=== PATIENT | male | born 1945 | race Caucasian/White ===

== ENCOUNTER → 2017-10-26 13:02 | Outpatient (CLI) | payer MEDICARE, OTHER, SELFPAY ==
[2017-10-26 15:57] LABS: PSA,Total - Annual Screen 0.28 ng/mL (0.00-4.00)
== END ==
PROVIDERS: Family Provider Family Medicine; PCP Family Medicine; Visit Provider Urology
DX: Z12.5 Encounter for screening for malignant neoplasm of prostate (principal)
CPT/HCPCS: 36415; 84153; G0103

== ENCOUNTER → 2018-04-25 10:04 | Outpatient (CLI) | payer MEDICARE, OTHER, SELFPAY ==
[2018-04-25 11:13] LABS: PSA,Total- Diagnostic 0.37 ng/mL (0.0-4.0)
== END ==
PROVIDERS: Family Provider Family Medicine; PCP Family Medicine; Referring Provider Urology; Visit Provider Urology
DX: C61 Malignant neoplasm of prostate (principal)
CPT/HCPCS: 36415; 84153

== ENCOUNTER → 2018-05-10 08:12 | Outpatient (CLI) | payer MEDICARE, OTHER, SELFPAY ==
--- NOTE | 2018-05-10 08:18 | CT_ITS ---
STUDY: CT ABDOMEN AND PELVIS WITH AND WITHOUT CONTRAST REASON FOR EXAM: Male, 73 years old. Gross hematuria, 5 months follow-up. History of prostate cancer with radiation. RADIATION DOSAGE (If Supplied By Facility): CTDIvol = ( 23.88 ) mGy, DLP = ( 3432.61 ) mGycm TECHNIQUE: Transaxial images were obtained from the dome of the diaphragm to the symphysis pubis without oral contrast. 100 ml of Isovue 300 contrast was administered. Sagittal and coronal images were reconstructed. Individualized dose optimization techniques were used for this CT. COMPARISON: CT scan pelvis 01/06/2016. CT scan abdomen and pelvis 09/15/2015. FINDINGS: The visualized lung bases are unremarkable. The visualized portions of the heart are within normal limits. There is decreased attenuation of the liver consistent with steatosis. There are 3 small liver cysts. Normal gallbladder and extrahepatic biliary system. Normal spleen. There is an accessory spleen. Normal pancreas. Normal bilateral adrenal glands. There is a 5 mm hyperdense anterior mid right renal nodule, probably representing a hyperdense cyst. Otherwise normal kidney. Normal left kidney. Assessment the stomach is limited by nondistention. Normal small intestine. There are multiple colonic diverticula consistent with diverticulosis. The appendix is visualized on series 5, axial images 50-53 and it appears normal.. There is diffuse atherosclerotic calcification of the abdominal aorta, without a demonstrated aneurysm. Normal inferior vena cava. Normal retroperitoneum. There are brachytherapy seeds in the prostate gland. There is diffuse mural thickening of the urinary bladder, similar to the previous exams. There are multiple small urinary bladder diverticula, which were also previously present. There is a small umbilical hernia containing fat, but no bowel. There are diffuse degenerative changes of the visualized lumbar spine. CT/CT Abd/Pelvis W/WO Contrast IMPRESSION: Diffusely thick-walled urinary bladder with multiple small diverticula, not significantly different from the previous exams. Brachy therapy seeds in the prostate gland. Fatty liver. Small liver cysts. Colonic diverticulosis, without evidence for acute diverticulitis. Small hyperdense right renal cyst. No demonstrated urinary calculi or hydronephrosis. Atherosclerosis. No evidence for acute pathology. Electronically Signed: Toby Pagan MD at 20:12 EST , Service support ,
[2018-05-10 08:36] LABS: CREATININE FINGERSTICK 0.8 mg/dL (0.70-1.30); EGFR FINGERSTICK > 60.0000 mL/min (>60)
== END ==
PROVIDERS: Family Provider Family Medicine; PCP Family Medicine; Referring Provider Urology; Visit Provider Urology
DX: R31.0 Gross hematuria (principal)
CPT/HCPCS: 74178; Q9967

== ENCOUNTER 2018-06-12 09:53 | Day surgery (SDC) | payer MEDICARE, OTHER, SELFPAY ==
[2018-06-05 13:16] VITALS: BP 158/92; PULSE 96; RESP 18; TEMP 37.7; O2SAT 97; BMI 33.2
--- NOTE | 2018-06-05 14:06 | SDCEKG_ITS ---
Test Reason : Blood Pressure : / mmHG Vent. Rate : 091 BPM Atrial Rate : 091 BPM P-R Int : 190 ms QRS Dur : 094 ms QT Int : 366 ms P-R-T Axes : 040 071 051 degrees QTc Int : 450 ms Normal sinus rhythm Normal ECG Confirmed by LUIS FOX, JORGITO ([id number]), proposal editor KAL AMADOR ([id number]) on 06/10/2018 11:14:43 AM Referred By: Prasad Pitt Confirmed By:JORGITO SMITH MD
[2018-06-05 15:24] LABS: International Normalized Ratio 0.9; Prothrombin Time (Protime)PT. 12.6 SECONDS (11.7-14.9)
[2018-06-05 15:25] LABS: Partial Thromboplast Time 30.6 Seconds (24.1-36.2)
[2018-06-05 15:47] LABS: AST(SGOT) 32 U/L (15-37); Alanine Aminotransfer ALT/SGPT 46 U/L (16-61); Albumin, Serum 3.8 g/dL (3.2-5.0); Alkaline Phosphatase 96 U/L (45-117); Globulin 3.9 g/dL (2.2-4.2); Protein, Total 7.7 g/dL (6.4-8.2)
[2018-06-05 16:25] LABS: Hematocrit 43.1 % (40-54); Hemoglobin 14.8 g/dl (13.0-16.5); Mean Corp Hgb Conc 34.3 g/gl (32-36); Mean Corpuscular Hgb 32.5 pg (27.0-32.0); Mean Corpuscular Volume 94.7 fL (80-94); Mean Platelet Vol. 9.3 fl (6.2-12.0); Platelet Count 178 K/mm3 (150-450); RBC Distribution Width CV 12.2 % (11.6-14.6); RBC Distribution Width SD 41.8 fl (35.1-43.9); Red Blood Count 4.55 M/mm3 (4.6-6.2); Scan Indicated on CBC? Y/N NO; White Blood Count 7.1 K/mm3 (4.4-11.0)
--- NOTE | 2018-06-11 17:15 | PCM.HP.BLA ---
History and Physical Date of Admission: 06/12/18 Patient returns, 73-year-old male with a history of radiation treatment in the past prostate cancer presented the office with gross hematuria and body passing tissue. CAT scan was done with just a thick and bladder no clear abnormalities. Today will do a cystoscopy. ALLERGIES: None MEDICATIONS: Amlodipine Besylate 5 mg tablet 1 tablet PO Daily Aspir 81 1 PO Daily Cod Liver Oil Ketoconazole Klor-Con Metoprolol Succinate 50 mg tablet, extended release 24 hr 1 tablet PO BID Multivitamin PSH: Depolupron 1 3 4 Month - 2017, 01/25/2016, 2015 PL[address] RT DEVICE/MARKER, PROS - 2015 Prostate Needle Biopsy - 2015 Radiation Therapy - 03/28/2016 Transrectal Biopsy US - 2015, 2015 NON- PSH: Colonoscopy - 2016 Patient documented to have received pneumococcal vaccination PMH: Gross hematuria - 05/02/2018 Hematospermia - 11/06/2017 Erectile dysfunction due to arterial insufficiency - 05/08/2017 Malignant neoplasm of prostate - 05/08/2017, - 01/25/2016, - 2015, - 2015 Elevated prostate specific antigen [PSA] - 2015, - 2015, - 2015 Nocturia, 2x at night - 2015, - 2015, - 2015 NON- PMH: Essential (primary) hypertension - 2015 Mixed conductive and sensorineural hearing loss, bilateral - 2015 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 FAMILY HISTORY: Cancer - Mother SOCIAL HISTORY: Marital Status: Preferred Language: Upper Sorbian; Ethnicity: Not Or ; Race: White Current Smoking Status: Patient does not smoke anymore. Tobacco Use Assessment Completed: Used Smokeless in last 30 days? Smoking cessation counseling was provided. Does not use smokeless tobacco. Does drink. Does not use drugs. Drinks 2 caffeinated drinks per day. Has not had a blood transfusion. REVIEW OF SYSTEMS: Constitutional: Patient reports weight loss. Patient denies fever, chills, and weight gain. Genitourinary: Patient reports get up at night to void and blood in the urine. Patient denies frequent urination, urinary retention, leakage of urine, painful urination, frequent uti's, history of stones, difficulty starting stream, weak stream/scanty, and bedwetting. Notes: Reviewed previous review of systems 05/02/2018. No changes. VITAL SIGNS: 05/16/2018 01:59 PM Weight 215 lb / 97.52 kg Height 70 in / 177.8 cm BP 138/72 mmHg BMI 30.8 kg/m? - BMI Counseling was provided. PHYSICAL EXAMINATION: Scrotum: No lesions. No edema. No cysts. No warts. Epididymides: Right: no spermatocele, no masses, no cysts, no tenderness, no induration, no enlargement. Left: no spermatocele, no masses, no cysts, no tenderness, no induration, no enlargement. Testes: No tenderness, no swelling, no enlargement left testes. No tenderness, no swelling, no enlargement right testes. Normal location left testes. Normal location right testes. No mass, no cyst, no varicocele, no hydrocele left testes. No mass, no cyst, no varicocele, no hydrocele right testes. Urethral Meatus: Normal size. No lesion, no wart, no discharge, no polyp. Normal location. Penis: Circumcised, no warts, no cracks. No dorsal Peyronie's plaques, no left corporal Peyronie's plaques, no right corporal Peyronie's plaques, no scarring, no warts. No balanitis, no meatal stenosis. MULTI-SYSTEM PHYSICAL EXAMINATION: Constitutional: Well-nourished. No physical deformities. Normally developed. Good grooming. Neck: Neck symmetrical, not swollen. Normal tracheal position. Respiratory: No labored breathing, no use of accessory muscles. Cardiovascular: Normal temperature, normal extremity pulses, no swelling, no varicosities. Lymphatic: No enlargement of neck, axillae, groin. Skin: No paleness, no jaundice, no cyanosis. No lesion, no ulcer, no rash. Neurologic / Psychiatric: Oriented to time, oriented to place, oriented to person. No depression, no anxiety, no agitation. Gastrointestinal: No mass, no tenderness, no rigidity, non obese abdomen. Eyes: Normal conjunctivae. Normal eyelids. Ears, Nose, Mouth, and Throat: Left ear no scars, no lesions, no masses. Right ear no scars, no lesions, no masses. Nose no scars, no lesions, no masses. Normal hearing. Normal lips. Musculoskeletal: Normal gait and station of head and neck. PAST DATA REVIEWED: Source Of History: Patient 04/25/18 10/26/17 04/05/17 10/23/16 01/04/16 07/09/15 06/24/14 12/23/13 PSA Total PSA 0.37 ng/mL 0.28 ng/mL 0.2 mg/dl 0.04 ng/mL 0.64 mg/dl 9.5 mg/dl 6.4 mg/dl 7.8 mg/dl Notes [facility] [address] [place], [address] This test was performed using the TPSA assay method for the Dimension chemistry system. Values obtained with different assay methods cannot be used interchangably. When changing PSA assays in the course of monitoring a patient, additional sequential testing should be carried out to confirm baseline values. [facility] [address] [place], [place], [id number] This test was performed using the TPSA assay method for the Dimension chemistry system. Values obtained with different assay methods cannot be used interchangably. When changing PSA assays in the course of monitoring a patient, additional sequential testing should be carried out to confirm baseline values. [facility] [address] [place], [place], [id number] This test was performed using the TPSA assay method for the Dimension chemistry system. Values obtained with different assay methods cannot be used interchangably. When changing PSA assays in the course of monitoring a patient, additional sequential testing should be carried out to confirm baseline values. PROCEDURES: Flexible Cystoscopy - 13243 Risks, benefits, and some of the potential complications of the procedure were discussed at length with the patient including infection, bleeding, voiding discomfort, urinary retention, fever, chills, sepsis, and others. All questions were answered. Informed consent was obtained. Antibiotic prophylaxis was given. Sterile technique and intraurethral analgesia were used. Meatus: Normal size. Normal location. Normal condition. Urethra: No strictures. External Sphincter: Normal. Verumontanum: Normal. Prostate: Non-obstructing. Mild hyperplasia. Bladder Neck: Non-obstructing. Ureteral Orifices: Normal location. Normal size. Normal shape. Effluxed clear urine. 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 At the hold his aspirin before the procedure for five days.
--- NOTE | 2018-06-12 | BLB_PTH ---
PATIENT: ELLIOTT CARMONA [place] [facility] [id number] AGE/SX: 73/M ROOM: RE06/12/[address]: Dr. Prasad Pitt MD : 1945 BED: DIS: 06/12/2018 SPEC #: [id number] RECD: 06/12/18 15:25 STATUS: SHANNON ALFONZO #: [id number] CORY: 06/12/18 00:[address]: Prasad Pitt DEPT: SURGICAL PATHOLOGY RECD BY: Donn Byers ENTERED: 06/13/18 07:52 SP TYPE: TURB OTHR DR: Dr. Alireza Dotson MD Tissues: Urinary bladder, NOS Procedures: Surgery Specimen Level V HEADER OPERATION: Cysto, transurethral resection bladder, Olymp[employer] PRE-OP DIAGNOSIS: Bladder tumor TISSUE SUBMITTED: Bladder tumor MICROSCOPIC DIAGNOSIS Bladder tumor, TUR: Papillary urothelial carcinoma. See cancer summary below. BLADDER CANCER (TUR) SUMMARY: Procedure - TURBT Histologic type - urothelial (transitional cell) carcinoma. Associated epithelial lesions - none identified. Histologic grade - urothelial carcinoma (WHO 2004/ISUP) - low grade (1/3) Tumor configuration - papillary Adequacy of material for determining muscularis propria invasion - muscularis propria (detrusor muscle) is not identified. Lymph-Vascular invasion - not identified Microscopic extent of tumor - noninvasive papillary carcinoma. Additional pathologic findings - none The above summary is in compliance with [employer] (CAP) Cancer Protocols Checklist and [place] Joint Committee on Cancer (AJCC), Staging Manual, 8th Ed. SJ:rg 06/14/18 COMMENT Please make reference to previous specimen ([id number]) right prostate, mid and base and left prostate mid and base, core biopsies with diagnosis of prostatic adenocarcinoma. Case has been reviewed in consultation with Dr. Sorto who concurs with the above diagnosis. IDC:AM MICROSCOPIC DESCRIPTION Slides are reviewed. GROSS DESCRIPTION Received in fixative is one container labeled with the patient's name and designated bladder tumor. The specimen consists of one irregular fragment of light garcia soft tissue that measures 0.3 x 0.3 x 0.1 cm. The specimen is totally submitted in one cassette. / JEANNINE:cammy 06/13/18 TC:0 CPT: 01406
[2018-06-12 10:12] VITALS: BP 164/96; PULSE 83; RESP 18; TEMP 36.8; O2SAT 100; BMI 33.2
[2018-06-12] MEDS: Cefazolin 2 GM in 0.9% Normal Saline 100 ML IV (11:22)
--- NOTE | 2018-06-12 11:37 | DCINST_ITS ---
Discharge Diet: Light diet - advance as tolerated Discharge Activity: Return to Normal Activity Call your doctor if your incision/area has: Sudden Increased Bleeding Call your doctor if you observe: Inability to urinate, Uncontrolled pain Suture Line Care: Avoid Pulling/Pushing, Avoid Pinching/Bending Instructions: Treating Bladder Cancer: TUR (Transurethral Resection) Allergies/Adverse Reactions: Allergies No Known Allergies Allergy (Verified 06/05/18 13:06) Medications to take at Discharge Amlodipine [Norvasc] 5 mg PO QHS 06/05/18 Aspirin E.C. [Ecotrin] 81 mg PO DAILY@0800 06/05/18 Cod Liver Oil 1 each PO BID 06/05/18 Ketoconazole [Nizoral A-D] 125 ml TP DAILY 06/05/18 Ketoconazole [Nizoral] 1 applic TOPICAL DAILY 06/05/18 Metoprolol Tartrate [Lopressor (Beta Douglas)] 50 mg PO 0600 06/05/18 Metoprolol Tartrate [Lopressor (Beta Douglas)] 100 mg PO 1900 06/05/18 Multivitamin with Minerals [Multiple Vitamin] 1 each PO DAILY 06/05/18 Potassium Chloride [Klor-Con M20] 20 meq PO DAILY 06/05/18 Primary Care Physician: Alireza Dotson [Primary Care Provider] - Test Results: Test results from this visit will be discussed in further detail at your follow- up appointment, if applicable. Please Follow Up With: Prasad Pitt MD When: in 2 weeks, please call to make an appointment.
--- NOTE | 2018-06-12 11:40 | OP.PCM_ITS ---
Report of Operation Date of Procedure: 06/12/18 Pre-Operative Diagnosis: Bladder tumor in the trigone Post-Operative Diagnosis: Same Surgery/Procedure Performed:: Transurethral resection of a bladder tumor in the trigone and also resection of the posterior wall tumor Description of Surgical Findings:: 73-year-old male who I saw in the office for a tumor in his trigone he also has another lesion in the posterior wall the bladder today presents to the hospital for transurethral resection of these tumors and instillation of mitomycin-C. 73-year-old male taken back to the operating room after smooth induction of general anesthesia he was placed supine on the table in the dorsolithotomy position. The penis and testicles are prepped and draped in usual sterile fashion. Went into the bladder with a 24 Hungarian noncontinuous flow bipolar re sectoscope inspected the bladder and could see the tumor was above the left ureteral orifice I then resected this tumor completely down to the base cauterized the base did not involve the left ureteral orifice. And then there was another tumor in the posterior wall the bladder this was cauterized. I then did a cystoscopy looking around again for more tumors looking both with 30 and 70 degree lens he had some mild irritation throughout the bladder but no other tumors were visible some redness here and there but no clear tumors were seen. After cauterizing the tumor I then resected the base of the tumors cauterized the base I drain the bladder with a catheter and then placed mitomycin-C into the bladder 40 cc of 40 mg of mitomycin-C. After instilling the treatment into the bladder I then took out the catheter patient anesthetic is being reversed we will see him back in the office in 2 weeks for follow-up after the resection. Type of Anesthesia:: General Drains: none - Admit VTE Documentation VTE Present on Admission: No VTE Mechan Device Prophylaxis: SCD's
[2018-06-12 11:43] VITALS: BP 111/68; BP 164/96; PULSE 75; RESP 16; TEMP 36.7; O2SAT 95
[2018-06-12 12:00] VITALS: BP 137/78; BP 164/96; PULSE 71; RESP 16; O2SAT 94
[2018-06-12 12:17] VITALS: BP 134/82; BP 164/96; PULSE 72; RESP 16; TEMP 36.7; O2SAT 94
[2018-06-12 12:55] VITALS: BP 135/78; BP 164/96; PULSE 78; RESP 18; TEMP 36.8; O2SAT 100
== END 2018-06-12 13:07 | disposition home or self-care (01) ==
LOC: SDC 09:53 → AC 09:54
PROVIDERS: Anesthesiology; Family Provider Family Medicine; PCP Family Medicine; Referring Provider Urology; Visit Provider Urology
PROC: 0TBB8ZZ Excision of Bladder, Via Natural or Artificial Opening Endoscopic (ICD-10-PCS; CPT 52250; principal; 2018-06-12 11:45)
DX: C67.9 Malignant neoplasm of bladder, unspecified (principal); I10 Essential (primary) hypertension; R31.0 Gross hematuria; Z85.46 Personal history of malignant neoplasm of prostate; Z87.891 Personal history of nicotine dependence; Z86.718 Personal history of other venous thrombosis and embolism; Z86.73 Personal history of transient ischemic attack (TIA), and cerebral infarction without residual deficits; Z79.82 Long term (current) use of aspirin; Z79.899 Other long term (current) drug therapy
CPT/HCPCS: 52250; 80076; 85027; 85610; 85730; 88307; 93005; J7120; J2405; J3490; J9280

== ENCOUNTER → 2018-09-09 11:24 | Outpatient (CLI) | payer MEDICARE, OTHER, SELFPAY | PROVIDERS: Family Provider Family Medicine; PCP Family Medicine; Referring Provider Urology; Visit Provider Urology | DX: C61 Malignant neoplasm of prostate (principal) | CPT/HCPCS: 36415; 84153 ==

== ENCOUNTER → 2018-12-16 | Outpatient (CLI) | payer MEDICARE, OTHER, SELFPAY ==
[2018-12-16 14:47] LABS: PSA,Total- Diagnostic 0.41 ng/mL (0.0-4.0)
== END | disposition home or self-care (01) ==
LOC: LAB 12:34
PROVIDERS: Family Provider Family Medicine; PCP Family Medicine; Referring Provider Urology; Visit Provider Urology
DX: C61 Malignant neoplasm of prostate (principal)
CPT/HCPCS: 36415; 84153

== ENCOUNTER → 2018-12-23 | Outpatient (CLI) | payer MEDICARE, OTHER, SELFPAY ==
--- NOTE | 2018-12-23 12:00 | CYSPIN_PTH ---
PATIENT: ELLIOTT CARMONA LOC: [facility] U#:[id number] AGE/SX: 73/M ROOM: RE12/23/[address]: Dr. Prasad Pitt MD : 1945 BED: DIS: 12/23/2018 SPEC #: [id number] RECD: 12/24/18 14:03 STATUS: SHANNON ALFONZO #: [id number] CORY: 12/23/18 12:[address]: Prasad Pitt DEPT: CYTOLOGY RECD BY: Ken Cordero ENTERED: 12/24/18 14:04 SP TYPE: CYSPIN FL OTHR DR: Dr. Alireza Dotson MD Tissues: Urine Procedures: Pap Stain (control) Special Stain Group II Cytospin Fluid HEADER OPERATION: Not noted PRE-OP DIAGNOSIS: Bladder cancer TISSUE SUBMITTED: Urine DIAGNOSIS CYTOLOGY Urine for cytology (Cytospin): Atypical urothelial cells noted. Numerous crystals are also noted. See comment. SJ:khadar 12/25/18 COMMENT Please make reference to previous specimen [id number] bladder tumor TUR diagnosis of papillary urothelial carcinoma. Case has been reviewed in consultation with Dr. Sorto who concurs with the above diagnosis. IDC:AM CYTOLOGY STUDY Slides are reviewed. CYTOLOGY GROSS Received is 40 ml of clear ilsa fluid labeled with the patient's name and and designated per the requisition as urine. Submitted for cytology preparation. /RB:cc 12/24/18 TC: 5 CPT: 00625
[2018-12-23 17:34] LABS: Cytology, Body Fluid / CSF SEE PATHOLOGY REPORT
== END | disposition home or self-care (01) ==
LOC: LABSPEC 17:16
PROVIDERS: Family Provider Family Medicine; PCP Family Medicine; Referring Provider Urology; Visit Provider Urology
DX: C67.9 Malignant neoplasm of bladder, unspecified (principal)
CPT/HCPCS: 88108; 88313

== ENCOUNTER → 2019-03-18 13:15 | Outpatient (CLI) | payer MEDICARE, OTHER, SELFPAY ==
[2019-03-18 14:08] LABS: PSA,Total- Diagnostic 0.44 ng/mL (0.0-4.0)
== END ==
PROVIDERS: Family Provider Family Medicine; PCP Family Medicine; Referring Provider Urology; Visit Provider Urology
DX: C61 Malignant neoplasm of prostate (principal)
CPT/HCPCS: 36415; 84153

== ENCOUNTER → 2019-09-25 | Outpatient (CLI) | payer MEDICARE, OTHER, SELFPAY ==
[2019-09-25 12:16] LABS: PSA,Total- Diagnostic 0.64 ng/mL (0.0-4.0)
== END | disposition home or self-care (01) ==
LOC: LAB 10:51
PROVIDERS: PCP Family Medicine; Referring Provider Urology; Visit Provider Urology
DX: R97.20 Elevated prostate specific antigen [PSA] (principal)
CPT/HCPCS: 36415; 84153

== ENCOUNTER → 2019-09-29 | Outpatient (CLI) | payer MEDICARE, OTHER, SELFPAY ==
--- NOTE | 2019-09-29 11:00 | CYSPIN_PTH ---
PATIENT: ELLIOTT CARMONA LOC: [facility] U#:[id number] AGE/SX: 74/M ROOM: RE09/29/[address]: Dr. Prasad Pitt MD : 1945 BED: DIS: 09/29/2019 SPEC #: [id number] RECD: 09/30/19 09:20 STATUS: SHANNON ALFONZO #: [id number] CORY: 09/29/19 11:[address]: Prasad Pitt DEPT: CYTOLOGY RECD BY: Ken Cordero ENTERED: 09/30/19 09:21 SP TYPE: CYSPIN FL OTHR DR: Dr. Alireza Dotson MD Tissues: Urine Procedures: Pap Stain (control) Special Stain Group II Cytospin Fluid HEADER OPERATION: Not noted PRE-OP DIAGNOSIS: Malignant neoplasm of bladder TISSUE SUBMITTED: Urine for cytology DIAGNOSIS CYTOLOGY Urine for cytology (cytospin): Rare atypical urothelial cells are present. Abundant crystalline debris. AM:cammy 10/01/19 CYTOLOGY STUDY Slides are reviewed. CYTOLOGY GROSS Received is 80 ml of gold cloudy fluid labeled with the patient's name and and designated per the requisition as urine. Submitted for cytology preparation. / cammy 09/30/19 TC:? CPT: 26527
[2019-09-29 16:57] LABS: Cytology, Body Fluid / CSF SEE PATHOLOGY REPORT
== END | disposition home or self-care (01) ==
LOC: LABSPEC 16:43
PROVIDERS: PCP Family Medicine; Visit Provider Urology
DX: C67.9 Malignant neoplasm of bladder, unspecified (principal)
CPT/HCPCS: 88108; 88313

== ENCOUNTER → 2020-03-31 12:10 | Outpatient (CLI) | payer MEDICARE, OTHER, SELFPAY ==
[2020-03-31 13:14] LABS: PSA,Total- Diagnostic 0.63 ng/mL (0.0-4.0)
== END ==
PROVIDERS: PCP Family Medicine; Visit Provider Urology
DX: C61 Malignant neoplasm of prostate (principal)
CPT/HCPCS: 36415; 84153

== ENCOUNTER → 2020-09-30 13:08 | Outpatient (CLI) | payer MEDICARE, OTHER, SELFPAY ==
[2020-09-30 14:54] LABS: PSA,Total- Diagnostic 0.74 ng/mL (0.0-4.0)
== END ==
PROVIDERS: PCP Family Medicine; Referring Provider Urology; Visit Provider Urology
DX: C61 Malignant neoplasm of prostate (principal)
CPT/HCPCS: 36415; 84153

== ENCOUNTER → 2021-04-01 08:21 | Outpatient (CLI) | payer MEDICARE, OTHER, SELFPAY ==
[2021-04-01 10:40] LABS: PSA,Total- Diagnostic 0.74 ng/mL (0.0-4.0)
== END ==
PROVIDERS: PCP Family Medicine; Referring Provider Urology; Visit Provider Urology
DX: C61 Malignant neoplasm of prostate (principal)
CPT/HCPCS: 36415; 84153

== ENCOUNTER 2021-08-05 09:47 | Day surgery (SDC) | payer MEDICARE, OTHER, SELFPAY ==
[2021-08-05] VITALS (7 sets, daily range): BP systolic 151–168; BP diastolic 79–104; PULSE 80–86; RESP 16–18; TEMP 36.1–37.1; O2SAT 95–100; BMI 32.3
--- NOTE | 2021-08-05 10:15 | RAD_ITS ---
STUDY: X-RAY CHEST REASON FOR EXAM: Male, 76 years old. pos. Pneumonia on 07/29 TECHNIQUE: Single AP portable view of the chest. COMPARISON: Comparison is made with prior study 02/17/2016. FINDINGS: Hyperinflation. Blunting of the left costophrenic angle. Normal size heart. Normal mediastinum and juan. Normal visualized pulmonary arteries. There is atherosclerotic tortuosity of the aortic arch and descending thoracic aorta. There are diffuse degenerative changes of the visualized thoracic spine. Normal visualized ribs, clavicles, and shoulders. There is no demonstrated abnormality of the visualized soft tissue structures of the upper abdomen. RAD/Chest 1 View (Portable) IMPRESSION: Hyperinflation. Blunting of the left costophrenic angle. Electronically Signed: Raul Nicole MD at 10:34 EDT ,
[2021-08-05] MEDS: Lactated Ringers 1,000 ML 15 ML IV (11:05)
[2021-08-05 11:20] LABS: International Normalized Ratio 1.1; Prothrombin Time (Protime)PT. 13.4 SECONDS (11.7-14.9)
[2021-08-05 11:21] LABS: Partial Thromboplast Time 26.6 Seconds (24.1-36.2)
--- NOTE | 2021-08-05 11:39 | HP.PCM_ITS ---
HPI - General HPI Narrative ELLIOTT CARMONA is a 76-year-old male who sustained a left ankle fracture after a syncopal episode at home on 07/29/2021. He was subsequently brought to [facility] emergency department where x-rays revealed a bimalleolar ankle fracture dislocation. No reduction was performed in emergency department. He was subsequently admitted for syncopal work-up which was relatively benign apparently and discharged to [facility]. He was seen in my office on 08/03/2021. X-rays confirmed continued ankle fracture dislocation. I attempted a closed reduction in the office under local anesthesia which was unsuccessful. Surgical intervention in the form of left ankle closed reduction under anesthesia and application of left ankle external fixator was recommended. The risk, benefits, alternatives to procedure reviewed with patient at length. He denies any numbness or tingling. [facility] Medical History Alcohol use Back pain Bladder disease Blood clot in vein Cancer Chewing tobacco use Easy bruising Former smoker History of edema History of stress test Hypertension Injury of back Injury of head and neck Loss of consciousness Loss of hearing Migraine headache penit[facility]iary resident Prostate disease Restless legs Syncope TIA (transient ischemic attack) Uses wheelchair Wears glasses Home Medications amlodipine 10 mg PO QHS 06/05/18 [History Last Taken Unknown] aspirin 81 mg PO QHS 06/05/18 [History Last Taken Unknown] metoprolol tartrate 50 mg PO DAILY 06/05/18 [History Last Taken 08/05/21 07:00] metoprolol tartrate 100 mg PO QHS 06/05/18 [History Last Taken Unknown] potassium chloride [Klor-Con M20] 40 meq PO DAILY 06/05/18 [History Last Taken Unknown] atorvastatin 20 mg PO QHS 08/04/21 [History Last Taken Unknown] tamsulosin [Flomax] 0.4 mg PO QHS 08/04/21 [History Last Taken Unknown] Allergy/AdvReac Type Severity Reaction Status Date / Time No Known Allergies Allergy Verified 08/05/21 10:38 Surgical History Hx of colonoscopy Hx of cystoscopy Social History Smoking Status: Current some day smoker tobacco type: cigarettes and smokeless tobacco ROS ROS Narrative 12 point review systems obtained, negative unless otherwise noted in HPI Vital Signs Vital Signs Vital Signs: 08/05/21 10:40 08/05/21 10:42 Temperature 97.9 F Temperature Source Temporal Pulse Rate 84 Respiratory Rate 18 Respiratory Pattern Normal Blood Pressure 153/79 H Blood Pressure Mean 103 Blood Pressure Source Monitor Blood Pressure Position Semi-Fowlers Blood Pressure Location Left Arm Pulse Ox 99 Oxygen Delivery Method Room Air Weight Weight: 225 lb 0.641 oz Body Mass Index (BMI) 32.3 Physical Exam Narrative General -A&Ox3, NAD, appears stated age. Vital signs stable, afebrile. Respiratory -normal work of breathing, no intercostal retractions. CV -pulses regular, brisk capillary refill ?4 limbs. Abdomen-soft, nontender, nondistended. No guarding, rigidity, rebound tenderness. Musculoskeletal/neurologic -full range of motion nontender throughout bilateral upper extremities, right lower extremity with full sensation and strength in all dermatomes and myotomes. No midline cervical tenderness. Left lower extremity-Short leg splint in place. Blistering noted medial and lateral after splint when doing, otherwise intact.. Brisk capillary refill. Sensation intact light touch L3-S1 dermatomes. DF, PF, EHL intact. DP, PT 2+. Pelvis is stable, nontender. Results Lab / Micro Data Labs: Laboratory Results - last 24 hr 08/05/21 11:00: PT 13.4, INR 1.1, APTT 26.6 Radiology Impression Chest X-Ray 08/05/21 10:15 IMPRESSION: Hyperinflation. Blunting of the left costophrenic angle. Electronically Signed: Raul Nicole MD at 10:34 EDT , Assessment & Plan Assessment/Plan (1) Fracture of ankle, bimalleolar, left, closed: PLAN: Recommending close reduction under anesthesia left ankle with application of external fixator. Informed site obtained in the office Plan to proceed with surgery All questions answered to patient satisfaction Plan for discharge back to nursing facility following surgery.
[2021-08-05] MEDS: Cefazolin 2 GM in 0.9% Normal Saline 100 ML IV (11:45)
--- NOTE | 2021-08-05 12:00 | RAD_ITS ---
HISTORY: ANKLE NANCY FX CLOSED REDUCTION. TECHNIQUE: XR Ankle Min 3 Views. Spot images: 7. Number of images including paperwork: 8. COMPARISON: None. FINDINGS: OSSEOUS STRUCTURES: Surgical instruments overlying malleolar fractures. FLUOROSCOPY TIME: 71.4 seconds. DOSAGE: 2.68 mGy. RAD/Ankle min 3 Views IMPRESSION: ORIF of left ankle fractures. Please refer to procedure note. at 1315 Reported and signed by: Francine Barth MD Electronically Signed: Francine Barth MD at 13:14 EDT ,
--- NOTE | 2021-08-05 13:08 | PCM.DC ---
Discharge Instructions Follow Up Care Test Results: Test results from this visit will be discussed in further detail at your follow-up appointment, if applicable. Discharge Plan Admission Primary Reason for Your Visit: Left ankle fracture Attending Provider: Arun Pastrana Primary Care Provider: Alireza Dotson Instructions Additional Instructions / Restrictions: Follow preprinted instructions from your surgeons office. Discharge Orders/Prescriptions Prescriptions: No Action metoprolol tartrate 100 MG tablet 100 mg PO QHS RF: 0 amlodipine 5 MG tablet 10 mg PO QHS RF: 0 aspirin 81 MG tablet 81 mg PO QHS RF: 0 potassium chloride [Klor-Con M20] 20 MEQ tablet,ER particles/crystals 40 meq PO DAILY RF: 0 metoprolol tartrate 50 MG tablet 50 mg PO DAILY RF: 0 atorvastatin 20 mg Tablet 20 mg PO QHS RF: 0 tamsulosin [Flomax] 0.4 mg Capsule 0.4 mg PO QHS RF: 0 Other Ambulatory Orders: Chest 1 View (Portable) (Routine) Timeframe: [id number] Facility: [facility] - Location: [facility] [place] Ordered By: Dr. Arun Pastrana Referrals / Follow Up: Arun Pastrana DO [STAFF PHYSICIAN] - 08/10/21 Alireza Dotson MD [Primary Care Provider] - Disposition Disposition (needs filled in before D/C Order can be placed): Home, Self Care
--- NOTE | 2021-08-05 13:08 | PCM.OPRPT ---
Report of Operation Date of Procedure: 08/05/21 Description of Surgical Findings:: Preoperative diagnosis: Left ankle bimalleolar fracture dislocation Postoperative diagnosis: Left ankle bimalleolar fracture dislocation Procedure: 1.. Closed reduction right ankle fracture dislocation 2.. Application of spanning external fixator right ankle Surgeon: Arun Pastrana DO Anesthesia: General LMA Anesthesiologist: Dr. Cardenas Complications: None apparent Drains: None Estimated blood loss: 20 cc Urinary output: None recorded IV fluids: Per anesthesia record Specimens: None Surgical implants: [employer] 3 external fixation system with apex pins times 3 5 mm diameter, calcaneus transfixing pin 4/5 x 250 mm. Coated Carbon connecting rods 400 mm x 2, 3/32 Capri wire x1 Surgical indications: ELLIOTT CARMONA is a 76-year-old male who sustained a left ankle fracture after a syncopal episode at home on 07/29/2021. He was subsequently brought to [facility] emergency department where x-rays revealed a bimalleolar ankle fracture dislocation. No reduction was performed in emergency department. He was subsequently admitted for syncopal work-up which was relatively benign apparently and discharged to [facility]. He was seen in my office on 08/03/2021. X-rays confirmed continued ankle fracture dislocation. I attempted a closed reduction in the office under local anesthesia which was unsuccessful. Surgical intervention in the form of left ankle closed reduction under anesthesia and application of left ankle external fixator was recommended. The risk, benefits, alternatives to procedure reviewed with patient at length. Informed consent obtained in the office. Description of procedure: Patient was identified in preoperative holding area by name, medical record number, and date of . Informed consent was confirmed with patient. The operative extremity was marked. Patient was brought to the operative suite and positioned supine a standard operating table. General anesthesia was induced. Splint was removed. We bumped the left hip to internally rotate the leg and elevated on bath blankets. We then prepped and draped the left lower extremity in a normal, sterile orthopedic fashion. We performed a timeout with all parties in attendance in agreement with the side, site, operation be performed. No concerns were voiced and we elected to proceed. 2 g Ancef was administered by anesthesia staff. We first examined the skin. There is significant ecchymosis and suspected early blistering over the anterior medial ankle and posterior lateral ankle. I performed a closed reduction maneuver with traction and varus force. C arm was used to demonstrate appropriate reduction. We then plan to apply our standard delta frame external fixator. I planned my tibial pins 10 cm proximal to the end of the suspected tibial fixation. I marked the skin at appropriate levels. Skin was sharply incised with 15 blade scalpel. We drilled bicortically for 2 pins. Pins were placed to an appropriate depth and tightened by hand. We then turned attention to the calcaneus. Using a perfect lateral fluoroscopic image of the ankle, I planned a transfixion pin of the calcaneus 2 cm anterior and proximal to the posterior plantar corner of the calcaneus. This was drilled bicortically and driven out the lateral skin. We drilled the pin to an appropriate depth. We then constructed our delta frame. Reduction maneuver was applied and held with traction. Fluoroscopic images were obtained and demonstrated continued lateral subluxation of the joint. I made the decision to place a percutaneous K wire through the patient's heel to further stabilize the ankle. A small stab incision was made on the plantar calcaneus and K wire was driven through the subtalar and traversing the ankle joint. We then tightened the frame ensuring stability. We then applied Xeroform and pressure dressing gauze and Thai wrap over top of the wounds and leg. Patient tolerated procedure well without complication. He was transferred to her hospital bed and subsequently to PACU in stable condition. Postoperative plan: Patient will be nonweightbearing to the operative extremity. He will likely need definitive fixation in the coming weeks once soft tissues allow. Follow-up in 1 week in the office. Definitive fixation pending soft tissue healing. Ice and Elevation. plan to [facility] back [facility]. Maintain surgical dressing until follow-up.
[2021-08-05] MEDS: Bupivacaine Mpf 0.5% 30 ML VIAL (13:15)
[2021-08-05] MEDS: Acetaminophen 500 MG Tablet 1000 MG PO (14:44)
== END 2021-08-05 23:59 | disposition home or self-care (01) ==
LOC: SDC 09:47 → AC 09:49
PROVIDERS: Anesthesiology; PCP Family Medicine; Referring Provider Student in an Organized Health Care Education/Training Program; Visit Provider Student in an Organized Health Care Education/Training Program
PROC: (CPT 27814; principal; 2021-08-05 11:15)
DX: S82.842A Displaced bimalleolar fracture of left lower leg, initial encounter for closed fracture (principal); I10 Essential (primary) hypertension; F17.220 Nicotine dependence, chewing tobacco, uncomplicated; Z86.73 Personal history of transient ischemic attack (TIA), and cerebral infarction without residual deficits; Z79.899 Other long term (current) drug therapy; Z79.82 Long term (current) use of aspirin; N42.9 Disorder of prostate, unspecified; Z86.718 Personal history of other venous thrombosis and embolism; G25.81 Restless legs syndrome
CPT/HCPCS: 27810; 20690; 01462; 71045; 73610; 76000; 85610; 85730; C1713; J7120; J2405

== ENCOUNTER 2021-08-18 07:07 | Day surgery (SDC) | payer MEDICARE, OTHER, SELFPAY ==
[2021-08-18 07:43] VITALS: BP 134/75; PULSE 71; RESP 18; TEMP 36.7; O2SAT 98; BMI 31.4
[2021-08-18] MEDS: Lactated Ringers 1,000 ML 15 ML IV ×2 (08:05→10:15)
--- NOTE | 2021-08-18 09:05 | RAD_ITS ---
INDICATION: FX EXAMINATION/TECHNIQUE: X-RAY - LEFT XR Ankle Min 3 Views 4 VIEWS COMPARISON: 08/05/2021. FINDINGS: 3 spot fluoroscopic images were obtained intraoperatively. Images demonstrate plate and screws internally fixating the distal fibula and 2 screws visualized internally fixating the medial malleolus, near anatomic bone alignment is visualized, no evidence of displaced bone fractures is seen. The ankle mortise is well-maintained. The talar dome is unremarkable. No radiologist was present for the procedure, please refer to operative report for details. RAD/Ankle min 3 Views IMPRESSION: Please refer to operative report for details. Electronically Signed: Aquilino Peres MD at 12:29 EDT ,
[2021-08-18] MEDS: Cefazolin 2 GM in 0.9% Normal Saline 100 ML IV (09:34)
[2021-08-18] MEDS: Bupivacaine 0.25% 30 ML Vial (11:49)
[2021-08-18] MEDS: BACITRACIN/POLYMYXIN B 15 GM Tube 1 APPLIC (11:50)
--- NOTE | 2021-08-18 12:10 | PCM.DC ---
Discharge Instructions Follow Up Care Test Results: Test results from this visit will be discussed in further detail at your follow-up appointment, if applicable. Discharge Plan Admission Primary Reason for Your Visit: Left ankle fixation Attending Provider: Arun Pastrana Primary Care Provider: Alireza Dotson Instructions Additional Instructions / Restrictions: Follow preprinted instructions from your surgeons office. Discharge Orders/Prescriptions Prescriptions: No Action metoprolol tartrate 100 MG tablet 100 mg PO QHS RF: 0 amlodipine 5 MG tablet 10 mg PO QHS RF: 0 aspirin 81 MG tablet 81 mg PO QHS RF: 0 potassium chloride [Klor-Con M20] 20 MEQ tablet,ER particles/crystals 40 meq PO DAILY RF: 0 metoprolol tartrate 50 MG tablet 50 mg PO DAILY RF: 0 atorvastatin 20 mg Tablet 20 mg PO QHS RF: 0 tamsulosin [Flomax] 0.4 mg Capsule 0.4 mg PO QHS RF: 0 hydrocodone-acetaminophen 5-325 mg Tablet 1 tab PO Q6H PRN (Reason: Pain) RF: 0 acetaminophen [Tylenol Ex Str Rapid Release] 500 mg Tablet 1,000 mg PO TID PRN (Reason: Pain) RF: 0 Referrals / Follow Up: Arun Pastrana DO [STAFF PHYSICIAN] - 08/31/21 Alireza Dotson MD [Primary Care Provider] - Disposition Disposition (needs filled in before D/C Order can be placed): Home, Self Care
[2021-08-18 12:14] VITALS: BP 134/75; BP 150/87; PULSE 77; RESP 16; TEMP 35.9; O2SAT 100
--- NOTE | 2021-08-18 12:27 | OP.PCM_ITS ---
Report of Operation Description of Surgical Findings:: Preoperative diagnosis: Left bimalleolar ankle fracture Postoperative diagnosis: Left bimalleolar ankle fracture with syndesmotic instability Procedure: 1. Removal of external fixator left ankle 2. Open reduction internal fixation left bimalleolar ankle fracture 3. Open reduction internal fixation left ankle syndesmosis Surgeon: Arun Pastrana DO Anesthesia: General endotracheal Anesthesiologist: Dr. Arce Complications: None Drains: None Estimated blood loss: 50 cc Urinary output: None recorded IV fluids: Per anesthesia record Specimens: None Surgical implants: [employer] 8 hole lateral locking plate, [employer] SynchFix, partially-threaded cancellous screws x2 Surgical indications: ELLIOTT CARMONA is a 76-year-old male who sustained a left ankle fracture after a syncopal episode at home on 07/29/2021. He was subsequently brought to [facility] emergency department where x-rays revealed a bimalleolar ankle fracture dislocation. No reduction was performed in emergency department. He was subsequently admitted for syncopal work-up which was relatively benign apparently and discharged to [facility]. He was seen in my office on 08/03/2021. X-rays confirmed continued ankle fracture dislocation. I attempted a closed reduction in the office under local anesthesia which was unsuccessful.I subsequently recommended and performed a closed reduction under anesthesia left ankle 08/05/2021 with application of ankle spanning external fi xator. Patient had fracture blistering developing. We followed the patient over the course of approximately 2 weeks and skin became appropriate for surgery. I recommended removal of external fixator and open reduction internal fixation left ankle bimalleolar fracture. We discussed the risks, benefits, and alternatives. The risks include but are not limited to bleeding, infection, loss of life or limb, risk of anesthesia, risk of nerve block, persistent pain, nonunion, malunion, posttraumatic arthritis, instability, need for additional surgery, failure of orthopedic hardware, persistent limp or need for assistive device. Patient expressed understanding of these risks and wished to proceed. Description of procedure: Patient was seen in preoperative holding area. They were identified by name, medical record number, date of . The operative extremity was marked with a surgical marker. We confirmed informed consent with the patient and all questions were answered to her satisfaction. In the preoperative holding area, a popliteal block was administered by the anesthesia staff. At time of the procedure, patient was brought to the operative suite and positioned supine on a standard operating table. All bony prominences were well-padded. General anesthesia was administered. After adequate anesthesia, a well-padded pneumatic tourniquet was applied to the left upper thigh. A large bump was placed in the patient's left hip. The left lower extremity was elevated on bath blankets for fluoroscopic imaging and access to the limb during surgery. We secured this with tape as well as the nonoperative extremity. We then performed a timeout with all parties in attendance and agree with the side, site, operation to be performed. No concerns were voiced and elected to proceed. 2 g Ancef was administered prior to incision by the anesthesia staff. I then remove the external fixator frame. Calcaneus pin was trimmed at the level of the skin and removed out the medial wound. K wire was removed from the calcaneus. We then prepped and draped the left lower extremity with a Betadine prep. While stabilizing the ankle, the operative extremity was exsanguinated with an Esmarch bandage. Tourniquet was inflated to 270 mmHg. Incision was planned over the lateral malleolus and distal fibular shaft centered over the level of the fracture. Skin was sharply incised with a 15 blade scalpel. Superficial bleeders were cauterized with Bovie cautery. We then bluntly dissected to the level of the fascia. Fascia was opened with Bovie cautery. I then encountered the superficial peroneal nerve which was protected throughout surgery. We bluntly dissected down to the level of the periosteum. Hohmann retractors were placed after fracture was encountered as well as the fibula. Periosteum was elevated at the level of the fracture approximately 2 to 3 mm. A [id number] reduction tenaculum was used to reapproximate the fracture site with excellent anatomic reduction. There was a significant anterior avulsion fracture from the AITFL noted as well. Given the comminution, I elected to proceed with bridge plating technique. I selected a lateral locking plate. Cortical screws were placed proximal to the fracture site in the fibular shaft. Locking screws were placed distally after the plate was compressed down to bone manually. Pointed reduction clamp was removed. I then turned my attention medially. A longitudinal incision was carried through skin subcutaneous tissue overlying the medial malleolus. Crossing vessels were cauterized Bovie cautery. Periosteum was encountered and entrapped within the transverse fracture site. This periosteum was excised along the fracture margins. I then reduced the fracture anatomically with a pointed reduction tenaculum. I placed 2 K wires across the fracture site through the tip of the medial malleolus. I then drilled unit cortically for partially-threaded cannulated cancellous screws. These were placed sequentially and tightened by hand. I then performed a stress exam of the syndesmosis. There was significant instability of the syndesmosis. We elected to proceed with suture button fixation of the syndesmosis. I drilled quad cortically and the orientation of the syndesmosis through the lateral locking plate. Button was secured to the medial sutured loop and sequentially tightened until excellent compression across the syndesmosis was appreciated. We then deflated the tourniquet. Final fluoroscopic images were obtained. Hemostasis was obtained with Bovie cautery. I anesthetized the sural nerve with 15 cc total 0.25 % plain bupivacaine. Dermis was reapproximated with 2-0 Vicryl suture. Skin was closed with interrupted horizontal mattress 3-0 nylon suture. External fixator sites were curetted, lavaged with saline, and dressed with bacitracin ointment. Sterile compression dressing was then applied to the incisions. A well-padded 3 sided AO type fiberglass splint was applied in maximal dorsiflexion. Patient was safely extubated in the operative suite and transferred to his gurney and subsequently to PACU in stable condition. Post Operative Plan: Weightbearing: Nonweightbearing operative extremity Antibiotics: 2 g Ancef x 1 dose preoperatively DVT Prophylaxis: Continue home aspirin Baldwin: None Dressing: Maintain splint, keep it clean dry and intact until follow-up X-Rays: 2 weeks postop in the office Pain Medication: Percocet Rx upon discharge Follow-up: 2 weeks post-operatively with me in the office
[2021-08-18 12:30] VITALS: BP 134/75; BP 151/93; PULSE 81; RESP 16; O2SAT 98
[2021-08-18 12:45] VITALS: BP 130/90; BP 134/75; PULSE 72; RESP 16; TEMP 36.1; O2SAT 98
[2021-08-18 13:05] VITALS: BP 134/75
== END 2021-08-18 23:59 | disposition home or self-care (01) ==
LOC: SDC 07:09 → AC 07:09
PROVIDERS: PCP Family Medicine; Referring Provider Student in an Organized Health Care Education/Training Program; Visit Provider Student in an Organized Health Care Education/Training Program
PROC: (CPT 27814; principal; 2021-08-18 08:45)
DX: S82.842D Displaced bimalleolar fracture of left lower leg, subsequent encounter for closed fracture with routine healing (principal); C80.1 Malignant (primary) neoplasm, unspecified; I10 Essential (primary) hypertension; E78.00 Pure hypercholesterolemia, unspecified; G25.81 Restless legs syndrome; M19.90 Unspecified osteoarthritis, unspecified site; Z86.73 Personal history of transient ischemic attack (TIA), and cerebral infarction without residual deficits; Z99.3 Dependence on wheelchair; Z79.899 Other long term (current) drug therapy; Z79.82 Long term (current) use of aspirin; Z87.891 Personal history of nicotine dependence
CPT/HCPCS: 27814; 20694; 64445; 01462; 73610; 76000; C1713; J7120; J2405

== ENCOUNTER → 2022-04-05 | Outpatient (CLI) | payer MEDICARE, OTHER, SELFPAY ==
[2022-04-05 12:29] LABS: PSA,Total- Diagnostic 0.63 ng/mL (0.0-4.0)
== END | disposition home or self-care (01) ==
LOC: LAB 10:59
PROVIDERS: PCP Family Medicine; Visit Provider Urology
DX: C61 Malignant neoplasm of prostate (principal)
CPT/HCPCS: 36415; 84153

== ENCOUNTER → 2022-05-11 | Outpatient (CLI) | payer MEDICARE, OTHER, SELFPAY ==
--- NOTE | 2022-05-11 14:03 | CT_ITS ---
STUDY: CT ABDOMEN AND PELVIS WITH AND WITHOUT CONTRAST REASON FOR EXAM: Male, 77 years old. HEMATURIA. History of prostate cancer. History of prior removal of 2 bladder polyps. RADIATION DOSAGE (If Supplied By Facility): CTDIvol = ( 26.82 ) mGy, DLP = ( 3693.47 ) mGycm TECHNIQUE: Transaxial images were obtained from the dome of the diaphragm to the symphysis pubis without oral contrast. IV 100mL Isovue-300 was administered. Sagittal and coronal images were reconstructed. Individualized dose optimization techniques were used for this CT. COMPARISON: Comparison is made with prior study dated 05/10/2018. FINDINGS: The visualized lung bases are unremarkable. Coronary artery calcification. Small cysts are seen throughout the liver parenchyma. Normal gallbladder and extrahepatic biliary system. Normal spleen. Normal pancreas. There is a small, circumscribed, smooth, low attenuation right adrenal mass, consistent with an adrenal adenoma. This measures 1.6 cm. Normal left adrenal gland. Mild degree of right hydronephrosis. Tiny calculi are seen at the right ureteropelvic junction. Normal left kidney. There is a small hiatal hernia. Normal small intestine. There are multiple colonic diverticula consistent with diverticulosis. The appendix is visualized and appears normal. There is diffuse atherosclerotic calcification of the abdominal aorta and its major visceral branches, without a demonstrated aneurysm. Normal inferior vena cava. Normal retroperitoneum. Diffuse bladder wall thickening with mild irregularity suggestive of possible early trabeculations. Mild enlargement of the prostate. Metallic radiation seeds and calcifications are seen within the prostate. There is a small umbilical hernia containing fat. There are diffuse degenerative changes of the visualized lumbar spine. CT/CT Abd/Pelvis W/WO Contrast IMPRESSION: Mild right hydronephrosis due to tiny calculi at the right ureteral pelvic junction. Scattered cysts in the liver parenchyma. Small right adrenal adenoma. Electronically Signed: Raul Nicole MD at 14:41 EST ,
[2022-05-11 14:36] LABS: CREATININE FINGERSTICK < 0.9 mg/dL (0.70-1.30); EGFR FINGERSTICK > 60.0000 mL/min (>60)
== END | disposition home or self-care (01) ==
LOC: CT 14:02
PROVIDERS: PCP Family Medicine; Visit Provider Urology
DX: R31.0 Gross hematuria (principal)
CPT/HCPCS: 74178; Q9967

== ENCOUNTER → 2023-04-13 | Outpatient (CLI) | payer MEDICARE, OTHER, SELFPAY ==
[2023-04-13 13:47] LABS: PSA,Total- Diagnostic 0.54 ng/mL (0.0-4.0)
== END | disposition home or self-care (01) ==
LOC: LAB 12:37
PROVIDERS: PCP Family Medicine; Referring Provider Urology; Visit Provider Urology
DX: C61 Malignant neoplasm of prostate (principal)
CPT/HCPCS: 36415; 84153

== ENCOUNTER → 2023-05-07 | Outpatient (CLI) | payer MEDICARE, OTHER, SELFPAY ==
--- OUTSIDE RECORDS SUMMARY | 2023-05-07 12:27 | XMS RPT_ITS | CCD ---
Author Name Unknown Address [id number] [place] [address] Organization [facility] Care Team Providers Care Computer Science Intern Name Role Phone LIZBET PRIETOONY RAMAN Unavailable Unavailab ALIREZA Garner Unavailable Unavailable Unavailable Primary Care Provider UnavailMAGDY Krishna MD Admitting Unavailable MAGDY COOPER MD Primary Care Unavailable MAGDY COOPER MD Attending Unavailable ALIREZA DOTSON Consulting Unavailable ALIREZA DOTSON Referring Unavailable PROVIDER, UNKNOWN Consulting Unavailable PROVIDER, UNKNOWN Consulting Unavailable PROVIDER, UNKNOWN Consulting Unavailable JORGE MARTIN MD Admitting Unavailable JORGE MARTIN MD Primary Care Unavailable JORGE MARTIN MD Attending Unavailable ALIREZA DOTSON Consulting Unavailable PROVIDER, UNKNOWN Consulting Unavailable PROVIDER, UNKNOWN Consulting Unavailable PROVIDER, UNKNOWN Consulting Unavailable Alireza Dotson MD Unavailable Scotty FOX, Dr. Lokesh Simmons Unavailable Dr. Abundio Chin MD Unavailable Dr. Ash Astorga MD Unavailable [phone] [facility]. [facility]available [phone] Dr. Suresh Vargas MD Unavailable [facility], . Unavailable [facility] Unavailable AYDE TORRES Unavailable [facility] Unavailable Alberto VERA, Becka Unavailable Unavailable Sejal Diaz LPN Unavailable Unavailable Nithin BERNARDO, Ivette Viramontes Unavailable Unavailable Basim, Tamica C Unavailable Unavailable Jassi ENVELOPE CUTTER, Jackie Unavailable Unavailable CONTROL CHEMIST-C, Carlito Filomena Unavailable Praveen RN, Virginie Zuniga Unavailable Unavaila ble Gabe ENVELOPE CUTTER, Johnson Unavailable Unavailable Lynn RN, Betina Wright Unavailable Unavailable Kalin MADSENC, Stephanie J Unavailable [phone] Katherin HAULAGE BOSS, Rosalia Unavailable Unavailable Richert ENVELOPE CUTTER, Kristyn L Unavailable Unavailab le Leanna ENVELOPE CUTTER, Shilpa M Unavailable Unavailab le [place] ENVELOPE CUTTER, Luisa Rouse Unavailable Unavailab le Vanessa MA, Jackie Unavailable Unavailable Vess ENVELOPE CUTTER, Nelilye L Unavailable Unavailable Wengerd ENVELOPE CUTTER, Di Unavailable Unavailabl e Kentrell ENVELOPE CUTTER, Earlene N Unavailable Unavaila ble Zaugg ENVELOPE CUTTER, Patty Unavailable Unavailable Unavailable Unavailable Allergies Allergy Classification Reported Allergen(s) Allergy Type Date of Onset Reaction(s) Facility (2 sources) Ragweed [facility] Medications Current Medications Medication Drug Class(es) Dates Sig (Normalized) Sig (Original) Acetaminophen / Chlorpheniramine (1 source) Histamine-1 Receptor Antagonist take 2 tablets by mouth every four to six hours as needed ACETAMINOPHEN/C HLORPHENIRAMINE (CORICIDIN HBP COLD AND FLU ORAL) Take 2 tablets by mouth every 4 to 6 hours as needed (cold). Active amLODIPine 10 mg oral tablet (7 sources) Dihydropyridine [employer] Douglas Start: 01-30-2023 amLODIPine 10 mg tablet ; 1 (one) Tablet daily for 90 days Quantity: 90 {Tablet} Refills: 1 Ordered: 30-Jan-2023 MD Alireza Dotson Start: 30-Jan-2023 Comments: Mail order. Completed/Discontinued Medications Medication Drug Class(es) Dates Sig (Normalized) Sig (Original) [id number] 200 actuat albuterol 0.09 mg/actuat metered dose inhaler (2 sources) beta2-Adrenergic Agonist Start: 02-21-2016 End: 04-13-2017 take 2 puff(s) by inhalation every six hours as needed for cough ProAir HFA 108 (90 Base) MCG/ACT Inhalation Aerosol Solution ; 2 (two) puffs puffs q 6hrs prn SOB, cough for 0 days Quantity: 1 {Inhaler} Refills: 0 Ordered: 13-Apr-2017 TOVA Diaz Start: 21-Feb-2016 End: 13-Apr-2017 Status: Inactive amoxicillin 875 mg / clavulanate 125 mg oral tablet (2 sources) Penicillin-class Antibacterial Start: 05-10-2010 End: 05-20-2010 take 1 tablet by mouth twice daily at mealtime AUGMENTIN, 875-125MG (Oral Tablet) ; 1 Tab two times daily for 10 days Quantity: 20 {Tab} Refills: 0 Ordered: 10-Jun-2010 MD Alireza Dotson Start: 10-May-2010 End: 20-May-2010 Status: Inactive Comments: Take with food Problems Active Problems Problem Classification Problem Date Documented Date Episodic/Chronic Acute bronchitis (6 sources) Acute bronchitis; Translations: [Acute bronchitis, unspecified] 04-13-2021 Episodic Administrative/social admission (12 sources) Repeated prescription; Translations: [Encounter for issue of repeat prescription] 04-13-2021 Episodic Alcohol-related disorders (3 sources) Alcohol abuse with intoxication, unspecified; Translations: [Alcohol intoxication] Onset: 11-29-2016 Chronic Cancer of prostate (20 sources) Malignant tumor of prostate; Translations: [Malignant neoplasm of prostate] 11-15-2022 Chronic Disorders of lipid metabolism (20 sources) Hyperlipidemia; Translations: [Hyperlipidemia, unspecified] 11-15-2022 Chronic Essential hypertension (20 sources) Benign hypertension; Translations: [Essential (primary) hypertension] 11-15-2022 Chronic Fracture of lower limb (4 sources) Closed trimalleolar fracture; Translations: [Displaced trimalleolar fracture of unspecified lower leg, initial encounter for closed fracture] 11-02-2021 Episodic Hyperplasia of prostate (20 sources) Benign prostatic hyperplasia; Translations: [Benign prostatic hyperplasia without lower urinary tract symptoms] 04-13-2021 Chronic Immunizations and screening for infectious disease (20 sources) Need for prophylactic vaccination and inoculation against influenza; Translations: [Needs influenza immunization] 04-13-2021 Episodic Malaise and fatigue (2 sources) Fatigue; Translations: [Other fatigue] 10-19-2020 Episodic Neoplasms of unspecified nature or uncertain behavior (2 sources) Bladder polyp; 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] 10-18-2018 Episodic Other aftercare (6 sources) Long-term (current) use of other medications 04-13-2021 Episodic Other and ill-defined cerebrovascular disease (10 sources) Small vessel cerebrovascular disease; Translations: [Cerebrovascular disease, unspecified] 11-15-2022 Chronic Other and unspecified benign neoplasm (12 sources) Polyp of colon; Translations: [Polyp of colon] 11-15-2022 Episodic Past or Other Problems Problem Classification Problem Date Documented Date Episodic/Chronic Fluid and electrolyte disorders (6 sources) Hypo-osmolality and hyponatremia; Translations: [Hypokalemia] Onset: 11-29-2016 Episodic Headache; including migraine (2 sources) Headache; including migraine 03-09-2010 Unclassified (2 sources) MCR Well Adult - In general the patient feels well with no complaints, has good energy level and is sleeping poorly. The patient has a balanced diet and takes supplemental vitamins. The patient does not exercise and sleeps 8 hours per night. The patient denies having trouble with bathing, dressing/grooming, toileting and ambulating (with a cane), but admits to having trouble with preparing meals. The patient denies having trouble with grocery shopping, driving and use of telephone, but admits to having trouble with housework, laundry, preparing/taking medications or finances. Note for MCR Well Adult : Pt has blood in his urine 04/22/2022 but was clear in a couple hour but had ct done and had small kidney stone. 05-17-2022 Unclassified (4 sources) MCR Well Adult - In general the patient feels well with minor complaints, has good energy level and is sleeping well. The patient has a balanced diet and takes supplemental vitamins. The patient does not exercise and sleeps 8 hours per night. The patient denies having trouble with bathing, dressing/grooming, toileting, preparing meals and ambulating. The patient denies having trouble with grocery shopping, use of telephone and finances, but admits to having trouble with driving, housework, laundry or preparing/taking medications. The patient has a Healthcare Power of Thermoforming Machine Operator and a Living Will. 04-13-2021 Unclassified (2 sources) MCR Well Adult - In general the patient feels well with no complaints, has good energy level and is sleeping well. The patient has a balanced diet and takes supplemental vitamins. The patient exercises 3 - 4 times per week (physical therapy) and sleeps 9 hours per night. The patient denies having trouble with bathing, dressing/grooming, toileting, preparing meals and ambulating. The patient denies having trouble with grocery shopping, driving, use of telephone, housework, laundry, preparing/taking medications and finances. The patient has a Healthcare Power of Thermoforming Machine Operator and a Living Will. 04-16-2019 Unclassified (2 sources) MCR Well Adult - In general the patient feels well with minor complaints (would like to have insect bite looked at behind the right knee), has good energy level and is sleeping well. The patient has a balanced diet and takes supplemental vitamins. The patient does not exercise and sleeps 8 hours per night. The patient denies having trouble with bathing, dressing/grooming, toileting, preparing meals and ambulating. The patient denies having trouble with grocery shopping, driving, use of telephone, housework, laundry, preparing/taking medications and finances. The patient has a Healthcare Power of Thermoforming Machine Operator and a Living Will. Note for [facility] Well Adult : reviewed by TOBY 10-05-2017 Unclassified (2 sources) Follow up consultation - The patient is here to follow-up after hospitalization (Pt diagnosed with Syncope) on : (Admitted 04/17/17 and discharged 04/18/2017.). There is a family history of cardiovascular disease and other condition(s) (CVA and HTN.). Past medical history includes hypertension. Note for Consultation follow-up : Pt states that he is actually feeling well. Has no further episodes of syncope or leg weakness. Has been keeping records of BP's. Had testing done and ready to review/discuss.He had got up to go the BR at night , got lihtheaded and passed out after using rest room. BP was 108/69 when he regained consciousness. 05-04-2017 Unclassified (2 sources) [ADDITIONAL REASON] Transition into care - The patient is transitioning into care from a hospital and a summary of care was reviewed. 05-04-2017 Unclassified (2 sources) F/U - Pt here today to discuss CXR results from last week. Was seen by Carlito 02/17/16 for bronchitis and was put on Levaquin which pt is still on. He also sent pt for CXR which showed finding consistent with COPD. Was told to f/u here to discuss results with PCP. Pt no longer running temperature. he had temps ranging form 104.0 to 99.7 last week. PO 97% this morning. Continues to have moist cough and will expectorate whitish to yellow sputum. Not currently on any inhalers. No fever in office today. He quit tobacco in remote past. 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 02-21-2016 Unclassified (2 sources) Cold Symptoms - Symptoms include runny nose, productive cough and fever (104 just in beginning). The onset was gradual 3 week(s) ago. The symptoms occur constantly. The patient describes this as moderate in severity and unchanged. Current treatment includes antibiotics (given by ENT. unsure what the name was. he has three days left of this.). Risk factors do not include child in daycare or smoking. Note for Upper respiratory infection : Most symptoms are subsiding currently besides cough, which is persistent/loose and decreasing sleep quality. 2016 Unclassified (2 sources) Cyst Removal - Cyst on mid back for 6 months. Occasionally painful. Here for removal. see previous note 2014 Unclassified (2 sources) facial injuries - Pt is here complaining of falling on the sidewalk while climbing a hill on Sunday evening. Says his legs just gave out on him resulting in a fall. Tried to catch himself with his hands but ended up hitting his face. Says his nose was broke but he pulled it out and made it straight. Has a history of a broken nose in the past which is how he knew what to do. Denies trouble breathing through his nose although it does feel numb. He has bruising around his eyes. One eye started to swell yesterday and then they were both swollen this morning. The swelling seems to be worse at night. No vision changes. No mental changes or dizziness. Admits to a slight frontal headache over area where he was injured. Hasn't taken any medications for pain. No loss of consciousness. No fever.Does take a baby aspirin each evening. Says he had another episode a few months ago where is legs gave out and he fell. 08-22-2012 Unclassified (2 sources) Cold Symptoms - Symptoms include runny nose, purulent discharge (goes down throat), sore throat, scratchy throat, hoarseness, productive cough, general malaise, headache and facial pain. The onset was sudden 4 day(s) ago (started when red andrea started blooming). The symptoms occur constantly. The patient describes this as severe and worsening. Current treatment includes non-prescription cold medication (Coricedin). Medical History Includes recurrent sinusitis. 08-18-2010 Unclassified (2 sources) Sebaceous cyst - Sebaceous cyst removal. Mid back. 07-19-2010 Unclassified (2 sources) Cyst reoval - Pt here to have cyst removed from lower back. Took augmentin for 10 days. Pt states there were 2 cysts and 1 is closed and the other just slightly open. No drainage noted but he saqys the one drains occassionally but not very much or often. 06-10-2010 Unclassified (2 sources) Draining cyst on lower back - Draining cyst for the past 2 days. Painful. Had the cyst for an extended period of time, first time to drain. 05-10-2010 Results Test Name Value Interpretation Reference Range Facil ity Vital Signs Date Time Vital Sign Value Performing Clinician Faci lity 11-15-2022 10:48-0400 Body weight 103.87 kg Alireza Dotson MD Work Phone: [employer] [employer]. 11-15-2022 10:48-0400 Diastolic blood pressure 82 mm[Hg] Alireza Dotson MD Work Phone: [employer]; [facility] Encounters Encounter Date Encounter Type Care Provider Facility Start: 11-15-2022 End: 11-15-2022 Office outpatient visit 15 minutes Alireza Dotson MD Work Phone: [facility] Start: 05-17-2022 End: 05-17-2022 Patient encounter procedure Alireza Dotson MD Work Phone: [employer] Start: 05-17-2022 End: 05-17-2022 Periodic preventive med est patient 65yrs& older Alireza Dotson MD Work Phone: [facility] Start: 05-10-2022 End: 05-11-2022 Orders Alireza Dotson MD Work Phone: [employer]. Start: 04-03-2022 End: 04-03-2022 Orders Alireza Dotson MD Work Phone: [employer]. Start: 11-02-2021 End: 11-02-2021 Orders Alireza Dotson MD Work Phone: [facility] Start: 11-02-2021 End: 11-02-2021 Office outpatient visit 25 minutes Alireza Dotson MD Work Phone: [facility] Start: 07-29-2021 ambulatory JORGE FOX [facility] Start: 07-29-2021 Encounter for other preprocedural examination JOREG FOX [facility] Start: 07-29-2021 End: 07-29-2021 Evaluation and management of inpatient MAGDY FOX [facility] Start: 04-13-2021 End: 04-13-2021 Patient encounter procedure Alireza Dotson MD Work Phone: [employer]; [employer]. Start: 04-13-2021 End: 04-13-2021 Periodic preventive med est patient 65yrs& older Alireza Dotson MD Work Phone: [employer]. Start: 04-01-2021 End: 04-04-2021 Orders Alireza Dotson MD Work Phone: [facility] Start: 10-19-2020 End: 10-19-2020 Office outpatient visit 25 minutes Alireza Dotson MD Work Phone: [facility] Start: 04-20-2020 End: 04-20-2020 Patient encounter procedure Alireza Dotson MD Work Phone: [employer]; [facility] Start: 04-20-2020 End: 04-20-2020 Periodic preventive med est patient 65yrs& older Alireza Dotson MD Work Phone: [employer]. Start: 04-13-2020 End: 04-14-2020 Orders Alireza Dotson MD Work Phone: [employer]. Start: 02-09-2020 End: 02-09-2020 Orders Alireza Dotson MD Work Phone: [employer]. Start: 09-29-2019 End: 09-29-2019 Office outpatient visit 15 minutes Alireza Dotson MD Work Phone: [employer]. Start: 04-16-2019 End: 04-16-2019 Patient encounter procedure Alireza Dotson MD Work Phone: [employer] [employer]. Start: 04-16-2019 End: 04-16-2019 Periodic preventive med est patient 65yrs& older Alireza Dotson MD Work Phone: [employer]. Start: 04-04-2019 End: 04-07-2019 Orders Alireza Dotson MD Work Phone: [employer]. Start: 01-15-2019 End: 01-15-2019 Telephone follow-up Alireza Dotson MD Work Phone: [facility] Start: 10-18-2018 End: 10-18-2018 Office outpatient visit 25 minutes Alireza Dotson MD Work Phone: [employer]. Start: 04-17-2018 End: 04-17-2018 Office outpatient visit 15 minutes Alireza Dotson MD Work Phone: [employer]. Start: 10-05-2017 End: 10-05-2017 Patient encounter procedure Alireza Dotson MD Work Phone: [employer] [employer]. Start: 10-05-2017 End: 10-05-2017 Periodic preventive med est patient 65yrs& older Alireza Dotson MD Work Phone: [employer]. Start: 09-21-2017 End: 09-21-2017 Orders Alireza Dotson MD Work Phone: [facility] Start: 05-04-2017 End: 05-04-2017 Orders Alireza Dotson MD Work Phone: [facility] Start: 05-04-2017 End: 05-04-2017 Office outpatient visit 15 minutes Alireza Dotson MD Work Phone: [facility] Start: 04-13-2017 End: 04-13-2017 Office outpatient visit 15 minutes Alireza Dotson MD Work Phone: [facility] Start: 04-10-2017 End: 04-10-2017 Historical Summary Ailreza Dotson MD Work Phone: [facility] Start: 04-09-2017 End: 04-10-2017 Orders Alireza Dotson MD Work Phone: [facility] Start: 04-04-2017 End: 04-04-2017 Orders Alireza Dotson MD Work Phone: [facility] Start: 04-03-2017 End: 04-03-2017 Orders Alireza Dotson MD Work Phone: [facility] Start: 11-29-2016 End: 11-30-2016 Emergency department patient visit [facility] Start: 11-29-2016 End: 11-29-2016 Emergency department patient visit [facility] Work Phone: [facility] Emergency Department Procedures Date Procedure Procedure Detail Performing Clinician Start: 05-17-2022 End: 05-17-2022 Adv care pln/ no alt dcsn mkr docd or refusal Alireza Dotson MD Work Phone: Start: 05-17-2022 End: 05-17-2022 Depression screening Alireza Dotson MD Work Phone: Start: 05-17-2022 End: 05-17-2022 Falls risk assessment documented Alireza Dotson MD Work Phone: Start: 05-17-2022 End: 05-17-2022 PPPS, subseq visit Alireza Dotson MD Work Phone: Start: 05-17-2022 End: 05-17-2022 Pt falls assess docd w/o fall/injury past year Alireza Dotson MD Work Phone: Start: 05-17-2022 End: 05-17-2022 Scr dep neg, no plan reqd Alireza Dotson MD Work Phone: Start: 05-10-2022 End: 05-10-2022 Lab findings surveillance Shilpa Magana ach ENVELOPE CUTTER Plan of Treatment Date Care Activity Detail Author Start: 05-15-2023 Patient encounter procedure Medical; PHYSICAL - [facility] Start: 15-May-2023 10:10 MD Alireza Dotson Appointment Request [employer] [facility] Start: 05-08-2023 Nursing evaluation o f patient and report Medical; [facility] Start: 08-May-2023 10:00 NURSE, FLOAT Appointment Request [employer] [facility] Immunizations Immunization Date Immunization Notes Care Provider [facility] 03-17-2023 zoster vaccine recombinant Alireza Dotson MD Work Phone: [employer] [employer] [facility]. 03-02-2023 tetanus toxoid, redu angelika diphtheria toxoid, and acellular pertussis vaccine, adsorbed Alireza Dotson MD Work Phone: [employer] [employer] [facility]. 02-10-2023 influenza, injectabl e, quadrivalent, preservative free Alireza Dotson MD Work Phone: [employer] [employer]. 01-11-2023 zoster vaccine recombinant Alireza Dotson MD Work Phone: [employer]; [employer] [facility]. 04-27-2021 COVID-Moderna (100 MCG/0.5 ML) Alireza Dotson MD Work Phone: [employer]. 04-01-2021 influenza, injectabl e, quadrivalent, contains preservative Alireza Dotson MD Work Phone: [employer]; [facility] Payers Date Payer Category Payer Medicare [id number] 1945 Unknown [id number] 1945 Unknown [id number] Medicare [id number] Unknown [id number] Unknown Social History Date Type Detail Facility Start: 11-29-2016 Tobacco smoking stat [facility] Former smoker [facility] Work Phone: End: 11-29-1974 History of tobacco use Current smoker [facility] Work Phone: Sex Assigned At Not on file [facility] Work Phone: Alcohol Use Alcohol Use [employer]; [facility] Current Work/Study Status: Current Work/Study Status: ; Retired. [employer]; [employer] Tobacco Use: Tobacco Use: ; F ormer smoker. [employer]; [employer]. Male [employer] Work Phone: Retired [employer]; [employer] Work Phone: Summary Purpose Family History Cancer Status:Active Comments:Father. Cerebrovascular Accident Status:Active Comment s:Maternal Grandmother. Mother. Coronary Artery Disease Status:Active Comments :Family Members In General. Diabetes Mellitus Type II Status:Active Commen ts:Negative Family History Of. Hypertension Status:Active Comments:Family Members In General. Mother. Cancer Status:Active Comments:Father. Cerebrovascular Accident Status:Active Comment s:Maternal Grandmother. Mother. Coronary Artery Disease Status:Active Comments :Family Members In General. Diabetes Mellitus Type II Status:Active Commen ts:Negative Family History Of. Hypertension Status:Active Comments:Family Members In General. Mother. Advance Directives Living Will - Effective on . Expiration date unspecified. Scanned Document is available upon request. Effective:30-May-2022 Living Will - Effective on . Expiration date unspecified. Scanned Document is available upon request. Effective:30-May-2022 Discharge Instructions * Tosha Prieto, DO - 11/29/2016 Until you follow up with Dr. Dotson start adding some salt to your diet. Both your sodium and your potassium were low today Hypokalemia: Care Instructions Your Care Instructions Hypokalemia (say xm-as-ryo-JEROD-yves-uh ) is a low level of potassium. The heart, muscles, kidneys, and nervous system all need potassium to work well. This problem has many different causes. Kidney problems, diet, and medicines like diuretics and laxatives can cause it. So can vomiting or diarrhea. In some cases, cancer is the cause. Your doctor may do tests to find the cause of your low potassium levels. You may need medicines to bring your potassium levels back to normal. You may also need regular blood tests to check your potassium. If you have very low potassium, you may need intravenous (IV) medicines. You also may need tests tocheck the electrical activity of your heart. Heart problems caused by low potassium levels can be very serious. Follow-up care is a conway part of your treatment and safety. Be sure to make and go to all appointments, and call your doctor if you are having problems. It's also a good idea to know your test resultsand keep a list of the medicines you take. How can you care for yourself at home? If your doctor recommends it, eat foods that have a lot of potassium. These include fresh fruits, juices, and vegetables. They also include nuts, beans, and milk. Be safe with medicines. If your doctor prescribes medicines or potassium supplements, take them exactly as directed. Call your doctor if you have any problems with your medicines. Get your potassium levels tested as often as your doctor tells you. When should you call for help? Call 911 anytime you think you may need emergency care. For example, call if: You feel like your heart is missing beats. Heart problems caused by low potassium can cause . You passed out (lost consciousness). You have a seizure. Call your doctor now or seek immediate medical care if: You feel weak or unusually tired. You have severe arm or leg cramps. You have tingling or numbness. You feel sick to your stomach, or you vomit. You have belly cramps. You feel bloated or constipated. You have to urinate a lot. You feel very thirsty most of the time. You are dizzy or lightheaded, or you feel like you may faint. You feel depressed, or you lose touch with reality. Watch closely for changes in your health, and be sure to contact your doctor if: You do not get better as expected. Where can you learn more? Log into your personal health record on [email or web address] and enter G358 in the Education box to learn more about Hypokalemia: Care Instructions. Current as of: November 25, 2015 Content Version: 11.2 2278-7321 [employer]. Care instructions adapted under license by your healthcare professional. If you have questions about a medical condition or this instruction, always ask your healthcare professional. [employer] disclaims any warranty or liability for your use of this information. Hyponatremia: Care Instructions Your Care Instructions Hyponatremia (say de-[id number]-[id number]-TREE-[id number]-uh ) means that you don't have enough sodium in your blood. It can cause nausea, vomiting, and headaches. Or you may not feel hungry. In serious cases, it can cause seizures, a coma, or even . Hyponatremia is not a disease. It is a problem caused by something else, such as medicines or exercising for a long time in hot weather. You can get hyponatremia if you lose a lot of fluids and then you drink a lot of water or other liquids that don't have much sodium. You can also get it if you have kidney, liver, heart, or other health problems. Treatment is focused on getting your sodium levels back to normal. Follow-up care is a con[place] part of your treatment and safety. Be sure to make and go to all appointments, and call your doctor if you are having problems. It's also a good idea to know your test resultsand keep a list of the medicines you take. How can you care for yourself at home? If your doctor recommends it, drink fluids that have sodium. Sports drinks are a good choice. Or you can eat salty foods. If your doctor recommends it, limit the amount of water you drink. And limit fluids that are mostlywater. These include tea, coffee, and juice. Take your medicines exactly as prescribed. Call your doctor if you have any problems with your medicine. Get your sodium levels tested when your doctor tells you to. When should you call for help? Call 911 anytime you think you may need emergency care. For example, call if: You have a seizure. You passed out (lost consciousness). Call your doctor now or seek immediate medical care if: You are confused or it is hard to focus. You have little or no appetite. You feel sick to your stomach or you vomit. You have a headache. You have mood changes. You feel more tired than usual. Watch closely for changes in your health, and be sure to contact your doctor if: You do not get better as expected. Where can you learn more? Log into your personal health record on [email or web address] and enter U075 in the Education box to learn more about Hyponatremia: Care Instructions. Current as of: February 11, 2016 Content Version: 11.2 5640-5614 [employer]. Care instructions adapted under license by your healthcare professional. If you have questions about a medical condition or this instruction, always ask your healthcare professional. [employer] disclaims any warranty or liability for your use of this information. Learning About Alcohol Misuse What is alcohol misuse? Alcohol misuse means drinking so much that it causes problems for you or others. Early problems with alcohol can start at home. You may argue with loved ones about how much you're drinking. Your job may be affected because of drinking. You may drink when it's dangerous or illegal, such as when you drive. Drinking too much for a long time can lead to health conditions like high blood pressure and liver problems. What are the symptoms? Symptoms of alcohol misuse may include: Drinking much more than you planned. Drinking even though it's causing problems for you or others. Putting yourself in situations where you might get hurt. Wanting to cut down or stop drinking, but not being able to. Feeling guilty about how much you're drinking. How is alcohol misuse treated? Getting help for problems with alcohol is up to you. But you don't have to do it alone. There are many people and kinds of treatments to help with alcohol problems. Talking to your doctor is the first step. When you get a doctor's help, treatment for alcohol problems can be safer and quicker. Treatment options can include: Treatment programs. Examples are group therapy, one or more types of counseling, and alcohol education. Medicines. A doctor or counselor can help you know what kinds of medicines might help with cravings. Free social support groups. These groups include AA (Alcoholics Anonymous) and SMART (Self-Management and Recovery Training). Your doctor can help you decide which type of program is best for you. Follow-up care is a [place] part of your treatment and safety. Be sure to make and go to all appointments, and call your doctor if you are having problems. It's also a good idea to know your test resultsand keep a list of the medicines you take. Where can you learn more? Log into your personal health record on [email or web address] and enter H758 in the Education box to learn more about Learning About Alcohol Misuse. Current as of: May 02, 2016 Content Version: 11.2 0527-0608 [employer]. Care instructions adapted under license by your healthcare professional. If you have questions about a medical condition or this instruction, always ask your healthcare professional. [employer] disclaims any warranty or liability for your use of this information. in this encounter Assessments Diagnosis Hyponatremia - Primary Hyposmolality and/or hyponatremia Hypokalemia Hypopotassemia Alcohol intoxication, with u nspecified complication (HCC) Additional Source Comments (unrecognized sect ion and content) No Status Records FoundNo Status Records FoundNo Status Records Found INFORMATION SOURCE (unrecogn ized section and content) DATE CREATED AUTHOR AUTHOR'S ORGANIZ ATION 09/01/2021 [facility] DATE CREATED AUTHOR AUTHOR'S ORGANIZ ATION 05/11/2022 [facility] Reason for Visit (unrecogniz ed section and content) FOR RECORDS PERTAINING TO PATIENTS WHO ARE OR HAVE BEEN ENROLLED IN A CHEMICAL DEPENDENCY/SUBSTANCEABUSE PROGRAM, SOME INFORMATION MAY BE OMITTED. This clinical summary was aggregated from multiple sources. Caution should be exercised in using it in the provision of clinical care. This summary normalizes information from multiple sources, and as a consequence, information in this document may materially change the coding, format and clinical context of patient data. In addition, data may be omitted in some cases. CLINICAL DECISIONS SHOULD BE BASED ON THE PRIMARY CLINICAL RECORDS. [facility] [employer] [facility]. provides no warranty or guarantee of the accuracy or completeness of information in this document.
--- NOTE | 2023-05-07 12:30 | MRI_ITS ---
EXAM: MR LUMBAR SPINE WITHOUT INTRAVENOUS CONTRAST CLINICAL INDICATION: pain TECHNIQUE: Multiplanar and multisequence MR images of the lumbar spine without intravenous contrast. COMPARISON: CT abdomen pelvis 05/11/2022 FINDINGS: VERTEBRAE: Alignment of lumbar vertebral bodies is normal. No bone marrow edema. SPINAL CORD: Normal. Normal position and signal intensity of the conus medullaris. SOFT TISSUES: No paraspinal soft tissue abnormality. DISCS/SPINAL CANAL/NEURAL FORAMINA: L1-L2: No significant disc space narrowing. Mild disc bulging. No significant narrowing of the spinal canal or neural foramina. L2-L3: No significant disc space narrowing. No disc protrusion. Ligamentous hypertrophy and facet arthropathy present. No spinal or neural foraminal stenosis. L3-L4: No disc space narrowing. No disc protrusion. Mild facet arthropathy and ligamentous hypertrophy. No spinal or neural foraminal stenosis. L4-L5: Moderate disc space narrowing. No disc protrusion. No significant compression of the spinal canal or neural foramina. L5-S1: Left central disc protrusion without significant compression of the thecal sac or neural foramina. MRI/Spine Lumbar (Routine) IMPRESSION: Disc changes as described without significant spinal or neural foraminal stenosis. Electronically Signed: Clinton Early MD at 16:51 EST ,
--- NOTE | 2023-05-07 13:15 | MRI_ITS ---
EXAM: MR CERVICAL SPINE WITHOUT INTRAVENOUS CONTRAST CLINICAL INDICATION: pain TECHNIQUE: Multiplanar and multisequence MR images of the cervical spine without intravenous contrast were performed. COMPARISON: No relevant prior studies available. FINDINGS: VERTEBRAE: Normal. Normal vertebral bodies and posterior elements. Normal alignment. Normal craniocervical junction and cervicothoracic junction. No spondylolisthesis. There is preservation of the normal cervical lordosis. SPINAL CORD: Unremarkable in signal and morphology. SOFT TISSUES: Normal. No prevertebral soft tissue swelling. LYMPH NODES: Normal. There is no cervical adenopathy. DISCS/SPINAL CANAL/NEURAL FORAMINA: C2-C3: Normal. Normal disc height and morphology. Normal spinal canal. Normal neuroforamina. C3-C4: Normal. Normal disc height and morphology. Normal spinal canal. Normal neuroforamina. C4-C5: Normal. Normal disc height and morphology. Normal spinal canal. Normal neuroforamina. C5-C6: Moderate disc space narrowing and prominent vertebral body osteophytosis. Prominent central disc protrusion and posterior ligamentous redundancy results in mild spinal stenosis. Prominent bilateral neural foraminal narrowing related to uncinate joint hypertrophy. C6-C7: Mild disc space narrowing and prominent anterior vertebral body osteophytosis. No disc herniation. Normal spinal canal. Normal neuroforamina. C7-T1: Normal. Normal disc height and morphology. Normal spinal canal. Normal neuroforamina. MRI/Spine Cervical (Routine) IMPRESSION: C5-6 central disc protrusion and posterior ligamentous redundancy resulting in mild narrowing of the spinal canal. Bilateral C5-6 neural foraminal narrowing related to uncinate joint hypertrophy. Electronically Signed: Clinton Early MD at 16:59 EST ,
== END | disposition home or self-care (01) ==
LOC: MRI 11:59
PROVIDERS: PCP Family Medicine; Referring Provider Orthopaedic Surgery; Visit Provider Orthopaedic Surgery
DX: M54.30 Sciatica, unspecified side (principal); M54.2 Cervicalgia
CPT/HCPCS: 72141; 72148

== ENCOUNTER → 2024-04-11 | Outpatient (CLI) | payer MEDICARE, OTHER, SELFPAY ==
--- NOTE | 2024-04-11 17:15 | MRI_ITS ---
STUDY: MRI THORACIC SPINE WithoutCONTRAST REASON FOR EXAM: Male, 79 years old. pain TECHNIQUE: MRI examination of the thoracic spine obtained with a standard protocol including multiplanar multiecho noncontrastimaging. Contrast: No contrast administered. COMPARISON: MRI examination lumbar spine on 05/07/2023, plain film examination lumbar spine on 03/11/2024. FINDINGS: VERTEBRAL BODIES: 1. Vertebral body height and alignment are maintained throughout the thoracic spine, heterogeneous marrow signal is noted. There has been interval development of compression deformity at L1 with heterogeneous though mildly edematous marrow signal. No subluxation. There does appear to be of mild posterior retropulsion of the posterior aspect of L1. This has developed since the prior MRI of 05/07/2023. 2. There is no substantial scoliosis. 3. Benign appearing peripelvic RIGHT renal cyst. INTERVERTEBRAL DISC SPACES: T1-2, T2-3, T3-4, T4-5, T5-6, T6-7, T7-8, T8-9, T9-10, T10-11, T11-12: 1. Normal endplates. Multilevel disc desiccation. No evidence of acute disc herniation or acutely acquired canal stenosis. Marginal osteophyte formation is noted. 2. Incidental note of mild retropulsion of posterior aspect of the L1 vertebral body without evidence of alisson canal stenosis. SPINAL CORD: 1. Normal visualized thoracic cord. Normal conus medullaris that terminates at L1 . PARASPINOUS SOFT TISSUES: The soft tissue structures are unremarkable. MRI/Spine Thoracic (Routine) IMPRESSION: 1. Multilevel disc desiccation marginal osteophyte formation noted without evidence disc herniation or acutely acquired canal stenosis. 2. Interval development of deformity of the L1 vertebral body consistent with a subacute to chronic compression fracture with mild retropulsion of posterior element of L1 without evidence alisson canal stenosis. This has developed since the most recent MRI of the lumbar spine dated 05/07/2023. 3. Normal appearance of visualized spinal cord and conus. 4. Benign Bosniak type I peripelvic cyst in the RIGHT kidney. No follow-up acquired by consensus guidelines. Incidental Findings Reference Guidance And Recommendations: Renal cyst: Bosniak class I and II cysts are considered benign, and require no additional imaging follow-up based on consensus guidelines (JACR 2010; 7:753-773). Ovarian cyst: Pulmonary nodule: IVC follow-up: Electronically Signed: Chinmay Pride MD at 17:44 EST ,
== END | disposition home or self-care (01) ==
PROVIDERS: PCP Family Medicine; Referring Provider Orthopaedic Surgery Orthopaedic Surgery of the Spine; Visit Provider Orthopaedic Surgery Orthopaedic Surgery of the Spine
DX: M47.14 Other spondylosis with myelopathy, thoracic region (principal)
CPT/HCPCS: 72146

== ENCOUNTER → 2024-04-24 | Outpatient (CLI) | payer MEDICARE, OTHER, SELFPAY ==
[2024-04-24 16:28] LABS: PSA,Total- Diagnostic 0.19 ng/mL (0.0-4.0)
== END | disposition home or self-care (01) ==
LOC: LAB 14:58
PROVIDERS: PCP Family Medicine; Referring Provider Urology; Visit Provider Urology
DX: C61 Malignant neoplasm of prostate (principal)
CPT/HCPCS: 36415; 84153

== ENCOUNTER → 2024-10-21 | Outpatient (CLI) | payer MEDICARE, OTHER, SELFPAY ==
--- OUTSIDE RECORDS SUMMARY | 2024-10-21 07:00 | XMS RPT_ITS | CCD ---
Author Organization [facility] CliniSypr Care Team Providers Care Minilab Operator Name Role Phone RIGOBERTO PRIETO Unavailable Unavailab ALIREZA Garner Unavailable Unavailable Unavailable Primary Care Provider UnavailDr. Alireza Kate Primary Care Provider Dr. Alireza Gutierrez Referring Provider Dr. Gustavo Miranda Attending Provider [phone] Alireza Gutierrez MD Unavailable Scotty FOX, Dr. Lokesh Simmons Unavailable Elsy FOX, Dr. Abundio Perkins Unavailable Gauri FOX, Dr. Ash Simmons Unavailable [phone] Sweetie FOX, Dr. Parham ([facility]) Unavailable Alicia FOX, Dr. Prince Unavailable [facility], . Unavailable [facility] Unavailable AYDE TORRES Unavailable [facility] Unavailable [phone] Alberto VERA, Becka Unavailable Unavailable Alisson MORNING SHOW HOST, Sejal E Unavailable Unavailable Nithin MORNING SHOW HOST, Ivette C Unavailable Unavailable Basim, Tamica C Unavailable Unavailable Jassi MORNING SHOW HOST, Jackie Unavailable Unavailable TUG CAPTAIN-C, Carlito Butt Unavailable Praveen VERA, Virginie Zuniga Unavailable Unavaila silva Bernal LPN, Johnson Unavailable Unavailable Lynn VERA, Betina Wright Unavailable Unavailable Kalin MADSENC, Stephanie Simmons Unavailable Katherin SECONDARY EDUCATION PROFESSOR, Rosalia Unavailable Unavailable Damaris MORNING SHOW HOST, Kristyn L Unavailable Unavailab melly Leanna MORNING SHOW HOST, Shilpa Brown Unavailable Unavailab melly Rosado LPN, Luisa Rouse Unavailable Unavailab melly Mendez MAJackie Unavailable Unavailable Vess MORNING SHOW HOST, Nelilye L Unavailable Unavailable Wengerd MORNING SHOW HOST, Di Unavailable Unavailabl e [place] MORNING SHOW HOST, Earlene N Unavailable Unavaila ble Zaugg MORNING SHOW HOST, Patyt Unavailable Unavailable Unavailable Unavailable Tigre Mile MURILLO Unavailable Unavailable ALIREZA GUTIERREZ Admitting Unavailable ALIREZA GUTIERREZ Primary Care Unavailable ALIREZA GUTIERREZ Consulting Unavailable ALIREZA GUTIERREZ Attending Unavailable PROVIDER, UNKNOWN Consulting Unavailable PROVIDER, UNKNOWN Consulting Unavailable PROVIDER, UNKNOWN Consulting Unavailable Basim KAM, Eric Hensley Unavailable Unavailable Unavailable [facility] Attending Unavailable Mauri FOX, Dr. Lay Primary Care Provider Mauri FOX, Dr. Lay Referring Provider Javed FOX, Dr. Price Attending Provider Alireza Gutierrez Primary Care Unavailable Albert Burt Attending Unavailable Alireza Gutierrez Referring Unavailable Alireza Gutierrez Referring Unavailable Hema Ureña Attending Unavailable Alireza Gutierrez Primary Care Unavailable Hema Ureña Attending Unavailable Hema Ureña Referring Unavailable Alireza Gutierrez Primary Care Unavailable Prasad Pitt Attending Unavailable Prasad Pitt Referring Unavailable Alireza Gutierrez Primary Care Unavailable Alireza Gutierrez Primary Care Unavailable Albert Burt Attending Unavailable Albert Burt Referring Unavailable Kike Morrison Attending Unavailable Alireza Gutierrez Primary Care Unavailable Alireza Gutierrez Primary Care Unavailable Hema Ureña Attending Unavailable Alireza Gutierrez Referring Unavailable Allergies Allergy Classification Reported Allergen(s) Allergy Type Date of Onset Reaction(s) Facility (20 sources) Ragweed [facility]. Medications Current Medications Medication Drug Class(es) Dates Sig (Normalized) Sig (Original) Acetaminophen / Chlorpheniramine (1 source) Histamine-1 Receptor Antagonist take 2 tablets by mouth every four to six hours as needed ACETAMINOPHEN/C HLORPHENIRAMINE (CORICIDIN HBP COLD AND FLU ORAL) Take 2 tablets by mouth every 4 to 6 hours as needed (cold). Active amLODIPine 10 mg oral tablet (20 sources) Dihydropyridine Calcium Channel Douglas Start: 10-03-2024 take 1 tablet by mouth once daily Amlodipine 10 mg tablet Active 10 mg PO daily October 03, 2024 12:00am Start: 07-23-2024 amLODIPine 10 mg tablet ; 1 (one) Tablet daily for 90 days Quantity: 90 {Tablet} Refills: 0 Ordered: 23-Jul-2024 MD Alireza Gutierrez Start: 23-Jul-2024 Comments: Mail order. Start: 04-24-2024 amLODIPine 10 mg tablet ; 1 (one) Tablet daily for 90 days Quantity: 90 {Tablet} Refills: 0 Ordered: 24-Apr-2024 MD Alireza Gutierrez Start: 24-Apr-2024 Comments: Mail order. Start: 01-25-2024 amLODIPine 10 mg tablet ; 1 (one) Tablet daily for 90 days Quantity: 90 {Tablet} Refills: 0 Ordered: 25-Jan-2024 NEGIN Stallworth Start: 25-Jan-2024 Comments: Mail order. Start: 07-30-2023 amLODIPine 10 mg tablet ; 1 (one) Tablet daily for 90 days Quantity: 90 {Tablet} Refills: 1 Ordered: 30-Jul-2023 MD Alireza Gutierrez Start: 30-Jul-2023 Comments: Mail order. Start: 01-30-2023 amLODIPine 10 mg tablet ; 1 (one) Tablet daily for 90 days Quantity: 90 {Tablet} Refills: 1 Ordered: 30-Jan-2023 MD Alireza Gutierrez Start: 30-Jan-2023 Comments: Mail order. Start: 06-05-2018 End: 10-03-2024 take 2 tablets by mouth at bedtime Amlodipine 5 MG tablet Discontinued 10 mg PO AT BEDTIME June 05, 2018 1:00am October 03, 2024 11:00am Start: 06-05-2018 take 10 mg by mouth at bedtime Amlodipine Active 10 MG PO AT BEDTIME June 05, 2018 12:00am Start: 01-04-2016 End: 2016 take 1 tablet by mouth once daily Norvasc 5 MG Oral Tablet ; 1 Tablet qd for 0 days Quantity: 90 {Tablet} Refills: 1 Ordered: 17-Feb-2016 Start: 04-Jan-2016 End: 17-Feb-2016 Status: Inactive Comments: Mail order. Comment on above: Mail order. aspirin 81 mg delayed release oral tablet (20 sources) Platelet Aggregation Inhibitor, Nonsteroidal Anti-inflammatory Drug Start: 06-05-2018 take 1 tablet by mouth at bedtime Aspirin 81 MG tablet Active 81 mg PO AT BEDTIME June 05, 2018 1:00am End: 11-29-2016 aspirin 81 mg chewable table t Chew and Swallow 81 mg every evening. 11/29/2016 Discontinued atorvastatin 20 mg oral tablet (20 sources) HMG-CoA Reductase Inhibitor Start: 07-23-2024 atorvastatin 20 mg tablet ; 1 (one) Tablet qhs for 0 days Quantity: 90 {Tablet} Refills: 1 Ordered: 23-Jul-2024 MD Alireza Gutierrez Start: 23-Jul-2024 Comments: Mail order. Start: 04-09-2024 atorvastatin 2 0 mg tablet ; 1 (one) Tablet qhs for 0 days Quantity: 90 {Tablet} Refills: 1 Ordered: 09-Apr-2024 MD Alireza Gutierrez Start: 09-Apr-2024 Comments: Mail order. Start: 08-04-2021 atorvastatin 2 0 mg tablet ; 1 (one) Tablet qhs for 0 days Quantity: 90 {Tablet} Refills: 1 Ordered: 12-Oct-2023 MD Alireza Gutierrez Start: 12-Oct-2023 Comments: Mail order. Comment on above: Mail order. Cod Liver Oil (1 source) take 1 tablet by mouth twice daily cod liver oil Oil Take 1 tablet by mouth 2 (two) times a day . Active Cod Liver Oil capsule (2 sources) Start: 10-03-2024 Cod Liver Oil capsule Active 1 NMA PO TWICE A DAY October 03, 2024 11:01am Start: 03-11-2024 End: 10-03-2024 Cod Liver Oil capsule Discon tinued 1 NMA PO ONCE March 11, 2024 1:00am October 03, 2024 11:02am Cod Liver Oil Oral Capsule (20 sources) take 1 capsule by mouth twice daily Cod Liver Oil Oral Capsule ; 1 two times daily finasteride 5 mg oral tablet (20 sources) 5-alpha Reductase Inhibitor Start: 05-30-19 End: 10-04-19 25 take 1 tablet by mouth once daily Finasteride 5 mg tablet Active 5 mg PO daily October 03, 2024 10:59am fluticasone propionate 0.05 mg/actuat metered dose nasal spray (20 sources) Corticosteroid Start: 03-11-20 24 take 50 ug nasal route once daily as needed Fluticasone Propionate (Flonase Allergy Relief) 50 mcg/actuation spray,suspension Active 1 NMA INTRANASAL daily as needed March 11, 2024 1:00am administer into each nostril Start: 01-14-2016 End: 04-17-2018 take 2 spray(s) nasal route once Fluticasone Propionat e 50 MCG/ACT Nasal Suspension ; 2 (two) spray spray per nostril per day for 0 days Quantity: 1 {Inhaler} Refills: 3 Ordered: 17-Apr-2018 TOVA Rosado Luisa Rouse Start: 14-Jan-2016 End: 17-Apr-2018 Status: Inactive Start: 07-01-2013 End: 2016 take 2 spray(s) nasal route once daily FLONASE, 50MCG/ACT (Nasal Suspension) ; 2 sprays each nostril daily for 0 days Quantity: 1 {Inhaler} Refills: 3 Ordered: 01-Jul-2013 Start: 01-Jul-2013 End: 17-Feb-2016 Status: Discontinued Comments: This order discontinued per [facility]. fluticasone (ELTON NASE) 50 mcg/actuation nasal spray Instill 2 sprays into each nostril as needed for rhinitis. Active Comment on above: This order discontin ued per [facility]. Glutamine (1 source) Amino Acid glutamine, bulk, Powd Take 4 mL by mouth. Active ibuprofen 200 mg oral tablet (1 source) Nonsteroidal Anti-inflammatory Drug Start: 5 take 1 tablet by mouth every six hours as needed Ibuprofen 200 mg tablet Active 200 mg PO EVERY 6 HOURS as needed October 03, 2024 12:00am Ketoconazole 2 % shampoo (1 source) Start: 5 Ketoconazole 2 % shampoo Active TOPICAL October 03, 2024 12:00am metoprolol tartrate 100 mg oral tablet (20 sources) beta-Adrenergic Douglas Start: 5 metoprolol tartrate 100 mg tablet ; 1/2 Tablet q AM and 1 tab q PM for 0 days Quantity: 135 {Tablet} Refills: 1 Ordered: 10-Sep-2024 MD Alireza Gutierrez Start: 10-Sep-2024 Comments: Mail order. Start: 03-14-2024 metoprolol tar trate 100 mg tablet ; 1/2 Tablet q AM and 1 tab q PM for 0 days Quantity: 135 {Tablet} Refills: 1 Ordered: 14-Mar-2024 MD Alireza Gutierrez Start: 14-Mar-2024 Comments: Mail order. Start: 09-17-2023 metoprolol tar trate 100 mg tablet ; 1/2 Tablet q AM and 1 tab q PM for 0 days Quantity: 135 {Tablet} Refills: 1 Ordered: 17-Sep-2023 MD Alireza Gutierrez Start: 17-Sep-2023 Comments: Mail order. Start: 03-20-2023 metoprolol tar trate 100 mg tablet ; 1/2 Tablet q AM and 1 tab q PM for 0 days Quantity: 135 {Tablet} Refills: 1 Ordered: 20-Mar-2023 MD Alireza Gutierrez Start: 20-Mar-2023 Comments: Mail order. Start: 06-05-2018 End: 10-03-2024 take 1 tablet by mouth in the evening Metoprolol Tartrate 100 mg tablet Active 100 mg PO .COMPLEX October 03, 2024 11:00am 100 mg orally 1/2 tablet in the am and 1 tablet in the pm; Start: 06-05-2018 End: 05-30-2023 take 1 tablet by mouth once daily Metoprolol Tartrate 50 MG tablet Discontinued 50 mg PO DAILY June 05, 2018 1:00am May 30, 2023 11:54am take 1 tablet by edgard th once daily in the evening metoprolol tartrate (LOPRESSOR) 100 MG tablet Take 100 mg by mouth every evening. Active metoprolol tartr ate (LOPRESSOR) 100 MG tablet Take 50 mg by mouth every morning. Active End: 11-29-2016 metoprolol tartrate (LOPRESS OR) 50 MG tablet Take 25 mg by mouth 2 (two) times a day. 11/29/2016 Discontinued Comment on above: Mail order. MULTIVIT-MIN/FA/LYCO PEN/LUTEIN (CENTRUM SILVER MEN ORAL) (1 source) take 1 tablet by mouth once daily in the evening MULTIVIT-MIN/FA/LYC OPEN/LUTEIN (CENTRUM SILVER MEN ORAL) Take 1 tablet by mouth every evening. Active 24 hr oxybutynin chloride 10 mg extended release oral tablet (8 sources) Cholinergic Muscarinic Antagonist Start: take 1 tablet by mouth once daily Oxybutynin Chloride 10 mg tablet extended release 24hr Active 10 mg PO daily October 03, 2024 12:00am oxyBUTYnin chlor kay ER 10 mg tablet,extended release 24 hr ; 1 daily (10 mg) microencapsulated potassium chloride 20 meq extended release oral tablet (20 sources) Start: 08-11-2024 Klor-Con M20 m Eq tablet,extended release ; 2 (two) Tablet daily for 0 days Quantity: 180 {Tablet} Refills: 1 Ordered: 11-Aug-2024 MD Alireza Gutierrez Start: 11-Aug-2024 Comments: Mail order. Start: 05-12-2024 Klor-Con M20 m Eq tablet,extended release ; 2 (two) Tablet daily for 0 days Quantity: 180 {Tablet} Refills: 1 Ordered: 12-May-2024 MD Alireza Gutierrez Start: 12-May-2024 Comments: Mail order. Start: 11-12-2023 Klor-Con M20 m Eq tablet,extended release ; 2 (two) Tablet daily for 0 days Quantity: 180 {Tablet} Refills: 1 Ordered: 12-Nov-2023 MD Alireza Gutierrez Start: 12-Nov-2023 Comments: Mail order. Start: 11-17-2022 Klor-Con M20 m Eq tablet,extended release ; 2 (two) Tablet daily for 0 days Quantity: 180 {Tablet} Refills: 1 Ordered: 16-May-2023 MD Alireza Gutierrez Start: 16-May-2023 Comments: Mail order. Start: 06-05-2018 End: 03-11-2024 Potassium Chloride (Klor-Con M20) 20 mEq tablet,ER particles/crystals Active 40 meq PO DAILY March 11, 2024 12:42pm 1500 Start: 04-10-2016 End: 10-16-2016 take 1 tablet by mouth once daily Potassium Chloride Ledy ER 20 MEQ Oral Tablet Extended Release ; 1 Tablet qd for 0 days Quantity: 180 {Tablet} Refills: 1 Ordered: 16-Oct-2016 TOVA Diaz Start: 10-Apr-2016 End: 16-Oct-2016 Status: Inactive Comments: Mail order. [facility] Comment on above: Mail order. Mail order. [facility] ess tamsulosin hydrochloride 0.4 mg oral capsule (20 sources) alpha-Adrenergic Douglas Start: 08-04-2021 take 1 capsule by mouth at bedtime Tamsulosin (Flomax) 0.4 mg Capsule Active 0.4 mg PO AT BEDTIME August 04, 2021 12:00am Completed/Discontinued Medications Medication Drug Class(es) Dates Sig (Normalized) Sig (Original) acetaminophen 500 mg oral tablet (6 sources) Start: 08-12-2021 End: 10-03-2024 Acetaminophen (Tylenol Ex Str Rapid Release) 500 mg Tablet Discontinued 1000 mg PO THREE TIMES A DAY as needed for Pain August 12, 2021 12:00am October 03, 2024 11:09am acetaminophen 325 mg / HYDROcodone bitartrate 5 mg oral tablet (6 sources) Opioid Agonist Start: 08-12-2021 End: 04-16-2023 Hydrocodone-Acetamin ophen 5-325 mg Tablet Discontinued 1 {tbl} PO EVERY 6 HOURS as needed for Pain August 12, 2021 12:00am April 16, 2023 11:31am Start: 08-12-2021 End: 04-16-2023 take 1 tablet by mouth every six hours Hydrocodone-Acetaminophen Discontinued 1 TABLET PO EVERY 6 HOURS August 11, 2021 11:00pm April 16, 2023 10:31am [id number] 200 actuat albuterol 0.09 mg/actuat metered dose inhaler (20 sources) beta2-Adrenergic Agonist Start: 02-21-2016 End: 04-13-2017 take 2 puff(s) by inhalation every six hours as needed for cough ProAir HFA 108 (90 Base) MCG/ACT Inhalation Aerosol Solution ; 2 (two) puffs puffs q 6hrs prn SOB, cough for 0 days Quantity: 1 {Inhaler} Refills: 0 Ordered: 13-Apr-2017 TOVA Diaz Start: 21-Feb-2016 End: 13-Apr-2017 Status: Inactive amoxicillin 875 mg oral tablet (18 sources) Penicillin-class Antibacterial Start: 04-03-2024 End: 04-10-2024 amoxicillin 875 mg tablet ; 1 (one) tablet two times daily for 7 days Quantity: 14 {Tablet} Refills: 0 Ordered: 03-Apr-2024 NEGIN Stallworth Start: 03-Apr-2024 End: 10-Apr-2024 Status: Inactive amoxicillin 875 mg / clavulanate 125 mg oral tablet (20 sources) Penicillin-class Antibacterial Start: 05-10-2010 End: 05-20-2010 take 1 tablet by mouth twice daily at mealtime AUGMENTIN, 875-125MG (Oral Tablet) ; 1 Tab two times daily for 10 days Quantity: 20 {Tab} Refills: 0 Ordered: 10-Jun-2010 MD Alireza Gutierrez Start: 10-May-2010 End: 20-May-2010 Status: Inactive Comments: Take with food Comment on above: Take with food azithromycin 500 mg oral tablet (20 sources) Macrolide Antimicrobial Start: 08-17-2010 End: 08-20-2010 take 1 tablet by mouth once daily ZITHROMAX TRI-ALVIN, 500MG (Oral Tablet) ; 1 (one) Tablet daily for 3 days Quantity: 3 {Tablet} Refills: 0 Ordered: 17-Aug-2010 TOVA Ocampo Start: 17-Aug-2010 End: 20-Aug-2010 Status: Inactive benzonatate 100 mg oral capsule (20 sources) Non-narcotic Antitussive Start: 2016 End: 10-16-2016 take 1 capsule by mouth three times daily as needed Tessalon Perles 100 MG Oral Capsule ; 1 (one) Cap Cap three times daily as needed for cough for 0 days Quantity: 30 {Capsule} Refills: 0 Ordered: 16-Oct-2016 TOVA Diaz Start: 17-Feb-2016 End: 16-Oct-2016 Status: Inactive Comments: Medication taken as needed. swallow whole Comment on above: Medication taken as needed. swallow whole bicalutamide 50 mg oral tablet (20 sources) Androgen Receptor Inhibitor take 1 tablet by mouth once daily Casodex 50 MG Oral Tablet ; 1 daily (50 MG) Status: Inactive Comments: per Dr. Astorga Comment on above: per Dr. Astorga cetirizine hydrochloride 10 mg oral tablet (20 sources) Histamine-1 Receptor Antagonist Start: 08-17-2010 End: 08-22-2012 take 1 tablet by mouth once daily CETIRIZINE HCL, 10MG (Oral Tablet) ; 1 Tablet daily for 0 days Quantity: 30 {Tablet} Refills: 2 Ordered: 22-Aug-2012 TOVA Orozco Start: 17-Aug-2010 End: 22-Aug-2012 Status: Inactive codeine phosphate 2 mg/ml / promethazine hydrochloride 1.25 mg/ml oral solution (20 sources) Opioid Agonist, Phenothiazine Start: 2016 End: 10-16-2016 Promethazine-Codeine 6.25-10 MG/5ML Oral Syrup ; 1-2 teaspoon(s) teaspoon(s) four times daily, as needed for 0 days Quantity: 120 {Milliliter} Refills: 0 Ordered: 16-Oct-2016 TOVA Diaz Start: 17-Feb-2016 End: 16-Oct-2016 Status: Inactive Comments: Medication taken as needed. Comment on above: Medication taken as needed. hydroCHLOROthiazide 25 mg oral tablet (20 sources) Thiazide Diuretic Start: 01-04-2016 End: 2016 take 1 tablet by mouth once daily HydroCHLOROthiazide 25 MG Oral Tablet ; 1 Tablet qd for 0 days Quantity: 90 {Tablet} Refills: 1 Ordered: 17-Feb-2016 Start: 04-Jan-2016 End: 17-Feb-2016 Status: Inactive Comments: Mail order. Comment on above: Mail order. levoFLOXacin 500 mg oral tablet (20 sources) Quinolone Antimicrobial Start: 2016 End: 02-27-2016 take 1 tablet by mouth once daily Levaquin 500 MG Oral Tablet ; 1 Tab Tab daily for 10 days Quantity: 10 {Tablet} Refills: 0 Ordered: 17-Feb-2016 TOVA Diaz Start: 17-Feb-2016 End: 27-Feb-2016 Status: Inactive Problems Active Problems Problem Classification Problem Date Documented Da te Episodic/Chronic Acute bronchitis (20 sources) Acute bronchitis; Translations: [Acute bronchitis, unspecified] 04-13-2021 Episodic Administrative/social admission (20 sources) Repeated prescription; Translations: [Encounter for issue of repeat prescription] 04-13-2021 Episodic Alcohol-related disorders (3 sources) Alcohol abuse with intoxication, unspecified; Translations: [Alcohol intoxication] Onset: 11-29-2016 Chronic Cancer of prostate (20 sources) Malignant tumor of prostate; Translations: [Malignant neoplasm of prostate] Onset: 05-22-2024 11-15-2022 Chronic Coronary atherosclerosis and other heart disease (1 source) Coronary atherosclerosis and other heart disease 11-14-2023 Disorders of lipid metabolism (20 sources) Hyperlipidemia; Translations: [Hyperlipidemia, unspecified] 11-15-2022 Chronic Essential hypertension (20 sources) Benign hypertension; Translations: [Essential (primary) hypertension] 11-15-2022 Chronic Fracture of lower limb (20 sources) Closed bimalleolar fracture; Translations: [Displaced bimalleolar fracture of left lower leg, initial encounter for closed fracture] Episodic Hyperplasia of prostate (20 sources) Benign prostatic hyperplasia; Translations: [Benign prostatic hyperplasia without lower urinary tract symptoms] 04-13-2021 Chronic Immunizations and screening for infectious disease (20 sources) Need for prophylactic vaccination and inoculation against influenza; Translations: [Needs influenza immunization] 04-13-2021 Episodic Malaise and fatigue (20 sources) Fatigue; Translations: [Other fatigue] 10-19-2020 Episodic Neoplasms of unspecified nature or uncertain behavior (20 sources) Bladder polyp; 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] 10-18-2018 Episodic Other aftercare (20 sources) Long-term (current) use of other medications 04-13-2021 Episodic Other and ill-defined cerebrovascular disease (20 sources) Small vessel cerebrovascular disease; Translations: [Cerebrovascular disease, unspecified] 11-15-2022 Chronic Other and unspecified benign neoplasm (20 sources) Polyp of colon; Translations: [Polyp of colon] 11-15-2022 Episodic Comment on above: last scope was 2016, followed by Dr Casanova. Repeat due in 2021. Other connective tissue disease (20 sources) Recurrent falls ; Translations: [Repeated falls] 04-13-2021 Episodic Other connective tissue disease (14 sources) Muscle weakness of limb; Translations: [Other symptoms and signs involving the musculoskeletal system] 07-01-2024 Episodic Other connective tissue disease (1 source) Other symptoms and signs involving the musculoskeletal system; Translations: [Other symptoms and signs involving the musculoskeletal system] Onset: 10-13-2024 Episodic Other fractures (1 source) Fracture of twelfth thoracic vertebra; Translations: [Wedge compression fracture of T11-T12 vertebra, initial encounter for closed fracture] 03-11-2024 Episodic Other gastrointestinal disorders (20 sources) 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; Translations: [Gastroenteritis and colitis due to radiation] 11-15-2022 Episodic Other injuries and conditions due to external causes (20 sources) At risk for falls ; Translations: [History of falling] 04-13-2021 Episodic Other injuries and conditions due to external causes (20 sources) Elbow, forearm, and wrist injury 08-22-2012 Episodic Other injuries and conditions due to external causes (20 sources) Head injury, unspecified 08-22-2012 Episodic Other nervous system disorders (1 source) Spinal cord disease; Translations: [Disease of spinal cord, unspecified] 03-11-2024 Chronic Other nervous system disorders (20 sources) Abnormal gait; Translations: [Unspecified abnormalities of gait and mobility] 11-15-2022 Episodic Other nervous system disorders (1 source) Impairment of balance; Translations: [Other abnormalities of gait and mobility] 03-11-2024 Episodic Other non-traumatic joint disorders (20 sources) Hip pain; Translations: [Pain in left hip] 12-05-2023 Episodic Other nutritional; endocrine; and metabolic disorders (20 sources) Body mass index 30+ - obesity; Translations: [Body mass index (BMI) 30.0-30.9, adult] 04-13-2021 Chronic Other screening for suspected conditions (not mental disorders or infectious disease) (20 sources) Patient encounter status; Translations: [Encounter for screening for lipoid disorders] 04-13-2021 Episodic Other skin disorders (20 sources) Sebaceous cyst 02-24-2014 Episodic Other upper respiratory disease (20 sources) Eosinophilic nonallergic rhinitis; 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] 04-13-2021 Chronic Other upper respiratory disease (20 sources) Allergic rhinitis due to pollen; Translations: [Allergic rhinitis due to pollen] 03-07-2011 Chronic Other upper respiratory infections (20 sources) Sinusitis; Translations: [Chronic sinusitis, unspecified] 08-18-2010 Chronic Other upper respiratory infections (20 sources) Bacterial upper respiratory infection; Translations: [Acute upper respiratory infection, unspecified] 04-03-2024 Episodic Residual codes; unclassified (20 sources) Intolerant of ambient temperature; Translations: [Other general symptoms and signs] 11-14-2023 Episodic Skull and face fractures (20 sources) Closed fracture of nasal bones 08-22-2012 Episodic Spondylosis; intervertebral disc disorders; other back problems (20 sources) Lumbar spondylosis; Translations: [Spondylosis without myelopathy or radiculopathy, lumbar region] Onset: 05-16-2024 04-16-2023 Chronic Superficial injury; contusion (20 sources) Ecchymosis; Translations: [Contusion of unspecified eyelid and periocular area, initial encounter] 08-22-2012 Episodic Syncope (20 sources) Syncope; Translations: [Syncope and collapse] 10-05-2017 Episodic Unclassified (20 sources) Follow up for multiple chronic conditions - The patient is here for follow-up of hypertension. The patient always takes the prescribed medications. No side effects noted. The patient engages in regular exercise program 1-3 times per week. The patient's out of office blood pressure checks occur occasionally. The patient states that the disease has no overall impact. Note for Multiple chronic conditions follow-up: reviewed by [facility] 11-15-2022 Unclassified (20 sources) Follow Up for Multiple Chronic Conditions - The patient is here for follow-up of hyperlipidemia, hypertension and other condition(s) (Prostate Cancer). The patient always takes the prescribed medications. No side effects noted. The patient has low activity level and no regular exercise program. The patient's out of office blood pressure checks occur frequently and dietary compliance is fairly good usually adhering to recommendations. The patient states that there is no recent angina or dyspnea, there are no vision changes or weakness, weight has increased and they do not have headaches. Note for Multiple chronic conditions follow-up: reviewed by [facility] 11-02-2021 Unclassified (20 sources) Follow Up for Multiple Chronic Conditions - The patient is here for follow-up of hyperlipidemia, hypertension and other condition(s) (Prostate Cancer). The patient always takes the prescribed medications. No side effects noted (needs refills today). The patient has low activity level and no regular exercise program. The patient's out of office blood pressure checks occur frequently (brought list of readings with him today) and dietary compliance is fairly good usually adhering to recommendations. The patient states that there is no recent angina or dyspnea, there are no vision changes or weakness, weight has increased (2lbs since STARR) and they do not have headaches. Note for Multiple chronic conditions follow-up: Would like to have his fingernails looked at.Would like to discuss doing therapy/exercise at [facility] therapy. 10-19-2020 Unclassified (20 sources) [ADDITIONAL REASON] Transition into care - The patient is transitioning into care from another physician (Dr. Russ of Oncology/Hematology 04/[address] Pitt of Urology 10/07/2020) and a summary of care was reviewed. 10-19-2020 Unclassified (20 sources) Follow Up for Multiple Chronic Conditions - The patient is here for follow-up of hyperlipidemia, hypertension and other condition(s) (Prostate Cancer). The patient always takes the prescribed medications. No side effects noted (needs refill sent to mail order). The patient has low activity level and no regular exercise program. The patient's out of office blood pressure checks occur frequently (brought list of readings today) and dietary compliance is fairly good usually adhering to recommendations. The patient states that there is no recent angina or dyspnea, weight has increased (8lbs since STARR) and they do not have headaches. Note for Multiple chronic conditions follow-up: States that he will have intermittent low grade fever. had a cough, but no cough currently. Temp has been up to 100.4 09-29-2019 Unclassified (20 sources) [ADDITIONAL REASON] Transition into care - The patient is transitioning into care from another physician (Dr. Astorga 05/20/2019) and a summary of care was reviewed. Note for Transition into care: Patient saw Dr. Pitt earlier today 09/29/2019. 09-29-2019 Unclassified (20 sources) Follow Up for Multiple Chronic Conditions - The patient is here for follow-up of hypertension and other condition(s) (Prostate Cancer). The patient always takes the prescribed medications. No side effects noted (needs refills today). The patient has low activity level and no regular exercise program. The patient's out of office blood pressure checks occur occasionally (brought list of readings) and dietary compliance is fairly good usually adhering to recommendations. The patient states that there is no recent angina or dyspnea, weight has increased (4 lbs) and they do not have headaches. Note for Multiple chronic conditions follow-up: reviewed by [facility] 10-18-2018 Unclassified (20 sources) [ADDITIONAL REASON] Transition into care - The patient is transitioning into care from another physician (Dr. Pitt of Urology 06/25/2018, [facility] for surgery 06/11 to 06/12/2018.) and a summary of care was reviewed. 10-18-2018 Unclassified (20 sources) Follow Up for Multiple Chronic Conditions - The patient is here for follow-up of hypertension. The patient always takes the prescribed medications. No side effects noted. The patient has low activity level and no regular exercise program. The patient's out of office blood pressure checks occur occasionally (Last home BP 136/76.) and dietary compliance is fairly good usually adhering to recommendations. The patient states that there is no recent angina or dyspnea, weight has increased (up 9 pounds) and headaches are rarely noted. Note for Multiple chronic conditions follow-up: reviewed by [facility] 04-17-2018 Unclassified (20 sources) Follow Up for Multiple Chronic Conditions - The patient is here for follow-up of hypertension and other condition(s) (Prostate Cancer and Risk for Falls.). The patient always takes the prescribed medications. No side effects noted. The patient has low activity level and no regular exercise program (Uses cane to ambulate). The patient's out of office blood pressure checks occur frequently (Has list with him to review.). The patient states that there is no recent angina or dyspnea, there are no vision changes or weakness, weight is unchanged and they do not have headaches. Dr. Pitt- November 07 and next appt 05/08/17; Dr Astorga September of 2016 and next appt 05/08/[address] Vargas last appt june 2016 and net appt. Note for Multiple chronic conditions follow-up: Labs done and ready to review. reviewed by [facility] 04-13-2017 Unclassified (20 sources) Follow Up for Multiple Chronic Conditions - The patient is here for follow-up of hypertension and other condition(s) (Prostate Cancer, Risk for falls. A concern he has today is that every once in awhile his face will turn bright red at times and pt will feel feverish. No actual fever and episode lasts about 1/2 hour.Pt has stress fracture in right knee and is currently in brace and walking with a cane. Saw Dr. Boles b. 06/27/16). The patient always takes the prescribed medications. No side effects noted (Had last injection from Dr. Pitt in April and can still feel it in left side of stomach. Area is not tender. This was his last injection.). The patient has low activity level and no regular exercise program (Walks with cane.). The patient's out of office blood pressure checks occur frequently (Has list with him.) and dietary compliance is good with close adherance to recommendations. The patient states that there is no recent angina or dyspnea, there are no vision changes or weakness, weight has decreased (Has lost 15# from last visit. He has been trying.) and they do not have headaches. The patient states that the disease has no emotional impact. Dr. Astorga 05/03/2016 ([place]so saw Dr. Pitt 05/08/16. Next appt in October.). Note for Multiple chronic conditions follow-up: reviewed by [facility] 10-16-2016 Unclassified (20 sources) [ADDITIONAL REASON] Transition into care - The patient is transitioning into care from another physician (Dr. Astorga05/03/[address] Pitt 05/08/16) and a summary of care was reviewed. 10-16-2016 Unclassified (20 sources) Follow Up for Multiple Chronic Conditions - The patient is here for follow-up of hypertension and other condition(s) (BPH with elevated PSA.). The patient always takes the prescribed medications. No side effects noted. The patient has low activity level and no regular exercise program (Uses cane to ambulate.). The patient's out of office blood pressure checks occur frequently (Has list with him.). The patient states that there is no recent angina or dyspnea (Nochest pain but dies get SOB on occassion. PO today 99%.), weight has increased (up 5# from last visit.) and they do not have headaches. The patient states that the disease has mild emotional impact. Dr. Best03/28/16. Sees him again 05/03/[address] Pitt 05/08/15.. Note for Multiple chronic conditions follow-up: Up quite a bit to urinate. up anywhere from 1 1/2 hours to [address] Elam ended 03/28/16.Pt is having a colonoscopy on 05/22/16. reviewed by [facility] 04-17-2016 Unclassified (20 sources) [ADDITIONAL REASON] Transition into care - The patient is transitioning into care from another physician and a summary of care was reviewed . 04-17-2016 Unclassified (20 sources) Follow Up for Multiple Chronic Conditions - The patient is here for follow-up of hypertension and other condition(s) (BPH, Cerebral Vascular Disease). The patient always takes the prescribed medications. No side effects noted. The patient has an active lifestyle but no regular exercise program (Gets along well with cane.). The patient's out of office blood pressure checks occur frequently (HAs list with him.). The patient states that there is no recent angina or dyspnea, there are no vision changes or weakness, weight has increased (up 3 # from last visit.) and they do not have headaches. The patient states that the disease has mild emotional impact. Dr. Ash Astorga 01/14/16. Note for Multiple chronic conditions follow-up: Sees Dr. Astorga for his Prostate and up about 3-4 times a night. Starts Radiation for his Prostate in couple weeks. Had PSA done last week in his office and said that it was less than 1 but does not kno exact result.Had biopsy done per Dr. Pitt September 05 and then pt developed blood clots in left leg shortly after. Not on any Coumadin at this time. I reviewed u/s reports from September and the clots were superficial, they were DVT. 01-14-2016 Unclassified (20 sources) [facility] Routine Follow up - The patient is here for follow-up of hypertension and BPH. The patient has low activity level and no regular program. The patient's out of office blood pressure checks occur occasionally (Last home reading 117/58.) and dietary compliance is fairly good usually adhering to recommendations. The patient states that there is no recent angina or dyspnea, pain is generally stable, weight has increased (up 12 pounds) and headaches are rarely noted. Note for Routine chronic follow-up: reviewed by [facility] 07-09-2015 Unclassified (20 sources) Follow Up for Multiple Chronic Conditions - The patient is here for follow-up of hypertension and other condition(s) (BPH with elevated PSA. Last PSA was and was 6.4 Last Lipid/CMP was 11/2013. Has nly had coffee and medications this morning in case labs needed.). The patient always takes the prescribed medications. No side effects noted. The patient engages in regular exercise program 1-3 times per week (Goes to [employer] couple times a week to work out.). The patient's out of office blood pressure checks occur frequently (Takes them once a day. Forgot his list. Average BP is about 120's/60-70's.) and dietary compliance is fairly good usually adhering to recommendations. The patient states that there is no recent angina or dyspnea (NO chest pain but has had some episodes of SOB. However these episodes related to when he pulling or putting clothes or jakob hose on and abdomen pushes up into his diaphragm. Other than that no SOB.), weight has decreased (Weight down 6# from last visit.), sleep patterns have improved (only up to bathroom when he has increased his fluid intake in the evening. ) and they do not have headaches. 09/28/14- Dr. Ma. Note for Multiple chronic conditions follow-up: Pt also saw a thin film technician several weeks ago and was given 2 medications foe his scalp- one is a shampoo and the other a cream for his face. He does not have names of meds. reviewed by [facility] 01-08-2015 Unclassified (20 sources) Follow Up for Multiple Chronic Conditions - The patient is here for follow-up of hypertension. The patient always takes the prescribed medications. No side effects noted (Does not need refills.). The patient has low activity level and no regular exercise program. The patient's out of office blood pressure checks occur occasionally and dietary compliance is fairly good usually adhering to recommendations. The patient states that there is no recent angina or dyspnea, weight has increased (Up 23 pounds.) and headaches are rarely noted. Note for Multiple chronic conditions follow-up: reviewed by [facility] 07-08-2014 Unclassified (20 sources) Follow Up for Multiple Chronic Conditions - The patient is here for follow-up of hypertension and other condition(s) (cerebrovascular small vessel dx, low back pain, BPH). The patient always takes the prescribed medications. No side effects noted. The patient engages in regular exercise program 3-5 times per week (Goes to PT 3x week.). The patient's out of office blood pressure checks occur frequently (and has list with him.) and dietary compliance is fairly good usually adhering to recommendations. The patient states that there is no recent angina or dyspnea, pain has improved, weight has decreased (Down 2# from last visit.) and they do not have headaches. Note for Multiple chronic conditions follow-up: Pt has a lump on mid left area of back. Noticed it 6 months ago. Said he thought he had cyst removed from that area in past. Lump only sore if he bumps it otherwise it just itches. Has gotten bigger over the past 6 months. Has never drained.Pt also has varicose veins and found out he had SVT in leg per Dr. Vargas about 6 weeks ago found per Dr. Vargas. He is having an U/S of that leg on and will see Dr. Vargas to discuss results.Labs done and ready to review. reviewed by [facility] 01-06-2014 Unclassified (20 sources) Follow Up for Multiple Chronic Conditions - The patient is here for follow-up of hypertension. The patient always takes the prescribed medications. No side effects noted (Needs refills.). The patient engages in regular exercise program 3-5 times per week ([employer] 3 days a week.). The patient's out of office blood pressure checks occur frequently (last home reading was 98/65.) and dietary compliance is fairly good usually adhering to recommendations. The patient states that pain is worse (back and hip pain.), weight has decreased (Down 4 pounds.) and they do not have headaches. Note for Multiple chronic conditions follow-up: Is fasting today. reviewed by [facility] 07-01-2013 Unclassified (20 sources) Follow Up for Multiple Chronic Conditions - The patient is here for follow-up of hypertension. The patient always takes the prescribed medications. No side effects noted. The patient has an active lifestyle but no regular exercise program. The patient's out of office blood pressure checks occur frequently. Note for Multiple chronic conditions follow-up: wants you to look at his left leg, xray and MRI were done on low back and wants to discuss results. He has diffuse lumbar disc disease, moreon the left , especiually at L3-4. Pt has numbnes of toes on left foot, occassionally on right. 12-31-2012 Unclassified (20 sources) Follow up for multiple chronic conditions - The patient is here for follow-up of hypertension. The patient always takes the prescribed medications. No side effects noted. The patient has low activity level and no regular exercise program. The patient's out of office blood pressure checks occur frequently and dietary compliance is fairly good usually adhering to recommendations. The patient states that breathing effort is stable, there is no recent angina or dyspnea, there are no vision changes or weakness and they do not have headaches. Note for Multiple chronic conditions follow-up: Every now and then his legs will ache. Recently he fell when legs became weak. 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 A carotid doppler is pending. 09-03-2012 Unclassified (20 sources) Follow Up for Multiple Chronic Conditions - The patient is here for follow-up of hypertension. The patient always takes the prescribed medications. No side effects noted (Needs refills.). The patient has low activity level and no regular exercise program (For the past 6 months. ). The patient's out of office blood pressure checks occur occasionally (Last home reading 126/64.). The patient states that weight has increased (Up 6 pounds) and they do not have headaches. Note for Multiple chronic conditions follow-up: recent PSA was 5.2, it was 4.5 in [id number] Unclassified (20 sources) Follow Up for Multiple Chronic Conditions - The patient is here for follow-up of hypertension. The patient always takes the prescribed medications. No side effects noted (Needs refills.). The patient has low activity level and no regular exercise program. The patient's out of office blood pressure checks occur occasionally (120/70 is an average reading.) and dietary compliance is fairly good usually adhering to recommendations. The patient states that weight has decreased (down 2 pounds.). Note for Follow Up for Multiple Chronic Conditions: Is not fasting today. reviewed by [facility] 09-05-2011 Unclassified (20 sources) Follow Up for Multiple Chronic Conditions - The patient is here for follow-up of hypertension. The patient always takes the prescribed medications. No side effects noted. The patient has low activity level and no regular exercise program. The patient's out of office blood pressure checks occur occasionally. The patient states that weight has decreased (down 1 pound) and headaches are rarely noted. Note for Follow Up for Multiple Chronic Conditions: Pt c/o enlarging varicosity in left leg but minimally painful. 03-07-2011 Unclassified (20 sources) Follow up for multiple chronic conditions - The patient is here for follow-up of hypertension. The patient always takes the prescribed medications. No side effects noted. The patient has an active lifestyle but no regular exercise program. The patient's out of office blood pressure checks occur occasionally. The patient states that weight has increased. Note for Follow up for multiple chronic conditions: Complains of sinus drainage and slight cough. 09-06-2010 Unclassified (20 sources) Transition into care - The patient is transitioning into care from another physician and a summary of care was reviewed . 04-17-2016 Unclassified (19 sources) [ADDITIONAL REASON] Follow Up for Multiple Chronic Conditions - The patient is here for follow-up of hypertension and other condition(s) (BPH with elevated PSA.). The patient always takes the prescribed medications. No side effects noted. The patient has low activity level and no regular exercise program (Uses cane to ambulate.). The patient's out of office blood pressure checks occur frequently (Has list with him.). The patient states that there is no recent angina or dyspnea (Nochest pain but dies get SOB on occassion. PO today 99%.), weight has increased (up 5# from last visit.) and they do not have headaches. The patient states that the disease has mild emotional impact. Dr. Best03/28/16. Sees him again 05/03/[address] Pitt 05/08/15.. Note for Multiple chronic conditions follow-up: Up quite a bit to urinate. up anywhere from 1 1/2 hours to [address] Elam ended 03/28/16.Pt is having a colonoscopy on 05/22/16. reviewed by [facility] 04-17-2016 Unclassified (16 sources) [ADDITIONAL REASON] Follow Up for Multiple Chronic Conditions - The patient is here for follow-up of hypertension and other condition(s) (BPH with elevated PSA. Last PSA was 0225/15 and was 6.4 Last Lipid/CMP was 11/2013. Has nly had coffee and medications this morning in case labs needed.). The patient always takes the prescribed medications. No side effects noted. The patient engages in regular exercise program 1-3 times per week (Goes to [employer] couple times a week to work out.). The patient's out of office blood pressure checks occur frequently (Takes them once a day. Forgot his list. Average BP is about 120's/60-70's.) and dietary compliance is fairly good usually adhering to recommendations. The patient states that there is no recent angina or dyspnea (NO chest pain but has had some episodes of SOB. However these episodes related to when he pulling or putting clothes or jakob hose on and abdomen pushes up into his diaphragm. Other than that no SOB.), weight has decreased (Weight down 6# from last visit.), sleep patterns have improved (only up to bathroom when he has increased his fluid intake in the evening. ) and they do not have headaches. 09/28/14- Dr. Ma. Note for Multiple chronic conditions follow-up: Pt also saw a thin film technician several weeks ago and was given 2 medications foe his scalp- one is a shampoo and the other a cream for his face. He does not have names of meds. reviewed by [facility] 01-08-2015 Unclassified (13 sources) Transition into care - The patient is transitioning into care from another physician (Dr. Astorga05/03/[address] Pitt 05/08/16) and a summary of care was reviewed. 10-16-2016 Unclassified (13 sources) [ADDITIONAL REASON] Follow Up for Multiple Chronic Conditions - The patient is here for follow-up of hypertension and other condition(s) (Prostate Cancer, Risk for falls. A concern he has today is that every once in awhile his face will turn bright red at times and pt will feel feverish. No actual fever and episode lasts about 1/2 hour.Pt has stress fracture in right knee and is currently in brace and walking with a cane. Saw Dr. Boles May. 06/27/16). The patient always takes the prescribed medications. No side effects noted (Had last injection from Dr. Pitt in April and can still feel it in left side of stomach. Area is not tender. This was his last injection.). The patient has low activity level and no regular exercise program (Walks with cane.). The patient's out of office blood pressure checks occur frequently (Has list with him.) and dietary compliance is good with close adherance to recommendations. The patient states that there is no recent angina or dyspnea, there are no vision changes or weakness, weight has decreased (Has lost 15# from last visit. He has been trying.) and they do not have headaches. The patient states that the disease has no emotional impact. Dr. Astorga 05/03/2016 ([place] saw Dr. Pitt 05/08/16. Next appt in October.). Note for Multiple chronic conditions follow-up: reviewed by [facility] 10-16-2016 Unclassified (15 sources) [ADDITIONAL REASON] Follow Up for Multiple Chronic Conditions - The patient is here for follow-up of hypertension and other condition(s) (BPH, Cerebral Vascular Disease). The patient always takes the prescribed medications. No side effects noted. The patient has an active lifestyle but no regular exercise program (Gets along well with cane.). The patient's out of office blood pressure checks occur frequently (HAs list with him.). The patient states that there is no recent angina or dyspnea, there are no vision changes or weakness, weight has increased (up 3 # from last visit.) and they do not have headaches. The patient states that the disease has mild emotional impact. Dr. Ash Astorga 01/14/16. Note for Multiple chronic conditions follow-up: Sees Dr. Astorga for his Prostate and up about 3-4 times a night. Starts Radiation for his Prostate in couple weeks. Had PSA done last week in his office and said that it was less than 1 but does not kno exact result.Had biopsy done per Dr. Pitt September 05 and then pt developed blood clots in left leg shortly after. Not on any Coumadin at this time. I reviewed u/s reports from September and the clots were superficial, they were DVT. 01-14-2016 Unclassified (10 sources) Transition into care - The patient is transitioning into care from another physician (Dr. Russ of Oncology/Hematology 04/[address] Pitt of Urology 10/07/2020) and a summary of care was reviewed. 10-19-2020 Unclassified (10 sources) [ADDITIONAL REASON] Follow Up for Multiple Chronic Conditions - The patient is here for follow-up of hyperlipidemia, hypertension and other condition(s) (Prostate Cancer). The patient always takes the prescribed medications. No side effects noted (needs refills today). The patient has low activity level and no regular exercise program. The patient's out of office blood pressure checks occur frequently (brought list of readings with him today) and dietary compliance is fairly good usually adhering to recommendations. The patient states that there is no recent angina or dyspnea, there are no vision changes or weakness, weight has increased (2lbs since STARR) and they do not have headaches. Note for Multiple chronic conditions follow-up: Would like to have his fingernails looked at.Would like to discuss doing therapy/exercise at [facility]. 10-19-2020 Unclassified (18 sources) Transition into care - The patient is transitioning into care from another physician (Dr. [facility] 06/25/2018, [facility] for surgery 06/11 to 06/12/2018.) and a summary of care was reviewed. 10-18-2018 Unclassified (18 sources) [ADDITIONAL REASON] Follow Up for Multiple Chronic Conditions - The patient is here for follow-up of hypertension and other condition(s) (Prostate Cancer). The patient always takes the prescribed medications. No side effects noted (needs refills today). The patient has low activity level and no regular exercise program. The patient's out of office blood pressure checks occur occasionally (brought list of readings) and dietary compliance is fairly good usually adhering to recommendations. The patient states that there is no recent angina or dyspnea, weight has increased (4 lbs) and they do not have headaches. Note for Multiple chronic conditions follow-up: reviewed by B 10-18-2018 Unclassified (10 sources) Transition into care - The patient is transitioning into care from another physician (Dr. Astorga 05/20/2019) and a summary of care was reviewed. Note for Transition into care: Patient saw Dr. [facility] earlier today 09/29/2019. 09-29-2019 Unclassified (10 sources) [ADDITIONAL REASON] Follow Up for Multiple Chronic Conditions - The patient is here for follow-up of hyperlipidemia, hypertension and other condition(s) (Prostate Cancer). The patient always takes the prescribed medications. No side effects noted (needs refill sent to mail order). The patient has low activity level and no regular exercise program. The patient's out of office blood pressure checks occur frequently (brought list of readings today) and dietary compliance is fairly good usually adhering to recommendations. The patient states that there is no recent angina or dyspnea, weight has increased (8lbs since STARR) and they do not have headaches. Note for Multiple chronic conditions follow-up: States that he will have intermittent low grade fever. had a cough, but no cough currently. Temp has been up to 100.4 09-29-2019 Unclassified (1 source) Follow up for multiple chronic conditions - The patient is here for follow-up of hyperlipidemia, hypertension and other condition(s) (prostate cancer). The patient always takes the prescribed medications. No side effects noted. The patient has a sedentary lifestyle. The patient's out of office blood pressure checks occur rarely and dietary compliance is fairly good usually adhering to recommendations. The patient states that there is no recent angina or dyspnea, weight has decreased (down 5 lbs) and they do not have headaches. 11-14-2023 Unclassified (20 sources) Follow up for multiple chronic conditions - The patient is here for follow-up of hyperlipidemia, hypertension and other condition(s) (prostate cancer). The patient always takes the prescribed medications. No side effects noted. The patient has a sedentary lifestyle. The patient's out of office blood pressure checks occur rarely and dietary compliance is fairly good usually adhering to recommendations. The patient states that there is no recent angina or dyspnea, weight has decreased (down 5 lbs) and they do not have headaches. Note for Multiple chronic conditions follow-up: Pt and spouse report that he always feels cold. Uses several blankets at night. Today the ambient air temp is high 80s and pt is wearing a thermal vest. 11-14-2023 Unclassified (1 source) Low back pain, unspecified; Translations: [Low back pain, unspecified] Onset: 03-11-2024 Varicose veins of lower extremity (20 sources) Asymptomatic varicose veins 04-13-2021 Episodic Past or Other Problems Problem Classification Problem Date Documented Date Episodic/Chronic Fluid and electrolyte disorders (6 sources) Hypo-osmolality and hyponatremia; Translations: [Hypokalemia] Onset: 11-29-2016 Episodic Headache; including migraine (20 sources) Headache; including migraine 03-09-2010 Other fractures (1 source) Wedge compression fracture of T11-T12 vertebra, sequela; Translations: [Wedge compression fracture of T11-T12 vertebra, sequela] Onset: 04-29-2024 Episodic Other nervous system disorders (1 source) Other abnormalities of gait and mobility; Translations: [Other abnormalities of gait and mobility] Onset: 04-29-2024 Episodic Spondylosis; intervertebral disc disorders; other back problems (20 sources) Spinal stenosis, cervicothoracic region; Translations: [Spinal stenosis of cervicothoracic region] Onset: 03-11-2024 04-16-2023 Episodic Unclassified (20 sources) MCR Well Adult - In general [...] medications or finances. Note for MCR Well Adult: Pt has blood in his urine 04/22/2022 but was clear in a couple hour but had ct done and had small kidney stone. 05-17-2022 Unclassified (20 sources) MCR Well Adult - In general [...] The patient has a Healthcare Power of Panel Laminator and a Living Will. 04-13-2021 Unclassified (20 sources) [facility] Well Adult - In general the patient [...] The patient has a Healthcare Power of Panel Laminator and a Living Will. 04-16-2019 Unclassified (20 sources) [facility] Well Adult - In general the patient [...] The patient has a Healthcare Power of Panel Laminator and a Living Will. Note for MCR Well Adult: reviewed by [facility] 10-05-2017 Unclassified (20 sources) Follow up consultation - The patient is here to follow-up after hospitalization (Pt diagnosed with Syncope) on : (Admitted 04/17/17 and discharged 04/18/2017.). There is a family history of cardiovascular disease and other condition(s) (CVA and HTN.). Past medical history includes hypertension. Note for Consultation follow-up: Pt states that he is actually feeling well. Has no further episodes of syncope or leg weakness. Has been keeping records of BP's. Had testing done and ready to review/discuss.He had got up to go the BR at night , got lihtheaded and passed out after using rest room. BP was 108/69 when he regained consciousness. 05-04-2017 Unclassified (20 sources) [ADDITIONAL REASON] Transition into care - The patient is transitioning into care from a hospital and a summary of care was reviewed. 05-04-2017 Unclassified (20 sources) F/U - Pt here today to [...] exposed to fiber glass dust. 02-21-2016 Unclassified (20 sources) Cold Symptoms - Symptoms include runny [...] daycare or smoking. Note for Upper respiratory infection: Most symptoms are subsiding currently besides cough, which is persistent/loose and decreasing sleep quality. 2016 Unclassified (20 sources) Cyst Removal - Cyst on mid back for 6 months. Occasionally painful. Here for removal. see previous note 2014 Unclassified (20 sources) facial injuries - Pt is here [...] gave out and he fell. 08-22-2012 Unclassified (20 sources) Cold Symptoms - Symptoms include runny [...] Medical History Includes recurrent sinusitis. 08-18-2010 Unclassified (20 sources) Sebaceous cyst - Sebaceous cyst removal. Mid back. 07-19-2010 Unclassified (20 sources) Cyst reoval - Pt here to have cyst removed from lower back. Took augmentin for 10 days. Pt states there were 2 cysts and 1 is closed and the other just slightly open. No drainage noted but he saqys the one drains occassionally but not very much or often. 06-10-2010 Unclassified (20 sources) Draining cyst on lower back - Draining cyst for the past 2 days. Painful. Had the cyst for an extended period of time, first time to drain. 05-10-2010 Unclassified (15 sources) Transition into care - The patient is transitioning into care from a hospital and a summary of care was reviewed. 05-04-2017 Unclassified (15 sources) [ADDITIONAL REASON] Follow up consultation - The patient is here to follow-up after hospitalization (Pt diagnosed with Syncope) on : (Admitted 04/17/17 and discharged 04/18/2017.). There is a family history of cardiovascular disease and other condition(s) (CVA and HTN.). Past medical history includes hypertension. Note for Consultation follow-up: Pt states that he is actually feeling well. Has no further episodes of syncope or leg weakness. Has been keeping records of BP's. Had testing done and ready to review/discuss.He had got up to go the BR at night , got lihtheaded and passed out after using rest room. BP was 108/69 when he regained consciousness. 05-04-2017 Unclassified (20 sources) MCR Well Adult - In general the patient feels well with no complaints, has good energy level and is sleeping well. The patient has a balanced diet and takes supplemental vitamins. sleeps 8 hours per night. The patient denies having trouble with bathing, dressing/grooming, toileting, preparing meals and ambulating. The patient denies having trouble with grocery shopping, use of telephone, housework, laundry, preparing/taking medications and finances, but admits to having trouble with driving. The patient has a Healthcare Power of Panel Laminator and a Living Will. Note for MCR Well Adult: reviewed by [facility] 05-15-2023 Unclassified (18 sources) Cold Symptoms - Symptoms include nasal congestion, dry cough, productive cough and wheezing, but do not include ear pain, fever or headache. The onset was 1 week(s) ago. The symptoms occur constantly. The patient describes this as mild and worsening. Current treatment includes non-prescription cold medication (cold meds, flonase, afrin). 04-03-2024 Unclassified (1 source) MCR Well Adult 07-01-2024 Unclassified (7 sources) MCR Well Adult - In general the patient feels well with no complaints, has good energy level and is sleeping poorly (Patient has trouble staying asleep, and getting up to urinate a lot). The patient has a balanced diet. The patient does not exercise and sleeps 8 (broken up) hours per night. The patient denies having trouble with bathing, dressing/grooming, toileting, preparing meals and ambulating (with a walker). The patient denies having trouble with grocery shopping, driving, use of telephone, housework, laundry, preparing/taking medications and finances. The patient has a Healthcare Power of Panel Laminator and a Living Will. 07-01-2024 Results Test Name Value Interpretation Reference Range Facility Neurology Visit Reporton Neurology Visit Report [facility] [address] [place] [address], [address] [place] [address] OFFICE VISIT Date of Service: 10/03/24 MR#: [id number] Acct: [id number] Name: ELLIOTT CARMONA Rep #: [id number] : 1945 Provider: Dr. Albert narvaez MD Age/Sex: 79/M Location: [facility]. Status: Signed HPI HPI Chief Complaint: Establish Care Details: The patient is a 79-year-old right handed male who presents to [facility]. He was referred 07/02/[address] Alireza Gutierrez with [facility] in [place] for leg weakness. This man presents with his for evaluation. 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 Patient has a complaint of sudden loss of power and control of the left leg which occurs episodically. It is severe enough to cause him to fall. He does walk with a walker. His indicates that when he begins leaning to the left she knows that he is going to fall. Patient states that this onset is painless. Nevertheless he has been evaluated by orthopedics and has had an MRI of the cervical thoracic and lumbar spine. 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 Signal within the cord appeared normal. 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 Patient states that when he twists or turns he loses control and has a tendency to fall. He states that the symptoms are restricted to the left leg only. About 2 years ago he twisted fell had a complicated fracture of his left ankle. He had had a prior stress fracture of the left knee in past. Patient did have CTs and MRIs in 2013 and 2017. Small incidental lacunar basal ganglia infarct on the left noted. This apparently was without clinical manifestation. Patient is not a diabetic. He does have hypertension.. ROS: General: No pulmonary issues noted. Quit smoking more than 15 years ago. HEENT: No headache no head injury vision shows she has had IOLs placed. 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 Wears leg compression stockings. Skin: No particular rashes. Neurologic: No known strokes or seizures. Exam Const Other: BP 163/78 pulse 81 respiration 15 temperature 98.2 O2 sat 96% BMI is 32.5%. General appearance well-developed well-nourished male sitting quietly in a chair. HEENT: Normocephalic. Show sclera and conjunctiva clear. Respiratory: Clear to auscultation Cardiac: Regular rhythm no murmur Abdomen not distended Extremities wearing compression hose both legs up to thigh. Skin: Intact on upper extremities. Neurologic examination: Mental status: Awake alert oriented x 3. Memory is 3 for 3. Language showed normal medical receptionist medical assistant expression repetition naming. Insight and judgment is normal. Mood and affect appropriate. No hallucinations or delusions identified. CN II-XII: Pupils equal round minimally reactive about 3 mm. Status post IOLs. Fundi not seen. Visual marte appear intact. Extraocular muscles intact. No nystagmus. Motor and sensory function face normal. Hearing mildly decreased. Swallowing phonation head turning and tongue normal. Motor exam normal bulk tone and strength upper extremities. Legs are more difficult to evaluate. Right leg appears relatively normal. Left leg has some limitations. Part of it has to do with prior knee injury and arthritis and prior left ankle repair for fractures. See Station gait assessment below. Cerebellar testing showed no cogwheeling rigidity tremor bradykinesia or ataxia. Reflexes: Suppressed biceps and knees. Toes signs not tested at this time. Sensory exam showed the patient did respond to tactile and vibratory sense. He states that the bottom of his feet are numb and that he may have a peripheral neuropathy. Station gait shows that the patient is able to rise to standing position with mild difficulty. Positive Gilberto sign. When he walks he tends to lag behind with the left leg. His legs are able to maintain his weight. Flexion extension at the left knee and left ankle was limited due to prior injuries. Assessment and Plan Assessment and Plan (1) Transient left leg weakness: Status: Chronic Comment: 10/03/2024: Episodes of left leg weakness without pain and of 10 to 15 minutes duration. Plan: 1. Obtain EMG and nerve conduction studies of legs. 2. Patient to return to neurology clinic once the studies have been completed. Orders: Orders NCS and/or EMG - Left Lower and Right Lower Today R29.898 - Other symptoms and signs involving the musculoskeletal system Intake Vi (more content not included)... Normal [facility] COMPREHENSIVE METABOLIC PANE [place] 05-15-2024 Albumin [Mass/Vol] 4.0 g/dL Normal 3.6-5.1 [facility] Comment on above: Performed By: #### 1 0231, 686, 896 #### [facility] [address], [address] [place] [address] Park Aide: Kayode Victoria MD Albumin/Globulin [Mass ratio] 1.5 {ratio} Normal 1.0-2.5 [facility] Comment on above: Performed By: #### 1 0231, 3280, 315 #### [facility] [address], [address] [place] [address] Park Aide: Kayode Victoria MD ALP [Catalytic activity/Vol] 96 U/L Normal 35-144 [facility] Comment on above: Performed By: #### 1 0231, 8670, 896 #### [facility] [address], [address] [place] [address] Park Aide: Kayode Victoria MD ALT [Catalytic activity/Vol] 15 U/L Normal 9-46 [facility] Comment on above: Performed By: #### 1 230, 7599, 899 #### [facility] [place] [address] Park Aide: Kayode Victoria MD AST [Catalytic activity/Vol] 17 U/L Normal 10-35 [facility] Comment on above: Performed By: #### 1 230, 7599, 89 #### [facility] [place] [address] Park Aide: Kayode Victoria MD Bilirubin [Mass/Vol] 0.7 mg/dL Normal 0.2-1.2 [facility] Comment on above: Performed By: #### 1 230, 7599, #### [facility] [place] [address] Park Aide: Kayode Victoria MD BUN/CREATININE RATIO SEE NOTE: Normal 6-22 [facility] Comment on above: Result Comment: Not Reported: BUN and Creatinine are within reference range. Performed By: #### 1 230, 7599, 899 #### [facility] [place] [address] Park Aide: Kayode Victoria MD Calcium [Mass/Vol] 9.0 mg/dL Normal 8.6-10.3 [facility] Comment on above: Performed By: #### 1 230, 7599, 89 #### [facility] [place] [address] Park Aide: Kayode Victoria MD Chloride [Moles/Vol] 98 mmol/L Normal 98-110 [facility] Comment on above: Performed By: #### 1 230, 7599, 899 #### [facility] [place] [address] Park Aide: Kayode Victoria MD CO2 [Moles/Vol] 27 mmol/L Normal 20-32 [facility] Comment on above: Performed By: #### 1 230, 7599, 89 #### [facility] [place] [address] Park Aide: Kayode Victoria MD Creatinine [Mass/Vol] 1.00 mg/dL Normal 0.70-1.[address] [facility] Comment on above: Performed By: #### 1 230, 7599, 89 #### [facility] [place] [address] Park Aide: Kayode Victoria MD GFR/1.73 sq M.predicted among non-blacks MDRD (S/P/Bld) [Vol rate/Area] 77 mL/min/{1.73_m2} Normal > OR = 60 [facility] Comment on above: Performed By: #### 1 230, 7599, 89 #### [facility] [place] [address] Park Aide: Kayode Victoria MD Globulin (S) [Mass/Vol] 2.7 g/dL Normal 1.9-3.7 [facility] Comment on above: Performed By: #### 1 230, 7599, 899 #### [facility] [place] [address] Park Aide: Kayode Victoria MD Glucose [Mass/Vol] 104 mg/dL High 65-99 [facility] Comment on above: Result Comment: Fasting reference interval For someone without known diabetes, a glucose value between 100 and 125 mg/dL is consistent with prediabetes and should be confirmed with a follow-up test. Performed By: #### 1 230, 7599, 899 #### [facility] [place] [address] Park Aide: Kayode Victoria MD Potassium [Moles/Vol] 3.8 mmol/L Normal 3.5-5.[address] [facility] Comment on above: Performed By: #### 1 230, 7599, 899 #### [facility] [address] [address] Park Aide: Kayode Victoria MD Protein [Mass/Vol] 6.7 g/dL Normal 6.1-8.1 [facility] Comment on above: Performed By: #### 1 023, 7599, 899 #### [facility] [place] [address] Park Aide: Kayode Victoira MD Sodium [Moles/Vol] 134 mmol/L Low 135-146 [facility] Comment on above: Performed By: #### 1 023, 7599, 899 #### [facility] [place] [address] Park Aide: Kayode Victoria MD Urea nitrogen [Mass/Vol] 16 mg/dL Normal 7-25 [facility] Comment on above: Performed By: #### 1 230, 7599, 899 #### [facility] [place] [address] Park Aide: Kayode Victoria MD LIPID PANEL, [facility] 04-30 Cholesterol [Mass/Vol] 147 mg/dL Normal <200 [facility] Comment on above: Performed By: #### 1 023, 7599, 899 #### [facility] [place] [address] Park Aide: Kayode Victoria MD Cholesterol in HDL [Mass/Vol] 76 mg/dL Normal > OR = 40 [facility] Comment on above: Performed By: #### 1 023, 7599, 899 #### [facility] [place] [address] Park Aide: Kayode Victoria MD Cholesterol in LDL [Mass/Vol] 59 mg/dL Normal [facility] Comment on above: Result Comment: Refe rence range: <100 Desirable range <100 mg/dL for primary prevention; <70 mg/dL for patients with CHD or diabetic patients with > or = 2 CHD risk factors. LDL-C is now calculated using the Devonte-Perea calculation, which is a validated novel method providing better accuracy than the Friedewald equation in the estimation of LDL-C. Devonte SAN et al. SAAD. 2013;310(19): 7263-0091 (http://education.Dinnr/faq/JHK442) Performed By: #### 1 023, 0, 899 #### [facility] [place] [address] Park Aide: Kayode Victoria MD Cholesterol.total/Nakia sterol in HDL [Mass ratio] 1.9 {ratio} Normal <5.0 [facility] Comment on above: Performed By: #### 1 230, 7599, 899 #### [facility] [place] [address] Park Aide: Kayode Victoria MD NON HDL CHOLESTEROL 71 mg/dL (calc) Normal <130 [facility] Comment on above: Result Comment: For patients with diabetes plus 1 major ASCVD risk factor, treating to a non-HDL-C goal of <100 mg/dL (LDL-C of <70 mg/dL) is considered a therapeutic option. Performed By: #### 1 230, 7599, 899 #### [facility] [place] [address] Park Aide: Kayode Victoria MD Triglyceride [Mass/Vol] 43 mg/dL Normal <150 [facility] Comment on above: Performed By: #### 1 230, 7599, 899 #### [facility] [place] [address] Park Aide: Kayode Victoria MD TSHon 05-15-2024 TSH Qn 2.30 m[IU]/L Normal 0.40-4.50 [facility] Comment on above: Performed By: #### 1 230, 7599, 899 #### [facility] [place] [address] Park Aide: Kayode Victoria MD Laboratory - Chemistry and C hemistry - challengeon 05-14-2024 Albumin [Mass/Vol] 4.0 g/dL Normal 3.6 - 5.1 g/dL [facility], [facility].; [facility], [facility]. Albumin/Globulin [Mass ratio] 1.5 {ratio} Normal 1.0 - 2.5 [facility].; [facility], [facility]. ALP [Catalytic activity/Vol] 96 U/L Normal 35 - 144 U/L [facility], [facility].; [facility], [facility]. ALT [Catalytic activity/Vol] 15 U/L Normal 9 - 46 U/L [facility], [facility].; [facility], [facility]. AST [Catalytic activity/Vol] 17 U/L Normal 10 - 35 U/L [facility], [facility].; [facility], [facility]. Bilirubin [Mass/Vol] 0.7 mg/dL Normal 0.2 - 1 .2 mg/dL [facility], [facility].; [facility], [facility]. Calcium [Mass/Vol] 9.0 mg/dL Normal 8.6 - 10. 3 mg/dL [facility], [facility].; [facility], [facility]. Chloride [Moles/Vol] 98 mmol/L Normal 98 - 11 0 mmol/L [facility], [facility].; [facility], [facility]. Cholesterol [Mass/Vol] 147 mg/dL Normal [facility].; [facility], [facility]. Cholesterol in HDL [Mass/Vol] 76 mg/dL Normal [facility], [facility].; [facility], [facility]. Cholesterol in LDL [Mass/Vol] 59 mg/dL Normal [facility], [facility].; [facility], [facility]. CO2 [Moles/Vol] 27 mmol/L Normal 20 - 32 mmol/L [facility], [facility].; [place] [employer] [facility], [facility]. Creatinine [Mass/Vol] 1.00 mg/dL Normal 0.70 - 1.28 mg/dL [facility], [facility].; [facility], [facility]. GFR/1.73 sq M.predicted among non-blacks MDRD (S/P/Bld) [Vol rate/Area] 77 mL/min/{1.73_m2} Normal [facility], [facility].; [facility] Glucose [Mass/Vol] 104 mg/dL Abnormal 65 - 99 mg/dL [facility].; [facility], [facility]. Potassium [Moles/Vol] 3.8 mmol/L Normal 3.5 - 5.3 mmol/L [facility].; [facility], [facility]. Protein [Mass/Vol] 6.7 g/dL Normal 6.1 - 8.1 g/dL [facility], [facility].; [facility], [facility]. Sodium [Moles/Vol] 134 mmol/L Abnormal 135 - 146 mmol/L [facility].; [facility], [facility]. Triglyceride [Mass/Vol] 43 mg/dL Normal [facility].; [facility], [facility]. TSH Qn 2.30 m[IU]/L Normal 0.40 - 4.50 {mIU/L} [facility].; [facility], [facility]. Urea nitrogen [Mass/Vol] 16 mg/dL Normal 7 - 25 mg/dL [facility].; [facility], [facility]. No Panel Informationon 05-14 BUN/CREATININE RATIO SEE NOTE: Normal 6 - 22 [facility].; [facility], [facility]. CHOL/HDLC RATIO 1.9 Normal [facility], [facility].; [facility], [facility]. GLOBULIN 2.7 Normal 1.9 - 3.7 [facility].; [facility], [facility]. NON HDL CHOLESTEROL 71 Normal [facility] [place] [employer] [facility], [facility]. Orthopedic Visit Reporton Orthopedic Visit Report [facility] [address] [place] [address] OFFICE VISIT Date of Service: 04/29/24 MR#: [id number] Acct: [id number] Name: ELLIOTT CARMONA Rep #: [id number] : 1945 Provider: Dr. Hema Ureña MD Age/Sex: 79/M Location: [facility] Status: Signed Intake Vital Signs 03/11/24 11:35 Height 5 ft 10 in Weight: 231 lb 2 oz BMI 33.1 Intake Visit Reasons: LUMBAR SPINE Chief Complaint: lumbar spine Is patient in pain?: No Allergies No Known Allergies Allergy (Verified 04/29/24 08:52) Medications ???Medication ???Instructions ???Recorded ???Confirmed ???Type amlodipine 5 mg tablet 10 mg PO QHS 06/05/18 04/29/24 History aspirin 81 mg tablet,delayed 81 mg PO QHS 06/05/18 04/29/24 History release metoprolol tartrate 100 mg tablet 100 mg PO QHS 06/05/18 04/29/24 History atorvastatin 20 mg tablet 20 mg PO QHS 08/04/21 04/29/24 History tamsulosin 0.4 mg capsule (Flomax) 0.4 mg PO QHS 08/04/21 04/29/24 History acetaminophen 500 mg tablet 1,000 mg PO TID PRN Pain 08/12/21 04/29/24 History finasteride 5 mg tablet mg PO 05/30/23 04/29/24 History cod liver oil 1 cap PO ONCE 03/11/24 04/29/24 History fluticasone propionate 50 1 spray intranasal QDAY PRN 03/11/24 04/29/24 History mcg/actuation nasal spray,suspension (Flonase Allergy Relief) potassium chloride 20 mEq 40 meq PO DAILY 03/11/24 04/29/24 History tablet,extended release(part/cryst) (Klor-Con M) Have you fallen in the past year?: Yes PF[facility] Medical History Hx of reduction of closed dislocation 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 Loss of hearing Wears glasses Alcohol use Cancer Uses wheelchair Prostate disease Bladder disease Blood clot in vein Restless legs Easy bruising Back pain Injury of back Migraine headache Injury of head and neck TIA (transient ischemic attack) Loss of consciousness Syncope Former smoker History of edema History of stress test Hypertension Surgical History Hx of cystoscopy Hx of colonoscopy Social History Smoking Status: Current some day smoker tobacco type: smokeless tobacco HPI LUMBAR SPINE Chief Complaint: lumbar spine Details: This documentation accurately reflects the service provided and the decisions made by me, Dr. Hema Ureña MD 04/29/24 0851. Part of today???s visit was documented by [ ], acting as scribe. ELLIOTT CARMONA is a 79 year old M here today for lumbar spine MRI review. Pt. reports his left leg twitches intermittently throughout the night which has been going on for at least a year but he forgot to mention this in the past. 03/11/24: ELLIOTT CARMONA is a 79 year old M here today for lumbar pain. Patient had a fall in 11/29/23 and he fell straight back and landed on his back. Patient states he had bruising and pulled muscles. Patient did go to the ER and they did X-rays and nothing was broken. Patient was told if in a week to come back and get a MRI if he hadn't felt better. Patient states 5 days later he was feeling ok so he never went back. Patient has had a couple other falls. Patient states the pain this morning was in the center of his back and it was a 1/10. Patient denies any numbness,tingling or pain. Patient states when he back is at a flare up he notices that it will take his leg out from under him. Patient states its mostly the left leg but it has been the right sometimes. Patient knows he can't twist or his legs will give out. Patient uses a walker all the time to walk and he has a wheel chair. Says that he has used a cane for 10 years but has been using the walker recently for his balance. Patient hasn't had injection. Patient is in PT right now twice a week at [facility] in [place]. Patient is Ibuprofen as needed for pain. Patient states ice and heat don't help. Says that he does have some numbness in his feet, no diabetes. Believes he might have had a small stroke in the past but no formal diagnosis. He does not see neurology. Ortho Exam General General: Yes no acute distress Neurologic: Yes alert and Yes oriented x3 Spine SPINE TESTING CERVICAL THORACIC LUMBAR Musculoskeletal Strength 0=absent - 5=normal Details: Neurological exam of the lower and upper extremities shows 5x5 power. Reza's positive on left. Normal sensations across all dermatomes. Left knee reflexes brisk. No clonus. No midline or paraspinal tenderness. Patient has severe difficulty with balance and needed two-person support to go onto the exam table despite use of the walker. Coding Level of Care Code Off vis,est,level 4 Diagnoses Compression fracture of T12 vertebra, sequela S22.080S Encounter type: (more content not included)... Normal [facility] PSA,Total- Diagnosticon 03-31 PSA, DIAGNOSTIC 0.19 ng/mL Normal 0.0-4.0 [facility] Comment on above: Result Comment: This test was performed using the TPSA assay method for the garbs chemistry system. Values obtained with different assay methods cannot be used interchangably. When changing PSA assays in the course of monitoring a patient, additional sequential testing should be carried out to confirm baseline values. Performed By: #### L 501.9940 #### [facility] [address] [facility]. [place], [place], [address] Spine Thoracic (Routine)on 06-12-2023 Spine Thoracic (Routine) [facility] Imaging Services [address] [place], [place] [address] Spine Thoracic (Routine) MR#: [id number] Acct: [id number] Name: ELLIOTT CARMONA Rep #: [id number] : 1945 M 79 From: Chinmay Jones PCP: Dr. Alireza Gutierrez MD Status: [facility] Study: Spine Thoracic (Routine) Date of Exam: Exam# [id number] Ordering Dr: Hema Ureña MD -[id number] STUDY: MRI THORACIC SPINE WithoutCONTRAST REASON FOR EXAM: Male, 79 years old. pain TECHNIQUE: MRI examination of the thoracic spine obtained with a standard protocol including multiplanar multiecho noncontrastimaging. Contrast: No contrast administered. COMPARISON: MRI examination lumbar spine on 05/07/2023, plain film examination lumbar spine on 03/11/2024. FINDINGS: VERTEBRAL BODIES: 1. Vertebral body height and alignment are maintained throughout the thoracic spine, heterogeneous marrow signal is noted. There has been interval development of compression deformity at L1 with heterogeneous though mildly edematous marrow signal. No subluxation. There does appear to be of mild posterior retropulsion of the posterior aspect of L1. This has developed since the prior MRI of 05/07/2023. 2. There is no substantial scoliosis. 3. Benign appearing peripelvic RIGHT renal cyst. INTERVERTEBRAL DISC SPACES: T1-2, T2-3, T3-4, T4-5, T5-6, T6-7, T7-8, T8-9, T9-10, T10-11, T11-12: 1. Normal endplates. Multilevel disc desiccation. No evidence of acute disc herniation or acutely acquired canal stenosis. Marginal osteophyte formation is noted. 2. Incidental note of mild retropulsion of posterior aspect of the L1 vertebral body without evidence of alisson canal stenosis. SPINAL CORD: 1. Normal visualized thoracic cord. Normal conus medullaris that terminates at L1 . PARASPINOUS SOFT TISSUES: The soft tissue structures are unremarkable. MRI/Spine Thoracic (Routine) IMPRESSION: 1. Multilevel disc desiccation marginal osteophyte formation noted without evidence disc herniation or acutely acquired canal stenosis. 2. Interval development of deformity of the L1 vertebral body consistent with a subacute to chronic compression fracture with mild retropulsion of posterior element of L1 without evidence alisson canal stenosis. This has developed since the most recent MRI of the lumbar spine dated 05/07/2023. 3. Normal appearance of visualized spinal cord and conus. 4. Benign Bosniak type I peripelvic cyst in the RIGHT kidney. No follow-up acquired by consensus guidelines. Incidental Findings Reference Guidance And Recommendations: Renal cyst: Bosniak class I and II cysts are considered benign, and require no additional imaging follow-up based on consensus guidelines (JACR 2010; 7:753-773). Ovarian cyst: Pulmonary nodule: IVC follow-up: Electronically Signed: Chinmay Pride MD at 17:44 EST , CC: Dr. Hema Ureña MD; Dr. Alireza Gutierrez MD Paraplanner: Signed [facility] Cerv Spine 4 or 5 Viewson Cerv Spine 4 or 5 Views [facility] [address] [place] [address] Cerv Spine 4 or 5 Views MR#: [id number] Acct: [id number] Name: ELLIOTT CARMONA Rep #: [id number] : 1945 M 79 From: Laureano Owusu DO PCP: Dr. Alireza Gutierrez MD Status: DEP AMB Study: Cerv Spine 4 or 5 Views Date of Exam: 03/11/24 Exam# [id number] Ordering Dr: Niharika Ibarra -[id number] STUDY: X-RAY - CERVICAL SPINE REASON FOR EXAM: Male, 79 years old. neck pain -- please do upright AP, LAT, flex/ext TECHNIQUE: 4 view(s) of the cervical spine were obtained. COMPARISON: None FINDINGS: Normal anterior atlantoaxial articulation. Normal odontoid process. Normal cervical lordosis. Limited cervical flexion and extension. Normal vertebral bodies. Mild degenerative spurring at the lower cervical endplates. Normal disc space heights. Normal visualized intervertebral neuroforamina. The soft tissue structures are unremarkable. RAD/Cerv Spine 4 or 5 Views IMPRESSION: Degenerative changes of the visualized cervical spine. Electronically Signed: Laureano Owusu DO at 9:45 EST Reading Location ID and State: [facility] [place] Tel [phone], Service support , CC: MARTIN Conroy; Dr. Alireza Gutierrez MD Paraplanner: Signed [facility] L/S Spine Min 4 Viewson 02-28 L/S Spine Min 4 Views [facility] [address] [place] [address] L/S Spine Min 4 Views MR#: [id number] Acct: [id number] Name: ELLIOTT CARMONA Rep #: [id number] : 1945 M 79 From: Laureano Owusu DO PCP: Dr. Alireza Gutierrez MD Status: DEP AMB Study: L/S Spine Min 4 Views Date of Exam: 03/11/24 Exam# [id number] Ordering Dr: Niharika Ibarra -[id number] STUDY: X-RAY - LUMBAR SPINE REASON FOR EXAM: Male, 79 years old. back pain -- please do upright AP, LAT, flex/ext TECHNIQUE: 4 view(s) of the lumbar spine were obtained. COMPARISON: None FINDINGS: Normal lumbar lordosis. There is no substantial scoliosis. There is a normal alignment of the vertebrae. Degenerative changes of the vertebral bodies with spurring at the endplates. Focal sclerosis and mild compression of the T12 vertebral body. Normal disc space heights. The soft tissue structures are unremarkable. RAD/L/S Spine Min 4 Views IMPRESSION: Degenerative changes of the lumbar spine. Sclerosis and mild compression of T12. Correlate with MRI of needed. Electronically Signed: Laureano Owusu DO at 9:53 EST Reading Location ID and State: [facility] [place] Tel [phone], Service support , CC: MARTIN Conroy; Dr. Alireza Gutierrez MD Paraplanner: Signed Normal [facility] Orthopedic Visit Reporton Orthopedic Visit Report [facility] [address] [place] [address] [address] [place] [address] OFFICE VISIT Date of Service: 03/11/24 MR#: [id number] Acct: [id number] Name: ELLIOTT CARMONA Rep #: [id number] : 1945 Provider: Dr. Hema Ureña MD Age/Sex: 79/M Location: [facility] Status: Signed Intake Vital Signs 04/16/23 10:30 03/11/24 11:35 Height 5 ft 10 in 5 ft 10 in Weight: 222 lb 231 lb 2 oz BMI 31.8 33.1 Intake Visit Reasons: LUMBAR SPINE Accompanied by: Is patient in pain?: No Allergies No Known Allergies Allergy (Verified 03/11/24 11:41) Medications ???Medication ???Instructions ???Recorded ???Confirmed ???Type amlodipine 5 mg tablet 10 mg PO QHS 06/05/18 03/11/24 History aspirin 81 mg tablet,delayed 81 mg PO QHS 06/05/18 03/11/24 History release metoprolol tartrate 100 mg tablet 100 mg PO QHS 06/05/18 03/11/24 History atorvastatin 20 mg tablet 20 mg PO QHS 08/04/21 03/11/24 History tamsulosin 0.4 mg capsule (Flomax) 0.4 mg PO QHS 08/04/21 03/11/24 History acetaminophen 500 mg tablet 1,000 mg PO TID PRN Pain 08/12/21 03/11/24 History finasteride 5 mg tablet mg PO 05/30/23 03/11/24 History cod liver oil 1 cap PO ONCE 03/11/24 03/11/24 History fluticasone propionate 50 1 spray intranasal QDAY PRN 03/11/24 03/11/24 History mcg/actuation nasal spray,suspension (Flonase Allergy Relief) potassium chloride 20 mEq 40 meq PO DAILY 03/11/24 03/11/24 History tablet,extended release(part/cryst) (Klor-Con M) Have you [facility] in the past year?: [facility] Hx of reduction of closed dislocation 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 Loss of hearing Wears glasses Alcohol use Cancer Uses wheelchair Prostate disease Bladder disease Blood clot in vein Restless legs Easy bruising Back pain Injury of back Migraine headache Injury of head and neck TIA (transient ischemic attack) Loss of consciousness Syncope Former smoker History of edema History of stress test Hypertension Surgical History Hx of cystoscopy Hx of colonoscopy Social History Smoking Status: Current some day smoker tobacco type: smokeless tobacco HPI LUMBAR SPINE Details: This documentation accurately reflects the service provided and the decisions made by me, Dr. Hema Ureña MD 03/11/24 1135. Part of today???s visit was documented by Vee CABRERA , acting as scribe. ELLIOTT CARMONA is a 79 year old M here today for lumbar pain. Patient had a fall in 11/29/23 and he fell straight back and landed on his back. Patient states he had bruising and pulled muscles. Patient did go to the ER and they did X-rays and nothing was broken. Patient was told if in a week to come back and get a MRI if he hadn't felt better. Patient states 5 days later he was feeling ok so he never went back. Patient has had a couple other falls. Patient states the pain this morning was in the center of his back and it was a 1/10. Patient denies any numbness,tingling or pain. Patient states when he back is at a flare up he notices that it will take his leg out from under him. Patient states its mostly the left leg but it has been the right sometimes. Patient knows he can't twist or his legs will give out. Patient uses a walker all the time to walk and he has a wheel chair. Says that he has used a cane for 10 years but has been using the walker recently for his balance. Patient hasn't had injection. Patient is in PT right now twice a week at [facility] in [place]. Patient is Ibuprofen as needed for pain. Patient states ice and heat don't help. Says that he does have some numbness in his feet, no diabetes. Believes he might have had a small stroke in the past but no formal diagnosis. He does not see neurology. Ortho Exam General General: Yes no acute distress Neurologic: Yes alert and Yes oriented x3 Spine SPINE TESTING CERVICAL THORACIC LUMBAR Musculoskeletal Strength 0=absent - 5=normal Details: Neurological exam of the lower and upper extremities shows 5x5 power. Reza's positive on left. Normal sensations across all dermatomes. Left knee reflexes brisk. No clonus. No midline or paraspinal tenderness. Patient has severe difficulty with balance and needed two-person support to go onto the exam table despite use of the walker. Coding Level of Care Code Off vis,est,level 5 Diagnoses Balance disorder R26.89 Myelopathy G95.9 Compression fracture of T12 vertebra, sequela S22.080S Encounter type: sequela Time Spent (min) 45 Assessment and Plan Assessment and Plan (1) Balance disorder: Status: Acute (2) Myelopathy: Status: Acute (3) T12 compression fra (more content not included)... Normal [facility] HIP COMPLETE LT MIN 2 VIEWS W/PELVISon 12-05-2023 HIP COMPLETE LT MIN 2 VIEWS W/PELVIS [place] [address] Patient: ELLIOTT CARMONA Phone#: : 1945 Age: 78 Gender: M Pt. Type: Out Account: [id number] Location: [facility] Ordering: ALIREZA GUTIERREZ Exam Date: 12/05/2023/14:08 Family Phys: Charge Code: [id number] Physician: [place] Order #: [id number] Dose#: PROCEDURE: X-RAY HIP LT COMPLETE MIN 2 VIEWS W/PELVIS COMPARISON: None. INDICATIONS: Left Hip Pain. FINDINGS: BONES: Mild degenerative changes of the hip are present. Degenerative changes of the SI joints are present bilaterally. Degenerative change at the lumbar spine is present. SOFT TISSUES: Negative. No visible soft tissue swelling. EFFUSION: None visible. OTHER: Suprapubic densities are present correlate with prostate attic implants. CONCLUSION: 1. There is no evidence of acute abnormality. Dictated by: Debra Meehan MD on 12/05/2023 at 14:32 Approved by: Debra Meehan MD on 12/05/2023 at 14:34 Normal [facility] CBC (INCLUDES DIFF/PLT)on Basophils (Bld) [#/Vol] 0.038 10*3/uL Normal 0-200 [facility] Comment on above: Performed By: #### 6 399 #### [facility] [place] [address] [address] Aide: Kayode Victoria MD Basophils/100 WBC (Bld) 0.5 % Normal [facility] Comment on above: Performed By: #### 6 399 #### [facility] [place] [address] [address] Aide: Kayode Victoria MD Eosinophils (Bld) [#/Vol] 0.218 10*3/uL Normal 15-500 [facility] Comment on above: Performed By: #### 6 399 #### [facility] [place] [address] [address] Aide: Kayode Victoria MD Eosinophils/100 WBC (Bld) 2.9 % Normal [facility] Comment on above: Performed By: #### 6 399 #### [facility] [place] [address] [address] Aide: Kayode Victoria MD Erythrocyte distribution width (RBC) [Ratio] 12.2 % Normal 11.0-15.0 [facility] Comment on above: Performed By: #### 6 399 #### [facility] [place] [address] [address] Aide: Kayode Victoria MD Hematocrit (Bld) [Volume fraction] 44.1 % Normal 38.5-50.0 [facility] Comment on above: Performed By: #### 6 399 #### [facility] [place] [address] [address] Aide: Kayode Victoria MD Hemoglobin (Bld) [Mass/Vol] 14.6 g/dL Normal 13.2-17.1 [facility] Comment on above: Performed By: #### 6 399 #### [facility] [place] [address] [address] Aide: Kayode Victoria MD Lymphocytes (Bld) [#/Vol] 0.908 10*3/uL Normal 850-3900 [facility] Comment on above: Performed By: #### 6 399 #### [facility] [place] [address] [address] Aide: Kayode Victoria MD Lymphocytes/100 WBC (Bld) 12.1 % Normal [facility] Comment on above: Performed By: #### 6 399 #### [facility] [place] [address] [address] Aide: Kayode Victoria MD MCH (RBC) [Entitic mass] 32.4 pg Normal 27.0-33.0 [facility] Comment on above: Performed By: #### 6 399 #### [facility] [place] [address] [address] Aide: Kayode Victoria MD MCHC (RBC) [Mass/Vol] 33.1 g/dL Normal 32.0-36.[address] [facility] Comment on above: Performed By: #### 6 399 #### [facility] [place] [address] [address] Aide: Kayode Victoria MD MCV (RBC) [Entitic vol] 97.8 fL Normal 80.0-100.0 [facility] Comment on above: Performed By: #### 6 399 #### [facility] [place] [address] [address] Aide: Kayode Victoria MD Monocytes (Bld) [#/Vol] 0.75 10*3/uL Normal 200-950 [facility] Comment on above: Performed By: #### 6 399 #### [facility] [place] [address] [address] Aide: Kayode Victoria MD Monocytes/100 WBC (Bld) 10.0 % Normal [facility] Comment on above: Performed By: #### 6 399 #### [facility] [place] [address] [address] Aide: Kayode Victoria MD Neutrophils (Bld) [#/Vol] 5.588 10*3/uL Normal 3570-8272 [facility] Comment on above: Performed By: #### 6 399 #### [facility] [place] [address] [address] Aide: Kayode Victoria MD Neutrophils/100 WBC (Bld) 74.5 % Normal [facility] Comment on above: Performed By: #### 6 399 #### [facility] [place] [address] [address] Aide: Kayode Victoria MD Platelet mean volume (Bld) [Entitic vol] 9.9 fL Normal 7.5-12.5 [facility] Comment on above: Performed By: #### 6 399 #### [facility] [place] [address] [address] Aide: Kayode Victoria MD Platelets (Bld) [#/Vol] 192 10*3/uL Normal 140-400 [facility] Comment on above: Performed By: #### 6 399 #### [facility] [place] [address] [address] Aide: Kayode Victoria MD RBC (Bld) [#/Vol] 4.51 10*6/uL Normal 4.20-5.80 [facility] Comment on above: Performed By: #### 6 399 #### [facility] [place] [address] [address] Aide: Kayode Victoria MD WBC (Bld) [#/Vol] 7.5 10*3/uL Normal 3.8-10.8 [facility] Comment on above: Performed By: #### 6 399 #### [facility] [place] [address] [address] Aide: Kayode Victoria MD TSHon 11-15-2023 TSH Qn 2.16 m[IU]/L Normal 0.40-4.50 [facility] Comment on above: Performed By: #### 6 399 #### [facility] [address] [place] [address] Park Aide: Kayode Victoria MD Laboratory - Chemistry and C hemistry - challengeon 11-14-2023 TSH Qn 2.16 m[IU]/L Normal 0.40 - 4.50 {mIU/L} [employer] [facility], [employer]. Laboratory - Hematology and Cell countson 11-14-2023 Basophils (Bld) [#/Vol] 0.038 10*3/uL Normal 0 - 200 {cells/uL} [employer], [employer], [employer]. Basophils/100 WBC (Bld) 0.5 % Normal [facility] [employer], [employer]. Eosinophils (Bld) [#/Vol] 0.218 10*3/uL Normal 15 - 500 {cells/uL} [employer], [employer]. Eosinophils/100 WBC (Bld) 2.9 % Normal [employer] Erythrocyte distribution width (RBC) [Ratio] 12.2 % Normal 11.0 - 15.0 % [employer], [employer]. Hematocrit (Bld) [Volume fraction] 44.1 % Normal 38.5 - 50.0 % [employer], [employer]. Hemoglobin (Bld) [Mass/Vol] 14.6 g/dL Normal 13.2 - 17.1 g/dL [employer], [employer]. Lymphocytes (Bld) [#/Vol] 0.908 10*3/uL Normal 850 - 3900 {cells/uL} [employer], [employer]. Lymphocytes/100 WBC (Bld) 12.1 % Normal [employer], [employer]. MCH (RBC) [Entitic mass] 32.4 pg Normal 27.0 - 33.0 pg [employer], [employer]. MCHC (RBC) [Mass/Vol] 33.1 g/dL Normal 32.0 - 36.0 g/dL [facility].; [facility], [facility]. MCV (RBC) [Entitic vol] 97.8 fL Normal 80.0 - 100.0 fL [facility] [employer] [facility].; [facility], [facility]. Monocytes (Bld) [#/Vol] 0.75 10*3/uL Normal 200 - 950 {cells/uL} [facility], [facility].; [facility], [employer]. Monocytes/100 WBC (Bld) 10.0 % Normal [facility] [place] [employer] [facility].; [facility], [facility]. Neutrophils (Bld) [#/Vol] 5.588 10*3/uL Normal 1500 - 7800 {cells/uL} [facility] [place] [employer] [facility].; [facility], [facility]. Neutrophils/100 WBC (Bld) 74.5 % Normal [facility] [place] [employer] [facility].; [place] [employer], [facility] Platelet mean volume (Bld) [Entitic vol] 9.9 fL Normal 7.5 - 12.5 fL [facility].; [place] [employer], [facility]. Platelets (Bld) [#/Vol] 192 10*3/uL Normal 140 - 400 [facility] [place] [employer] [facility].; [facility], [facility]. RBC (Bld) [#/Vol] 4.51 10*6/uL Normal 4.20 - 5.8 0 {Million/uL} [facility] [place] [employer] [facility].; [place] [employer], [employer]. WBC (Bld) [#/Vol] 7.5 10*3/uL Normal 3.8 - 10.8 [facility] [place] [employer] [facility].; [place] [employer], [facility]. Laboratory - Chemistry and C hemistry - challengeon 05-08-2023 Albumin [Mass/Vol] 4.2 g/dL Normal 3.6 - 5.1 g/dL [facility] [place] [employer] [facility].; [place] [employer], [facility]. Albumin/Globulin [Mass ratio] 1.4 {ratio} Normal 1.0 - 2.5 [facility] [place] [employer] [facility].; [place] [employer], [employer]. ALP [Catalytic activity/Vol] 86 U/L Normal 35 - 144 U/L [facility] [place] [employer] [facility].; [place] [employer], [employer]. ALT [Catalytic activity/Vol] 18 U/L Normal 9 - 46 U/L [facility], [facility].; [facility], [facility]. AST [Catalytic activity/Vol] 18 U/L Normal 10 - 35 U/L [facility].; [facility], [facility]. Bilirubin [Mass/Vol] 0.7 mg/dL Normal 0.2 - 1 .2 mg/dL [facility], [facility].; [facility], [facility] Calcium [Mass/Vol] 9.0 mg/dL Normal 8.6 - 10. 3 mg/dL [facility], [facility].; [facility], [facility]. Chloride [Moles/Vol] 94 mmol/L Abnormal 98 - 11 0 mmol/L [facility], [facility].; [facility], [facility]. Cholesterol [Mass/Vol] 153 mg/dL Normal [facility]; [facility], [facility] Cholesterol in HDL [Mass/Vol] 84 mg/dL Normal [facility].; [facility], [facility] Cholesterol in LDL [Mass/Vol] 56 mg/dL Normal [facility], [facility].; [facility], [facility]. CO2 [Moles/Vol] 25 mmol/L Normal 20 - 32 mmol/L [facility], [facility].; [facility], [facility]. Creatinine [Mass/Vol] 0.89 mg/dL Normal 0.70 - 1.28 mg/dL [facility], [facility].; [facility], [facility]. GFR/1.73 sq M.predicted among non-blacks MDRD (S/P/Bld) [Vol rate/Area] 88 mL/min/{1.73_m2} Normal [facility], [facility].; [facility] Glucose [Mass/Vol] 91 mg/dL Normal 65 - 99 mg/dL [facility].; [facility], [facility]. Potassium [Moles/Vol] 3.9 mmol/L Normal 3.5 - 5.3 mmol/L [facility], [facility].; [facility] Protein [Mass/Vol] 7.1 g/dL Normal 6.1 - 8.1 g/dL [facility], [facility].; [facility] Sodium [Moles/Vol] 131 mmol/L Abnormal 135 - 146 mmol/L [facility] [place] [employer] [facility].; [employer]. Triglyceride [Mass/Vol] 47 mg/dL Normal [facility] [employer] [facility].; [employer] [facility], [employer]. Urea nitrogen [Mass/Vol] 12 mg/dL Normal 7 - 25 mg/dL [facility] [place] [employer] [facility].; [employer]. No Panel Informationon 05-08 BUN/CREATININE RATIO SEE NOTE: Normal 6 - 22 [facility].; [employer], [employer]. CHOL/HDLC RATIO 1.8 Normal [facility] [employer] [facility].; [place] [employer], [employer]. GLOBULIN 2.9 Normal 1.9 - 3.7 [facility] [place] [employer] [facility].; [employer]. NON HDL CHOLESTEROL 69 Normal [facility] [place] [employer] [facility].; [employer]. No Panel InformationOrdered By: Prasad Pitt on 04-13-2023 Prostate Specific Antigen Total 0.54 ng/mL 0.0-4.0 [facility] Comment on above: This test was perfor med using the TPSA assay method for the[facility] chemistry system. Values obtained with differentassay methods cannot be used interchangably.When changing PSA assays in the course of monitoring apatient, additional sequential testing should be carriedout to confirm baseline values. Basophil percentageOrdered B y: Dr. Pitt on 05-11-2022 Basophil percentage < 0.9 mg/dL 0.70-1.30 [facility] No Panel InformationOrdered By: Dr. Pitt on 05-11-2022 Bedside Estimated GFR (eGFR) > 60.0000 mL/min >60 [facility] Laboratory - Chemistry and C hemistry - challengeon 05-10-2022 Albumin [Mass/Vol] 4.1 g/dL Normal 3.6 - 5.1 g/dL [facility].; [employer], [employer]. Albumin/Globulin [Mass ratio] 1.5 {ratio} Normal 1.0 - 2.5 [place] [employer] [facility] [employer] [facility].; [employer], [employer]. ALP [Catalytic activity/Vol] 97 U/L Normal 35 - 144 U/L [place] [employer].; [employer], [employer]. ALT [Catalytic activity/Vol] 14 U/L Normal 9 - 46 U/L [facility].; [facility], [facility]. AST [Catalytic activity/Vol] 15 U/L Normal 10 - 35 U/L [facility].; [facility], [facility]. Bilirubin [Mass/Vol] 0.6 mg/dL Normal 0.2 - 1 .2 mg/dL [facility].; [facility], [facility] Calcium [Mass/Vol] 9.0 mg/dL Normal 8.6 - 10. 3 mg/dL [facility].; [facility], [facility] Chloride [Moles/Vol] 98 mmol/L Normal 98 - 11 0 mmol/L [facility].; [facility], [facility]. Cholesterol [Mass/Vol] 143 mg/dL Normal [facility]; [facility], [facility] Cholesterol in HDL [Mass/Vol] 64 mg/dL Normal [facility].; [facility], [facility] Cholesterol in LDL [Mass/Vol] 65 mg/dL Normal [facility].; [facility], [facility]. CO2 [Moles/Vol] 28 mmol/L Normal 20 - 32 mmol/L [facility]; [facility], [facility]. Creatinine [Mass/Vol] 0.89 mg/dL Normal 0.70 - 1.28 mg/dL [facility], [facility].; [facility], [facility]. GFR/1.73 sq M.predicted among non-blacks MDRD (S/P/Bld) [Vol rate/Area] 88 mL/min/{1.73_m2} Normal [facility], [facility].; [facility], [facility]. Glucose [Mass/Vol] 102 mg/dL Abnormal 65 - 99 mg/dL [facility].; [facility], [facility]. Potassium [Moles/Vol] 3.9 mmol/L Normal 3.5 - 5.3 mmol/L [facility], [facility].; [facility], [facility]. Protein [Mass/Vol] 6.8 g/dL Normal 6.1 - 8.1 g/dL [facility], [facility].; [facility], [facility]. Sodium [Moles/Vol] 136 mmol/L Normal 135 - 146 mmol/L [facility].; [facility] [place] [employer] [facility] Triglyceride [Mass/Vol] 62 mg/dL Normal H [facility]; [facility] [place] [employer] [facility] Urea nitrogen [Mass/Vol] 10 mg/dL Normal 7 - 25 mg/dL [facility]; [facility] [place] [employer] [facility] No Panel Informationon 05-10 BUN/CREATININE RATIO NOT APPLICABLE Normal 6 - 22 [facility]; [facility] [place] [employer] [facility]. CHOL/HDLC RATIO 2.2 Normal [facility]; [facility] [place] [employer] [facility]. GLOBULIN 2.7 Normal 1.9 - 3.7 [facility]; [facility] [place] [employer] [facility] NON HDL CHOLESTEROL 79 Normal [facility]; [facility] [place] [employer] [facility] PSA, TOTAL 0.57 ng/mL Normal [facility]; [facility] [place] [employer] [facility] No Panel InformationOrdered By: Dr. Pitt on 04-05-2022 Prostate Specific Antigen Total 0.63 ng/mL 0.0-4.0 [facility] Comment on above: This test was perfor med using the TPSA assay method for the[employer] chemistry system. Values obtained with differentassay methods cannot be used interchangably.When changing PSA assays in the course of monitoring apatient, additional sequential testing should be carriedout to confirm baseline values. INR in Blood by Coagulation assayon 08-05-2021 INR Coag (Bld) [Relative time] 1.1 {INR} [facility] Work Phone: Laboratory - Coagulationon 0 08-05-2021 aPTT Coag (Bld) [Time] 26.6 s 24.1-36.2 [facility] Work Phone: PT Coag (PPP) [Time] 13.4 s 11.7-14.9 [facility] Work Phone: Laboratory - Chemistry and C hemistry - challengeon 04-01-2021 Albumin [Mass/Vol] 4.3 g/dL Normal 3.6 - 5.1 g/dL [facility] [place] [employer] [facility]; [facility], [facility]. Albumin/Globulin [Mass ratio] 1.7 {ratio} Normal 1.0 - 2.5 [facility], [facility].; [facility], [facility]. ALP [Catalytic activity/Vol] 79 U/L Normal 35 - 144 U/L [facility], [facility].; [facility], [facility]. ALT [Catalytic activity/Vol] 29 U/L Normal 9 - 46 U/L [facility], [facility].; [facility], [facility]. AST [Catalytic activity/Vol] 26 U/L Normal 10 - 35 U/L [facility], [facility].; [facility], [facility]. Bilirubin [Mass/Vol] 0.9 mg/dL Normal 0.2 - 1 .2 mg/dL [facility], [facility].; [facility], [facility]. Calcium [Mass/Vol] 9.0 mg/dL Normal 8.6 - 10. 3 mg/dL [facility], [facility].; [facility], [facility]. Chloride [Moles/Vol] 95 mmol/L Abnormal 98 - 11 0 mmol/L [facility], [facility].; [facility], [facility]. Cholesterol [Mass/Vol] 148 mg/dL Normal [facility].; [facility], [facility] Cholesterol in HDL [Mass/Vol] 89 mg/dL Normal [facility], [facility].; [facility], [facility]. Cholesterol in LDL [Mass/Vol] 51 mg/dL Normal [facility], [facility].; [facility], [facility]. CO2 [Moles/Vol] 24 mmol/L Normal 20 - 32 mmol/L [facility], [facility].; [facility], [facility]. Creatinine [Mass/Vol] 0.85 mg/dL Normal 0.70 - 1.18 mg/dL [facility], [facility].; [facility], [facility]. GFR/1.73 sq M.predicted among blacks MDRD (S/P/Bld) [Vol rate/Area] 98 mL/min/{1.73_m2} Normal [facility], [facility].; [place] [employer] [facility] Glucose [Mass/Vol] 99 mg/dL Normal 65 - 99 mg/dL [facility].; [facility], [facility] Potassium [Moles/Vol] 4.2 mmol/L Normal 3.5 - 5.3 mmol/L [facility]; [facility] [place] [employer] [facility] Protein [Mass/Vol] 6.8 g/dL Normal 6.1 - 8.1 g/dL [facility] [place] [employer] [facility]; [place] [employer] [facility], [facility] Sodium [Moles/Vol] 130 mmol/L Abnormal 135 - 146 mmol/L [facility] [place] [employer] [facility]; [facility] [place] [employer] [facility] Triglyceride [Mass/Vol] 27 mg/dL Normal [facility]; [place] [employer] [facility] [employer] [facility] Urea nitrogen [Mass/Vol] 11 mg/dL Normal 7 - 25 mg/dL [facility] [place] [employer] [facility]; [facility] [place] [employer] [facility] No Panel Informationon 04-01 BUN/CREATININE RATIO NOT APPLICABLE Normal [facility]; [place] [employer] [facility], [facility] CHOL/HDLC RATIO 1.7 Normal [facility]; [facility] [place] [employer] [facility] eGFR NON-AFR. [place] 85 Normal [facility] [employer] [facility]; [place] [employer] [facility] [employer] [facility] GLOBULIN 2.5 Normal 1.9 - 3.7 [facility] [employer] [facility]; [facility] [place] [employer] [facility] NON HDL CHOLESTEROL 59 Normal [facility]; [place] [employer] [facility] [employer] [facility] Laboratory - Chemistry and C hemistry - challengeon 10-19-2020 TSH Qn 3.86 m[IU]/L Normal 0.40 - 4.50 {mIU/L} [facility] [employer] [facility]; [place] [employer] [facility] Laboratory - Hematology and Cell countson 10-19-2020 Basophils (Bld) [#/Vol] 0.05 10*3/uL Normal 0 - 200 {cells/uL} [facility] [employer] [facility].; [place] [employer] [facility], [facility] Basophils/100 WBC (Bld) 0.7 % Normal [facility].; [facility], [facility] Eosinophils (Bld) [#/Vol] 0.22 10*3/uL Normal 15 - 500 {cells/uL} [facility] [employer] [facility].; [place] [employer] Eosinophils/100 WBC (Bld) 3.1 % Normal [facility].; [facility] [employer] [facility] Erythrocyte distribution width (RBC) [Ratio] 12.1 % Normal 11.0 - 15.0 % [facility].; [facility], [facility] Hematocrit (Bld) [Volume fraction] 44.9 % Normal 38.5 - 50.0 % [facility], [facility].; [facility], [facility] Hemoglobin (Bld) [Mass/Vol] 15.3 g/dL Normal 13.2 - 17.1 g/dL [facility].; [facility], [facility] Lymphocytes (Bld) [#/Vol] 1.235 10*3/uL Normal 850 - 3900 {cells/uL} [facility] [employer] [facility].; [facility], [facility] Lymphocytes/100 WBC (Bld) 17.4 % Normal [facility].; [facility], [facility] MCH (RBC) [Entitic mass] 32.3 pg Normal 27.0 - 33.0 pg [facility] [employer] [facility].; [facility], [facility]. MCHC (RBC) [Mass/Vol] 34.1 g/dL Normal 32.0 - 36.0 g/dL [facility] [place] [employer] [facility].; [facility], [facility]. MCV (RBC) [Entitic vol] 94.7 fL Normal 80.0 - 100.0 fL [facility] [place] [employer] [facility].; [facility], [facility]. Monocytes (Bld) [#/Vol] 0.973 10*3/uL Abnormal 200 - 950 {cells/uL} [facility], [facility].; [facility], [facility]. Monocytes/100 WBC (Bld) 13.7 % Normal [facility] [employer] [facility].; [facility], [facility]. Neutrophils (Bld) [#/Vol] 4.622 10*3/uL Normal 1500 - 7800 {cells/uL} [facility] [place] [employer] [facility].; [facility], [facility]. Neutrophils/100 WBC (Bld) 65.1 % Normal [facility] [place] [employer] [facility].; [facility], [facility] Platelet mean volume (Bld) [Entitic vol] 9.8 fL Normal 7.5 - 12.5 fL [facility] [employer] [facility].; [facility] Platelets (Bld) [#/Vol] 154 10*3/uL Normal 140 - 400 [facility] [place] [employer] [facility].; [facility], [facility]. RBC (Bld) [#/Vol] 4.74 10*6/uL Normal 4.20 - 5.8 0 {Million/uL} [facility], [facility].; [place] [employer] [facility], [facility]. WBC (Bld) [#/Vol] 7.1 10*3/uL Normal 3.8 - 10.8 [facility] [employer] [facility].; [place] [employer] [facility], [facility]. Laboratory - Chemistry and C hemistry - challengeon 04-13-2020 Albumin [Mass/Vol] 4.1 g/dL Normal 3.6 - 5.1 g/dL [facility] [employer] [facility].; [facility], [facility]. Albumin/Globulin [Mass ratio] 1.6 {ratio} Normal 1.0 - 2.5 [facility], [facility].; [place] [employer], [employer]. ALP [Catalytic activity/Vol] 80 U/L Normal 35 - 144 U/L [facility] [employer] [facility].; [place] [employer] ALT [Catalytic activity/Vol] 20 U/L Normal 9 - 46 U/L [facility] [place] [employer] [facility].; [place] [employer], [employer]. AST [Catalytic activity/Vol] 20 U/L Normal 10 - 35 U/L [facility] [place] [employer] [facility].; [place] [employer], [employer]. Bilirubin [Mass/Vol] 0.7 mg/dL Normal 0.2 - 1 .2 mg/dL [facility], [facility].; [place] [employer] Calcium [Mass/Vol] 9.1 mg/dL Normal 8.6 - 10. 3 mg/dL [facility], [facility].; [place] [employer], [facility]. Chloride [Moles/Vol] 99 mmol/L Normal 98 - 11 0 mmol/L [facility], [facility].; [employer] Cholesterol [Mass/Vol] 170 mg/dL Normal [facility], [facility].; [place] [employer] Cholesterol in HDL [Mass/Vol] 83 mg/dL Normal [facility], [facility].; [place] [employer] Cholesterol in LDL [Mass/Vol] 76 mg/dL Normal [facility], [facility].; [facility], [facility]. CO2 [Moles/Vol] 29 mmol/L Normal 20 - 32 mmol/L [facility].; [facility], [facility] Creatinine [Mass/Vol] 0.88 mg/dL Normal 0.70 - 1.18 mg/dL [facility].; [facility], [facility] GFR/1.73 sq M.predicted among blacks MDRD (S/P/Bld) [Vol rate/Area] 97 mL/min/{1.73_m2} Normal [facility].; [facility], [facility] Glucose [Mass/Vol] 111 mg/dL Abnormal 65 - 99 mg/dL [facility].; [facility], [facility] Potassium [Moles/Vol] 4.2 mmol/L Normal 3.5 - 5.3 mmol/L [facility].; [facility], [facility] Protein [Mass/Vol] 6.7 g/dL Normal 6.1 - 8.1 g/dL [facility].; [facility], [facility] Sodium [Moles/Vol] 135 mmol/L Normal 135 - 146 mmol/L [facility].; [facility], [facility] Triglyceride [Mass/Vol] 40 mg/dL Normal [facility].; [facility], [facility] Urea nitrogen [Mass/Vol] 9 mg/dL Normal 7 - 25 mg/dL [facility], [facility].; [facility], [facility] No Panel Informationon 04-13 BUN/CREATININE RATIO NOT APPLICABLE Normal 6 - 22 [facility].; [facility], [facility] CHOL/HDLC RATIO 2.0 Normal [facility].; [facility], [facility] eGFR NON-AFR. [place] 84 Normal [facility].; [facility], [facility] GLOBULIN 2.6 Normal 1.9 - 3.7 [facility].; [facility], [facility] NON HDL CHOLESTEROL 87 Normal [facility], [facility].; [facility], [facility] Laboratory - Chemistry and C hemistry - challengeon 04-04-2019 Albumin [Mass/Vol] 4.0 g/dL Normal 3.6 - 5.1 g/dL [facility].; [facility], [facility] Albumin/Globulin [Mass ratio] 1.6 {ratio} Normal 1.0 - 2.5 [facility]; [facility], [facility] ALP [Catalytic activity/Vol] 99 U/L Normal 40 - 115 U/L [facility].; [facility], [facility] ALT [Catalytic activity/Vol] 14 U/L Normal 9 - 46 U/L [facility].; [facility], [facility]. AST [Catalytic activity/Vol] 13 U/L Normal 10 - 35 U/L [facility].; [facility], [facility] Bilirubin [Mass/Vol] 0.6 mg/dL Normal 0.2 - 1 .2 mg/dL [facility]; [facility], [facility] Calcium [Mass/Vol] 9.0 mg/dL Normal 8.6 - 10. 3 mg/dL [facility].; [facility], [facility] Chloride [Moles/Vol] 102 mmol/L Normal 98 - 11 0 mmol/L [facility] [facility].; [facility] Cholesterol [Mass/Vol] 208 mg/dL Abnormal [facility]; [facility] Cholesterol in HDL [Mass/Vol] 51 mg/dL Normal [facility]; [facility] [place] Cholesterol in LDL [Mass/Vol] 137 mg/dL Abnormal [facility]; [facility] CO2 [Moles/Vol] 30 mmol/L Normal 20 - 32 mmol/L [facility].; [facility]. Creatinine [Mass/Vol] 0.81 mg/dL Normal 0.70 - 1.18 mg/dL [facility]; [facility] [place]. GFR/1.73 sq M.predicted among blacks MDRD (S/P/Bld) [Vol rate/Area] 101 mL/min/{1.73_m2} Normal [facility].; [facility] Glucose [Mass/Vol] 100 mg/dL Abnormal 65 - 99 mg/dL [facility]; [facility] [place]. Potassium [Moles/Vol] 4.1 mmol/L Normal 3.5 - 5.3 mmol/L [facility]; [place] [employer] Protein [Mass/Vol] 6.5 g/dL Normal 6.1 - 8.1 g/dL [facility]; [place] Sodium [Moles/Vol] 138 mmol/L Normal 135 - 146 mmol/L [facility]; [place] Triglyceride [Mass/Vol] 102 mg/dL [facility]; [place] [employer] [facility] Urea nitrogen [Mass/Vol] 12 mg/dL Normal 7 - 25 mg/dL [facility] [employer] [facility]; [place] [employer] [facility] No Panel Informationon 04-04 BUN/CREATININE RATIO NOT APPLICABLE Normal 6 - 22 [facility]; [place] CHOL/HDLC RATIO 4.1 Normal [facility] [employer] [facility]; [place] eGFR NON-AFR. [place] 88 Normal [facility]; [place] [employer] [facility] GLOBULIN 2.5 Normal 1.9 - 3.7 [facility]; [place] NON HDL CHOLESTEROL 157 Abnormal [facility]; [employer] [facility] - Chemistry and C hemistry - challengeon 04-12-2018 Albumin [Mass/Vol] 4.2 g/dL Normal 3.6 - 5.1 g/dL [facility] [employer] [facility].; [place] [employer] [facility] Albumin/Globulin [Mass ratio] 1.6 {ratio} Normal 1.0 - 2.5 [facility] [employer] [facility].; [place] [employer]. ALP [Catalytic activity/Vol] 93 U/L Normal 40 - 115 U/L [facility] [employer] [facility].; [place] [employer]. ALT [Catalytic activity/Vol] 29 U/L Normal 9 - 46 U/L [facility] [employer] [facility].; [place] [employer]. AST [Catalytic activity/Vol] 29 U/L Normal 10 - 35 U/L [facility] [employer] [facility].; [place] [employer]. Bilirubin [Mass/Vol] 0.7 mg/dL Normal 0.2 - 1 .2 mg/dL [facility] [place].; [facility] [place]. Calcium [Mass/Vol] 9.4 mg/dL Normal 8.6 - 10. 3 mg/dL [facility] [place].; [facility] [place] Chloride [Moles/Vol] 97 mmol/L Abnormal 98 - 11 0 mmol/L [facility] [place].; [facility] [place]. Cholesterol [Mass/Vol] 211 mg/dL Abnormal [facility] [place] Cholesterol in HDL [Mass/Vol] 85 mg/dL Normal [facility].; [facility] [place]. Cholesterol in LDL [Mass/Vol] 113 mg/dL Abnormal 0 - 100 mg/dL [facility] [place].; [facility] [place]. Cholesterol non HDL [Mass/Vol] 125 mg/dL Normal [facility].; [facility]. Cholesterol.total/Nakia sterol in HDL [Mass ratio] 2.5 {ratio} Normal [facility] [place].; [facility]. CO2 [Moles/Vol] 30 mmol/L Normal 20 - 32 mmol/L [facility] [place].; [facility] [place]. Creatinine [Mass/Vol] 0.84 mg/dL Normal 0.70 - 1.18 mg/dL [facility].; [facility] [place]. GFR/1.73 sq M.predicted among blacks MDRD (S/P/Bld) [Vol rate/Area] 101 {ML/MIN/1.73M2} Normal [facility], [facility].; [place] [employer] [facility], [facility]. GFR/1.73 sq M.predicted MDRD (S/P/Bld) [Vol rate/Area] 87 {ML/MIN/1.73M2} Normal [facility] [place].; [facility] [place] Globulin (S) [Mass/Vol] 2.7 g/dL Normal 1.9 - 3.7 g/dL [facility] [place].; [facility] [place] Glucose [Mass/Vol] 106 mg/dL Abnormal 65 - 99 mg/dL [facility] [place] Potassium [Moles/Vol] 4.3 mmol/L Normal 3.5 - 5.3 mmol/L [facility]; [facility] [place] Protein [Mass/Vol] 6.9 g/dL Normal 6.1 - 8.1 g/dL [facility]; [facility] [place] Sodium [Moles/Vol] 134 mmol/L Abnormal 135 - 146 mmol/L [facility]; [facility] Triglyceride [Mass/Vol] 45 mg/dL Normal H [facility]; [facility] [place] Urea nitrogen [Mass/Vol] 15 mg/dL Normal 7 - 25 mg/dL [facility]; [facility] [place] Urea nitrogen/Creatinine [Mass ratio] 17.5 mg/mg Normal 6 - 22 [facility]; [facility] [place] Laboratory - Chemistry and C hemistry - challengeon 04-04-2017 Albumin [Mass/Vol] 4.2 g/dL Normal 3.6 - 5.1 g/dL [facility]; [facility] [place] Albumin/Globulin [Mass ratio] 1.5 {ratio} Normal 1.0 - 2.5 [facility]; [facility] [place] ALP [Catalytic activity/Vol] 116 U/L Abnormal 40 - 115 U/L [facility]; [facility] [place]. ALT [Catalytic activity/Vol] 15 U/L Normal 9 - 46 U/L [facility]; [facility] [place]. AST [Catalytic activity/Vol] 15 U/L Normal 10 - 35 U/L [facility].; [facility] [place]. Bilirubin [Mass/Vol] 0.6 mg/dL Normal 0.2 - 1 .2 mg/dL [facility]; [facility] [place] Calcium [Mass/Vol] 9.3 mg/dL Normal 8.6 - 10. 3 mg/dL [facility] [place]; [facility] [place] Chloride [Moles/Vol] 103 mmol/L Normal 98 - 11 0 mmol/L [facility]; [facility] [place]. Cholesterol [Mass/Vol] 227 mg/dL Abnormal [facility] [place]. Cholesterol in HDL [Mass/Vol] 67 mg/dL Normal [facility] [place].; [facility] [place]. Cholesterol in LDL [Mass/Vol] 143 mg/dL Abnormal 0 - 100 mg/dL [facility] [place].; [facility] [place] Cholesterol non HDL [Mass/Vol] 160 mg/dL Abnormal [facility].; [facility]. Cholesterol.total/Nakia sterol in HDL [Mass ratio] 3.4 {ratio} Normal [facility] [place].; [facility] CO2 [Moles/Vol] 28 mmol/L Normal 20 - 31 mmol/L [facility] [place].; [facility]. Creatinine [Mass/Vol] 0.85 mg/dL Normal 0.70 - 1.18 mg/dL [facility] [place].; [facility] [place]. GFR/1.73 sq M.predicted among blacks MDRD (S/P/Bld) [Vol rate/Area] 101 {ML/MIN/1.73M2} Normal [facility], [facility].; [facility] [place]. GFR/1.73 sq M.predicted MDRD (S/P/Bld) [Vol rate/Area] 87 {ML/MIN/1.73M2} Normal [facility] [place].; [facility]. Globulin (S) [Mass/Vol] 2.7 g/dL Normal 1.9 - 3.7 g/dL [facility] [place].; [facility] [place]. Glucose [Mass/Vol] 105 mg/dL Abnormal 65 - 99 mg/dL [facility].; [facility] [place]. Potassium [Moles/Vol] 3.8 mmol/L Normal 3.5 - 5.3 mmol/L [facility].; [facility]. Prostate specific Ag [Mass/Vol] 0.2 ng/mL Normal [facility] [place].; [facility] [place] Protein [Mass/Vol] 6.9 g/dL Normal 6.1 - 8.1 g/dL [facility] [place].; [facility] [place] Sodium [Moles/Vol] 139 mmol/L Normal 135 - 146 mmol/L [facility].; [facility] Triglyceride [Mass/Vol] 73 mg/dL Normal H [facility]; [facility] [place] Urea nitrogen [Mass/Vol] 17 mg/dL Normal 7 - 25 mg/dL [facility]; [facility] [place] Urea nitrogen/Creatinine [Mass ratio] 20.1 mg/mg Normal 6 - 22 [facility]; [facility] [place]. Alcohol, Medicalon 7 Ethanol mass conc 184.00 mg/dL High <3.00 [facility] L AB Interpretation and review of laboratory results Abnormal [facility] Anion gap molar conc 19 mmol/L 10 - 20 mmol/L [facility] Calcium mass conc 8.7 mg/dL 8.4 - 10.2 mg/dL [facility] Chloride molar conc 89 mmol/L Low 98 - 108 mmol/L [facility] Creatinine mass conc 0.58 mg/dL Low 0.8 - 1 .3 mg/dL [facility] GFR/1.73 sq M predicted among non-blacks MDRD vol rate/area (S/P/Bld) The eGFR should be used for monitoring renal function only and not for medication dosing. [facility] GFR/1.73 sq M.predicted CKD-EPI vol rate/area (S/P/Bld) 103 mL/min/1.73 m2 >=60 [facility] Glucose mass conc 87 mg/dL 65 - 99 mg/dL [facility] HCO3 molar conc 22 mmol/L 22 - 34 mmol/L [facility] Interpretation and review of laboratory results Abnormal [facility] Potassium molar conc 3.2 mmol/L Low 3.5 - 5 .1 mmol/L [facility] Sodium molar conc 127 mmol/L Low 135 - 145 mmol/L [facility] Urea nitrogen mass conc 14 mg/dL 8 - 25 mg/dL [facility] Urea nitrogen/Creatinine mass ratio 24.1 mg/mg High 10.0 - 20.0 [facility] CBC Auto Differentialon Basophils #/vol (Bld) 0.01 K/mcL 0.00 - 0.30 GM H LAB Basophils/100 WBC (Bld) 0.2 % G LAB Eosinophils #/vol (Bld) 0.12 K/mcL 0.00 - 0.50 [facility] Eosinophils/100 WBC (Bld) 2.1 % [facility] Erythrocyte distribution width Entitic volume (RBC) 12.2 % 11.6 - 14.8 % [facility] Hematocrit Volume Fraction (Bld) 37.0 % Low 41 - 53 % [facility] Hemoglobin mass conc (Bld) 13.3 g/dL Low 13.5 - 17.5 g/dL [facility] Lymphocytes #/vol (Bld) 1.09 K/mcL 0.90 - 4.00 [facility] Lymphocytes/100 WBC (Bld) 19.4 % [facility] MCH Entitic mass (RBC) 31.9 pg 26 - 34 pg GM H LAB MCHC mass conc (RBC) 35.9 g/dL 31 - 37 g/dL GM [facility] LAB MCV Entitic volume (RBC) 88.7 fL 80 - 100 fL [facility] Monocytes #/vol (Bld) 0.45 K/mcL 0.30 - 0.90 GM H LAB Monocytes/100 WBC (Bld) 8.0 % G LAB Neutrophils #/vol (Bld) 3.96 K/mcL 1.70 - 7.00 [facility] Neutrophils/100 WBC (Bld) 70.3 % [facility] Nucleated RBC #/vol (Bld) 0.00 K/mcL 0.00 - 0.00 [facility] Nucleated RBC/100 WBC Ratio (Bld) 0.0 % [facility] Platelet mean volume Entitic volume (Bld) 9.9 fL 9 - 15.5 fL [facility] Platelets #/vol (Bld) 161 K/mcL 150 - 400 [facility] RBC #/vol (Bld) 4.17 M/mcL Low 4.50 - 5.90 [facility] WBC #/vol (Bld) 5.63 K/mcL 4.50 - 11.00 [facility] CBC w/ Diffon 11-29-2016 CBC w/ Diff The following orders were created for panel order CBC w/ Diff. Procedure Abnormality Status --------- ------ CBC Auto Differential[[id number]] Abnormal Final result Please view results for these tests on the individual orders. [place] [employer]: Laboratory - Chemistry and C hemistry - challengeon 04-17-2016 Calcium [Mass/Vol] 9.5 mg/dL Normal 8.6 - 10. 3 mg/dL [facility] [place] [place] [employer] Chloride [Moles/Vol] 101 mmol/L Normal 98 - 11 0 mmol/L [facility] [place].; [place] [employer] CO2 [Moles/Vol] 20 mmol/L Normal 20 - 31 mmol/L [facility] [place].; [place] [employer] Creatinine [Mass/Vol] 0.76 mg/dL Normal 0.70 - 1.18 mg/dL [facility] [place].; [place] [employer] [facility], [facility]. GFR/1.73 sq M.predicted among blacks MDRD (S/P/Bld) [Vol rate/Area] 106 {ML/MIN/1.73M2} Normal [facility], [facility].; [place] [employer]. GFR/1.73 sq M.predicted MDRD (S/P/Bld) [Vol rate/Area] 92 {ML/MIN/1.73M2} Normal [facility] [place].; [place] [employer] [facility] Glucose [Mass/Vol] 83 mg/dL Normal 65 - 99 mg/dL [facility].; [place] [employer] Potassium [Moles/Vol] 4.5 mmol/L Normal 3.5 - 5.3 mmol/L [facility] [place].; [place] [employer] Sodium [Moles/Vol] 136 mmol/L Normal 135 - 146 mmol/L [facility] [place].; [place] [employer] Urea nitrogen [Mass/Vol] 16 mg/dL Normal 7 - 25 mg/dL [facility] [place].; [place] [employer] Urea nitrogen/Creatinine [Mass ratio] 21.6 mg/mg Normal 6 - 22 [facility] [place] [place] [employer] Laboratory - Chemistry and C hemistry - challengeon 07-09-2015 Calcium [Mass/Vol] 9.5 mg/dL Normal 8.6 - 10. 3 mg/dL [facility].; [facility] [place]. Chloride [Moles/Vol] 95 mmol/L Abnormal 98 - 11 0 mmol/L [facility].; [facility] [place]. CO2 [Moles/Vol] 23 mmol/L Normal 19 - 30 mmol/L [facility] [place].; [facility] [place] Creatinine [Mass/Vol] 0.74 mg/dL Normal 0.70 - 1.18 mg/dL [facility].; [facility] [place]. GFR/1.73 sq M.predicted among blacks MDRD (S/P/Bld) [Vol rate/Area] 108 {ML/MIN/1.73M2} Normal [facility].; [facility] [place]. GFR/1.73 sq M.predicted MDRD (S/P/Bld) [Vol rate/Area] 93 {ML/MIN/1.73M2} Normal [facility].; [facility] [place]. Glucose [Mass/Vol] 118 mg/dL Abnormal 65 - 99 mg/dL [facility].; [facility] [place]. Potassium [Moles/Vol] 3.7 mmol/L Normal 3.5 - 5.3 mmol/L [facility].; [facility] [place]. Prostate specific Ag [Mass/Vol] 9.5 ng/mL Abnormal [facility].; [facility] [place]. Sodium [Moles/Vol] 133 mmol/L Abnormal 135 - 146 mmol/L [facility] [place].; [facility]. Urea nitrogen [Mass/Vol] 15 mg/dL Normal 7 - 25 mg/dL [facility].; [facility] [place]. Urea nitrogen/Creatinine [Mass ratio] 19.9 mg/mg Normal 6 - 22 [facility].; [facility] [place]. Laboratory - Chemistry and C hemistry - challengeon 06-24-2014 Prostate specific Ag [Mass/Vol] 6.4 ng/mL Abnormal 0.0 - 4.0 ng/mL [facility].; [facility] [place] Laboratory - Chemistry and C hemistry - challengeon 12-23-2013 Albumin [Mass/Vol] 4.3 g/dL Normal 3.6 - 5.1 g/dL [facility].; [facility] [place]. Albumin/Globulin [Mass ratio] 1.5 {ratio} Normal 1.0 - 2.5 [facility].; [facility] [place]. ALP [Catalytic activity/Vol] 95 U/L Normal 40 - 115 U/L [facility] [employer] [facility].; [facility] [place]. ALT [Catalytic activity/Vol] 23 U/L Normal 9 - 46 U/L [facility].; [facility] [place]. AST [Catalytic activity/Vol] 23 U/L Normal 10 - 35 U/L [facility] [employer] [facility].; [place] [employer] [facility], [facility]. Bilirubin [Mass/Vol] 0.9 mg/dL Normal 0.2 - 1 .2 mg/dL [facility] [employer] [facility].; [facility] [place] [employer] [facility]. Calcium [Mass/Vol] 9.5 mg/dL Normal 8.6 - 10. 3 mg/dL [facility] [place] [employer] [facility].; [facility] [place] [employer] [facility]. Chloride [Moles/Vol] 95 mmol/L Abnormal 98 - 11 0 mmol/L [facility] [place] [employer] [facility].; [facility] [place]. Cholesterol [Mass/Vol] 201 mg/dL Abnormal 125 - 200 mg/dL [facility] [place] [employer] [facility].; [facility] [place]. Cholesterol in HDL [Mass/Vol] 77 mg/dL Normal [facility] [place] [employer] [facility].; [facility] [place] [employer] [facility]. Cholesterol in LDL [Mass/Vol] 113 mg/dL Normal [facility] [place] [employer] [facility].; [place] [employer] [facility], [facility] Cholesterol non HDL [Mass/Vol] 124 mg/dL Normal [facility] [place] [employer] [facility].; [place] [employer] [facility], [facility]. Cholesterol.total/Nakia sterol in HDL [Mass ratio] 2.6 {ratio} Normal [facility] [place] [employer] [facility].; [place] [employer] [facility], [employer]. CO2 [Moles/Vol] 27 mmol/L Normal 19 - 30 mmol/L [facility] [place] [employer] [facility].; [place] [employer] [facility], [facility]. Creatinine [Mass/Vol] 0.82 mg/dL Normal 0.70 - 1.25 mg/dL [facility].; [facility] [place]. GFR/1.73 sq M.predicted among blacks MDRD (S/P/Bld) [Vol rate/Area] 105 {ML/MIN/1.73M2} Normal [facility].; [facility] [place]. GFR/1.73 sq M.predicted MDRD (S/P/Bld) [Vol rate/Area] 91 {ML/MIN/1.73M2} Normal [facility].; [facility] [place] Globulin (S) [Mass/Vol] 2.8 g/dL Normal 1.9 - 3.7 g/dL [facility] [place].; [facility] [place]. Glucose [Mass/Vol] 99 mg/dL Normal 65 - 99 mg/dL [facility].; [facility] [place]. Potassium [Moles/Vol] 3.5 mmol/L Normal 3.5 - 5.3 mmol/L [facility].; [facility] [place]. Prostate specific Ag [Mass/Vol] 7.8 ng/mL Abnormal 0.0 - 4.0 ng/mL [facility].; [facility] [place]. Protein [Mass/Vol] 7.1 g/dL Normal 6.1 - 8.1 g/dL [facility] [place].; [facility]. Sodium [Moles/Vol] 134 mmol/L Abnormal 135 - 146 mmol/L [facility] [place].; [facility] [place]. Triglyceride [Mass/Vol] 57 mg/dL Normal [facility].; [facility] [place]. Urea nitrogen [Mass/Vol] 12 mg/dL Normal 7 - 25 mg/dL [facility] [place].; [facility] [place]. Urea nitrogen/Creatinine [Mass ratio] 14.4 mg/mg Normal 6 - 22 [facility].; [facility] [place]. Laboratory - Chemistry and C hemistry - challengeon 02-29-2012 Albumin [Mass/Vol] 4.1 g/dL Normal 3.6 - 5.1 g/dL [facility] [place].; [facility] [place]. Albumin/Globulin [Mass ratio] 1.5 {ratio} Normal 1.0 - 2.1 [facility].; [facility] [place] [employer] [facility]. ALP [Catalytic activity/Vol] 105 U/L Normal 40 - 115 U/L [facility].; [facility] [place]. ALT [Catalytic activity/Vol] 48 U/L Normal 9 - 60 U/L [facility] [place].; [facility]. AST [Catalytic activity/Vol] 34 U/L Normal 10 - 35 U/L [facility] [place] [employer] [facility].; [place] [employer] [facility]. Bilirubin [Mass/Vol] 0.7 mg/dL Normal 0.2 - 1 .2 mg/dL [facility]. Calcium [Mass/Vol] 9.4 mg/dL Normal 8.6 - 10. 3 mg/dL [facility] [employer] [facility].; [facility]. Chloride [Moles/Vol] 95 mmol/L Abnormal 98 - 11 0 mmol/L [facility] [employer] [facility].; [place] [employer] [facility], [facility]. Cholesterol [Mass/Vol] 199 mg/dL Normal 125 - 200 mg/dL [facility] [employer] [facility].; [place] [employer] [facility], [facility]. Cholesterol in HDL [Mass/Vol] 69 mg/dL Normal [facility] [employer] [facility].; [place] [employer] [facility], [facility]. Cholesterol in LDL [Mass/Vol] 118 mg/dL Normal [facility] [employer] [facility].; [place] [employer] [facility], [facility]. Cholesterol non HDL [Mass/Vol] 131 mg/dL Normal [facility] [employer] [facility].; [place] [employer] [facility]. Cholesterol.total/Nakia sterol in HDL [Mass ratio] 2.9 {ratio} Normal [facility] [employer] [facility].; [place] [employer] [facility]. CO2 [Moles/Vol] 27 mmol/L Normal 21 - 33 mmol/L [facility] [employer] [facility].; [place] [employer] [facility], [facility]. Creatinine [Mass/Vol] 0.92 mg/dL Normal 0.70 - 1.25 mg/dL [facility], [facility].; [place] [employer] [facility], [facility]. GFR/1.73 sq M.predicted among blacks MDRD (S/P/Bld) [Vol rate/Area] 99 {ML/MIN/1.73M2} Normal [facility].; [facility]. GFR/1.73 sq M.predicted MDRD (S/P/Bld) [Vol rate/Area] 86 {ML/MIN/1.73M2} Normal [facility]; [facility], [facility] Globulin (S) [Mass/Vol] 2.8 g/dL Normal 2.1 - 3.7 g/dL [facility]; [facility], [facility] Glucose [Mass/Vol] 107 mg/dL Abnormal 65 - 99 mg/dL [facility].; [facility], [facility] Potassium [Moles/Vol] 3.7 mmol/L Normal 3.5 - 5.3 mmol/L [facility]; [facility], [facility] Prostate specific Ag [Mass/Vol] 5.2 ng/mL Abnormal 0.0 - 4.0 ng/mL [facility]; [facility], [facility] Protein [Mass/Vol] 6.9 g/dL Normal 6.2 - 8.3 g/dL [facility]; [facility], [facility]. Sodium [Moles/Vol] 133 mmol/L Abnormal 135 - 146 mmol/L [facility]; [facility], [facility] Triglyceride [Mass/Vol] 58 mg/dL Normal H [facility]; [facility], [facility] Urea nitrogen [Mass/Vol] 11 mg/dL Normal 7 - 25 mg/dL [facility]; [facility], [facility] Urea nitrogen/Creatinine [Mass ratio] 12.2 mg/mg Normal 6 - 22 [facility]; [facility], [facility] Laboratory - Chemistry and C hemistry - challengeon 11-23-2010 Calcium [Mass/Vol] 9.5 mg/dL Normal 8.6 - 10. 2 mg/dL [facility]; [facility], [facility] Chloride [Moles/Vol] 96 mmol/L Abnormal 98 - 11 0 mmol/L [facility], [facility].; [facility], [facility] CO2 [Moles/Vol] 25 mmol/L Normal 21 - 33 mmol/L [facility]; [facility] Creatinine [Mass/Vol] 0.87 mg/dL Normal 0.76 - 1.46 mg/dL [facility] [employer] [facility].; [facility], [facility]. GFR/1.73 sq M.predicted among blacks MDRD (S/P/Bld) [Vol rate/Area] 105 {ML/MIN/1.73M2} Normal [facility].; [facility], [facility] GFR/1.73 sq M.predicted MDRD (S/P/Bld) [Vol rate/Area] 91 {ML/MIN/1.73M2} Normal [facility].; [facility], [facility]. Glucose [Mass/Vol] 114 mg/dL Abnormal 65 - 99 mg/dL [facility].; [facility], [facility]. Potassium [Moles/Vol] 3.8 mmol/L Normal 3.5 - 5.3 mmol/L [facility].; [facility], [facility] Sodium [Moles/Vol] 133 mmol/L Abnormal 135 - 146 mmol/L [facility].; [facility], [facility]. Urea nitrogen [Mass/Vol] 12 mg/dL Normal 7 - 25 mg/dL [facility] [employer] [facility].; [facility], [facility]. Urea nitrogen/Creatinine [Mass ratio] 13.9 mg/mg Normal 6 - 22 [facility].; [facility], [facility]. Laboratory - Chemistry and C hemistry - challengeon 09-06-2010 Calcium [Mass/Vol] 9.2 mg/dL Normal 8.6 - 10. 2 mg/dL [facility].; [facility], [facility]. Chloride [Moles/Vol] 95 mmol/L Abnormal 98 - 11 0 mmol/L [facility] [employer] [facility].; [facility], [facility]. CO2 [Moles/Vol] 25 mmol/L Normal 21 - 33 mmol/L [facility], [facility].; [facility], [facility]. Creatinine [Mass/Vol] 0.86 mg/dL Normal 0.76 - 1.46 mg/dL [facility], [facility].; [facility]. GFR/1.73 sq M.predicted among blacks MDRD (S/P/Bld) [Vol rate/Area] 105 {ML/MIN/1.73M2} Normal [facility].; [facility] GFR/1.73 sq M.predicted MDRD (S/P/Bld) [Vol rate/Area] 91 {ML/MIN/1.73M2} Normal [facility]; [facility] Glucose [Mass/Vol] 95 mg/dL Normal 65 - 99 mg/dL [facility].; [facility] Potassium [Moles/Vol] 3.3 mmol/L Abnormal 3.5 - 5.3 mmol/L [facility]; [facility] Sodium [Moles/Vol] 133 mmol/L Abnormal 135 - 146 mmol/L [facility]; [facility] Urea nitrogen [Mass/Vol] 12 mg/dL Normal 7 - 25 mg/dL [facility]; [facility] Urea nitrogen/Creatinine [Mass ratio] 13.5 mg/mg Normal 6 - 22 [facility]; [facility] Vital Signs Date Time Vital Sign Value Performing Clinician Facility 10-03-2024 11:02-0400 Body height 177.[address] Alireza Gutierrez MD Work Phone: [facility] 10-03-2024 11:02-0400 Body mass index (BMI) [Ratio] 32.5 kg/m2 Dr. Alireza Gutierrez MD Work Phone: [facility] 10-03-2024 11:02-0400 Body temperature 98.2 [degF] Dr. Alireza Gutierrez MD Work Phone: [facility] 10-03-2024 11:02-0400 Body weight 102.[address] Alireza Gutierrez MD Work Phone: [facility] 10-03-2024 11:02-0400 Diastolic blood pressure 78 mm[Hg] Dr. Alireza Gutierrez MD Work Phone: [facility] 10-03-2024 11:02-0400 Heart rate 81 /min Dr. Alireza Gutierrez MD Work Phone: [facility] 10-03-2024 11:02-0400 Respiratory rate 15 /min Dr. Alireza Gutierrez MD Work Phone: [facility] 10-03-2024 11:02-0400 SaO2% (BldA) [Mass fraction] 96 % Dr. Alireza Gutierrez MD Work Phone: [facility] 10-03-2024 11:02-0400 Systolic blood pressure 163 mm[Hg] Dr. Alireza Gutierrez MD Work Phone: [facility] 07-01-2024 14:24-0500 Body height 177.8 cm Alireza Gutierrez MD Work Phone: [employer] 07-01-2024 14:24-0500 Body mass index (BMI) [Ratio] 32.86 kg/m2 Alireza Gutierrez MD Work Phone: [employer] 07-01-2024 14:24-0500 Body surface area Derived from formula 2.21 m2 Alireza Gutierrez MD Work Phone: [employer]; [employer] 07-01-2024 14:24-0500 Body weight 103.87 kg Alireza Gutierrez MD Work Phone: [employer] 07-01-2024 14:24-0500 Diastolic blood pressure 78 mm[Hg] Alireza Gutierrez MD Work Phone: [employer] Comment on above: Patient Position: Sitting; Cuff Location : Left Arm; Cuff Size: Standard 07-01-2024 14:24-0500 Heart rate 86 /min Alireza Gutierrez MD Work Phone: [employer] Comment on above: Pattern: Regular 07-01-2024 14:24-0500 Systolic blood pressure 134 mm[Hg] Alireza Gutierrez MD Work Phone: [employer] Comment on above: Patient Position: Sitting; Cuff Location : Left Arm; Cuff Size: Standard 04-03-2024 10:03050 Body temperature 97.6 [degF] Johnson Bernal LPN [facility] [employer] [facility].; [employer] 04-03-2024 10:03-0500 Diastolic blood pressure 77 mm[Hg] Johnson Bernal [facility], [facility].; [employer]. Comment on above: Patient Position: Sitting; Cuff Location : Left Arm; Cuff Size: Standard 04-03-2024 10:03-0500 Heart rate 71 /min Johnson Bernal [facility], [facility].; [employer]. Comment on above: Pattern: Regular 04-03-2024 10:03-0500 Inhaled oxygen concentration 21 % [facility] [employer] [facility].; [employer]. Comment on above: Room air 04-03-2024 10:03-0500 SaO2% (BldA) [Mass fraction] 95 % [facility] [employer] [facility].; [employer] 04-03-2024 10:03-0500 Systolic blood pressure 148 mm[Hg] [facility] [employer] [facility].; [employer]. Comment on above: Patient Position: Sitting; Cuff Location : Left Arm; Cuff Size: Standard 11-14-2023 10:08040 Body height 177.8 cm Alireza Gutierrez MD Work Phone: [facility] [employer] [facility].; [employer] 11-14-2023 10:08-0400 Body mass index (BMI) [Ratio] 32.71 kg/m2 Alireza Gutierrez MD Work Phone: [facility] [employer] 11-14-2023 10:08-0400 Body surface area Derived from formula 2.21 m2 Alireza Gutierrez MD Work Phone: [facility] [employer] 11-14-2023 10:08-0400 Body weight 103.42 kg Alireza Gutierrez MD Work Phone: [employer] 11-14-2023 10:08-0400 Diastolic blood pressure 78 mm[Hg] Alireza Gutierrez MD Work Phone: [employer] Comment on above: Patient Position: Sitting; Cuff Location : Left Arm; Cuff Size: Standard 11-14-2023 10:08-0400 Heart rate 80 /min Alireza Gutierrez MD Work Phone: [employer] Comment on above: Pattern: Regular 11-14-2023 10:08-0400 Systolic blood pressure 130 mm[Hg] Alireza Gutierrez MD Work Phone: [employer] Comment on above: Patient Position: Sitting; Cuff Location : Left Arm; Cuff Size: Standard 05-15-2023 08:06-0500 Body height 177.8 cm Alireza Gutierrez MD Work Phone: [employer] 05-15-2023 08:06-0500 Body mass index (BMI) [Ratio] 33.43 kg/m2 Alireza Gutierrez MD Work Phone: [employer] 05-15-2023 08:06-0500 Body surface area Derived from formula 2.23 m2 Alireza Gutierrez MD Work Phone: [employer] 05-15-2023 08:06-0500 Body weight 105.69 kg Alireza Gutierrez MD Work Phone: [employer] 05-15-2023 08:06-0500 Diastolic blood pressure 76 mm[Hg] Alireza Gutierrez MD Work Phone: [employer] Comment on above: Patient Position: Sitting; Cuff Location : Left Arm; Cuff Size: Large 05-15-2023 08:06-0500 Heart rate 75 /min Alireza Gutierrez MD Work Phone: [employer] Comment on above: Pattern: Regular 05-15-2023 08:06-0500 Systolic blood pressure 122 mm[Hg] Alireza Gutierrez MD Work Phone: [employer] Comment on above: Patient Position: Sitting; Cuff Location : Left Arm; Cuff Size: Large 04-16-2023 10:30-0500 Body height 177.[address] Alireza Gutierrez Work Phone: [facility] 04-16-2023 10:30-0500 Body mass index (BMI) [Ratio] 31.8 kg/m2 Dr. Alireza Gutierrez Work Phone: [facility] 04-16-2023 10:30-0500 Body weight 100.[address] Alireza Gutierrez Work Phone: [facility] 11-15-2022 10:48-0400 Body weight 103.87 kg Alireza Gutierrez MD Work Phone: [employer] 11-15-2022 10:48-0400 Diastolic blood pressure 82 mm[Hg] Alireza Gutierrez MD Work Phone: [employer] Comment on above: Patient Position: Sitting; Cuff Location : Left Arm; Cuff Size: Standard 11-15-2022 10:48-0400 Heart rate 79 /min Alireza Gutierrez MD Work Phone: [employer] Comment on above: Pattern: Regular 11-15-2022 10:48-0400 Systolic blood pressure 150 mm[Hg] Alireza Gutierrez MD Work Phone: [employer] Comment on above: Patient Position: Sitting; Cuff Location : Left Arm; Cuff Size: Standard 05-17-2022 10:33-0500 Body height 177.8 cm Alireza Gutierrez MD Work Phone: [employer] 05-17-2022 10:33-0500 Body mass index (BMI) [Ratio] 32.71 kg/m2 Alireza Gutierrez MD Work Phone: [employer] 05-17-2022 10:33-0500 Body surface area Derived from formula 2.21 m2 Alireza Gutierrez MD Work Phone: [employer] 05-17-2022 10:33-0500 Body weight 103.42 kg Alireza Gutierrez MD Work Phone: [employer]; [employer] 05-17-2022 10:33-0500 Diastolic blood pressure 80 mm[Hg] Alireza Gutierrez MD Work Phone: [employer]; [employer] Comment on above: Patient Position: Sitting; Cuff Location : Left Arm; Cuff Size: Standard 05-17-2022 10:33-0500 Heart rate 82 /min Alireza Gutierrez MD Work Phone: [employer]; [employer] Comment on above: Pattern: Regular 05-17-2022 10:33-0500 Systolic blood pressure 132 mm[Hg] Alireza Gutiererz MD Work Phone: [employer]; [employer] Comment on above: Patient Position: Sitting; Cuff Location : Left Arm; Cuff Size: Standard 11-02-2021 10:23-0400 Body height 177.8 cm Rosalia Katherin [facility] [employer]; [employer] 11-02-2021 10:23-0400 Body mass index (BMI) [Ratio] 32.28 kg/m2 Rosalia Pandey [facility] [employer]; [employer] 11-02-2021 10:23-0400 Body surface area Derived from formula 2.19 m2 Rosalia Pandey [facility] [employer] 11-02-2021 10:23-0400 Body weight 102.06 kg Rosalia Pandey [facility] [employer] [facility].; [facility] [employer] [facility]. 11-02-2021 10:23-0400 Diastolic blood pressure 75 mm[Hg] Rosalia Pandey [facility] [employer] [facility].; [facility]. Comment on above: Patient Position: Sitting; Cuff Location : Left Arm; Cuff Size: Large 11-02-2021 10:23-0400 Heart rate 86 /min Rosalia Pandey [facility].; [place] [employer]. Comment on above: Pattern: Regular 11-02-2021 10:23-0400 Systolic blood pressure 141 mm[Hg] Rosalia Pandey [facility].; [facility] [employer] [facility]. Comment on above: Patient Position: Sitting; Cuff Location : Left Arm; Cuff Size: Large 08-18-2021 12:45-0400 Body temperature 96.9 [degF] [facility] Work Phone: 08-18-2021 12:45-0400 Diastolic blood pressure 90 mm[Hg] [facility] Work Phone: 08-18-2021 12:45-0400 Heart rate 72 /min [facility] Work Phone: 08-18-2021 12:45-0400 Respiratory rate 16 /min [facility] Work Phone: 08-18-2021 12:45-0400 SaO2% (BldA) [Mass fraction] 98 % [facility] Work Phone: 08-18-2021 12:45-0400 Systolic blood pressure 130 mm[Hg] [facility] Work Phone: 08-18-2021 07:43-0400 Body height 177.8 cm [facility] Work Phone: 08-18-2021 07:43-0400 Body mass index (BMI) [Ratio] 31.4 kg/m2 [facility] Work Phone: 08-18-2021 07:43-0400 Body weight 99.15 kg [facility] Work Phone: 08-05-2021 15:45-0400 Body temperature 98.8 [degF] [facility] Work Phone: 08-05-2021 15:45-0400 Diastolic blood pressure 80 mm[Hg] [facility] Work Phone: 08-05-2021 15:45-0400 Heart rate 85 /min [facility] Work Phone: 08-05-2021 15:45-0400 Respiratory rate 16 /min [facility] Work Phone: 08-05-2021 15:45-0400 SaO2% (BldA) [Mass fraction] 98 % [facility] Work Phone: 08-05-2021 15:45-0400 Systolic blood pressure 152 mm[Hg] [facility] Work Phone: 08-05-2021 10:40-0400 Body height 177.8 cm [facility] Work Phone: 08-05-2021 10:40-0400 Body mass index (BMI) [Ratio] 32.3 kg/m2 [facility] Work Phone: 08-05-2021 10:40-0400 Body weight 102.07 kg [facility] Work Phone: 04-13-2021 11:20-0500 Diastolic blood pressure 85 mm[Hg] Alireza Gutierrez MD Work Phone: [employer] [facility] [employer] [facility]. Comment on above: Patient Position: Sitting; Cuff Location : Left Arm; Cuff Size: Standard 04-13-2021 11:20-0500 Systolic blood pressure 130 mm[Hg] Alireza Gutierrez MD Work Phone: [employer] Comment on above: Patient Position: Sitting; Cuff Location : Left Arm; Cuff Size: Standard 04-13-2021 11:03-0500 Body height 177.8 cm Alireza Gutierrez MD Work Phone: [employer]; [employer] 04-13-2021 11:03-0500 Body mass index (BMI) [Ratio] 32.14 kg/m2 Alireza Gutierrez MD Work Phone: [employer]; [employer] 04-13-2021 11:03-0500 Body surface area Derived from formula 2.19 m2 Alireza Gutierrez MD Work Phone: [employer]; [employer] 04-13-2021 11:03-0500 Body weight 101.61 kg Alireza Gutierrez MD Work Phone: [employer]; [employer] 04-13-2021 11:03-0500 Diastolic blood pressure 77 mm[Hg] Alireza Gutierrez MD Work Phone: [employer]; [employer] Comment on above: Patient Position: Sitting; Cuff Location : Left Arm; Cuff Size: Standard 04-13-2021 11:03-0500 Heart rate 78 /min Alireza Gutierrez MD Work Phone: [employer]; [employer] Comment on above: Pattern: Regular 04-13-2021 11:03-0500 Systolic blood pressure 146 mm[Hg] Alireza Gutierrez MD Work Phone: [employer]; [employer] Comment on above: Patient Position: Sitting; Cuff Location : Left Arm; Cuff Size: Standard 10-19-2020 10:39-0400 Body height 177.8 cm Alireza Gutierrez MD Work Phone: [employer]; [employer] 10-19-2020 10:39-0400 Body mass index (BMI) [Ratio] 31.85 kg/m2 Alireza Gutierrez MD Work Phone: [employer]; [employer] 10-19-2020 10:39-0400 Body surface area Derived from formula 2.18 m2 Alireza Gutierrez MD Work Phone: [employer]; [employer] 10-19-2020 10:39-0400 Body weight 100.7 kg Alireza Gutierrez MD Work Phone: [employer]; [employer] 10-19-2020 10:39-0400 Diastolic blood pressure 90 mm[Hg] Alireza Gutierrez MD Work Phone: [employer]; [employer] Comment on above: Patient Position: Sitting; Cuff Location : Left Arm; Cuff Size: Standard 10-19-2020 10:39-0400 Heart rate 80 /min Alireza Gutierrez MD Work Phone: [employer]; [employer] Comment on above: Pattern: Regular 10-19-2020 10:39-0400 Systolic blood pressure 156 mm[Hg] Alireza Gutierrez MD Work Phone: [employer]; [employer] Comment on above: Patient Position: Sitting; Cuff Location : Left Arm; Cuff Size: Standard 04-20-2020 10:24-0500 Body height 177.8 cm Alireza Gutierrez MD Work Phone: [employer]; [employer] 04-20-2020 10:24-0500 Body mass index (BMI) [Ratio] 31.57 kg/m2 Alireza Gutierrez MD Work Phone: [employer]; [employer] 04-20-2020 10:24-0500 Body surface area Derived from formula 2.17 m2 Alireza Gutierrez MD Work Phone: [employer]; [employer] 04-20-2020 10:24-0500 Body weight 99.79 kg Alireza Gutierrez MD Work Phone: [employer]; [employer] 04-20-2020 10:24-0500 Diastolic blood pressure 80 mm[Hg] Alireza Gutierrez MD Work Phone: [employer]; [employer] Comment on above: Patient Position: Sitting; Cuff Location : Left Arm; Cuff Size: Large 04-20-2020 10:24-0500 Heart rate 82 /min Alireza Gutierrez MD Work Phone: [employer]; [employer] Comment on above: Pattern: Regular 04-20-2020 10:24-0500 Systolic blood pressure 136 mm[Hg] Alireza Gutierrez MD Work Phone: [employer]; [employer] Comment on above: Patient Position: Sitting; Cuff Location : Left Arm; Cuff Size: Large 09-29-2019 13:08-0400 Body height 177.8 cm Alireza Gutierrez MD Work Phone: [employer]; [employer] 09-29-2019 13:08-0400 Body mass index (BMI) [Ratio] 30.85 kg/m2 Alireza Gutierrez MD Work Phone: [employer]; [employer] 09-29-2019 13:08-0400 Body surface area Derived from formula 2.15 m2 Alireza Gutierrez MD Work Phone: [employer]; [employer] 09-29-2019 13:08-0400 Body temperature 98.5 [degF] Alireza Gutierrez MD Work Phone: [employer]; [employer] Comment on above: Method: Tympanic 09-29-2019 13:08-0400 Body weight 97.52 kg Alireza Gutierrez MD Work Phone: [employer]; [employer] 09-29-2019 13:08-0400 Diastolic blood pressure 78 mm[Hg] Alireza Gutierrez MD Work Phone: [employer]; [employer] Comment on above: Patient Position: Sitting; Cuff Location : Left Arm; Cuff Size: Standard 09-29-2019 13:08-0400 Heart rate 84 /min Alireza Gutierrez MD Work Phone: [employer]; [employer] Comment on above: Pattern: Regular 09-29-2019 13:08-0400 Systolic blood pressure 132 mm[Hg] Alireza Gutierrez MD Work Phone: [employer]; [employer] Comment on above: Patient Position: Sitting; Cuff Location : Left Arm; Cuff Size: Standard 04-16-2019 09:27-0500 Body height 177.8 cm Alireza Gutierrez MD Work Phone: [employer]; [employer] 04-16-2019 09:27-0500 Body mass index (BMI) [Ratio] 29.7 kg/m2 Alireza Gutierrez MD Work Phone: [employer]; [employer] 04-16-2019 09:27-0500 Body surface area Derived from formula 2.12 m2 Alireza Gutierrez MD Work Phone: [employer]; [employer] 04-16-2019 09:27-0500 Body weight 93.9 kg Alireza Gutierrez MD Work Phone: [employer]; [employer] 04-16-2019 09:27-0500 Diastolic blood pressure 78 mm[Hg] Alireza Gutierrez MD Work Phone: [employer]; [employer] Comment on above: Patient Position: Sitting; Cuff Location : Left Arm; Cuff Size: Large 04-16-2019 09:27-0500 Heart rate 70 /min Alireza Gutierrez MD Work Phone: [employer]; [employer] Comment on above: Pattern: Regular 04-16-2019 09:27-0500 Systolic blood pressure 136 mm[Hg] Alireza Gutierrez MD Work Phone: [employer]; [employer] Comment on above: Patient Position: Sitting; Cuff Location : Left Arm; Cuff Size: Large 10-18-2018 08:20-0400 Body height 177.8 cm Alireza Gutierrez MD Work Phone: [employer]; [employer] 10-18-2018 08:20-0400 Body mass index (BMI) [Ratio] 32.71 kg/m2 Alireza Gutierrez MD Work Phone: [employer]; [employer] 10-18-2018 08:20-0400 Body surface area Derived from formula 2.21 m2 Alireza Gutierrez MD Work Phone: [employer]; [employer] 10-18-2018 08:20-0400 Body weight 103.42 kg Alireza Gutierrez MD Work Phone: [employer]; [employer] 10-18-2018 08:20-0400 Diastolic blood pressure 80 mm[Hg] Alireza Gutierrez MD Work Phone: [employer]; [employer] Comment on above: Patient Position: Sitting; Cuff Location : Left Arm; Cuff Size: Standard 10-18-2018 08:20-0400 Heart rate 76 /min Alireza Gutierrez MD Work Phone: [employer]; [employer] Comment on above: Pattern: Regular 10-18-2018 08:20-0400 Systolic blood pressure 142 mm[Hg] Alireza Gutierrez MD Work Phone: [employer]; [employer] Comment on above: Patient Position: Sitting; Cuff Location : Left Arm; Cuff Size: Standard 04-17-2018 08:55-0500 Body height 177.8 cm Alireza Gutierrez MD Work Phone: [employer]; [employer] 04-17-2018 08:55-0500 Body mass index (BMI) [Ratio] 32.14 kg/m2 Alireza Gutierrez MD Work Phone: [employer]; [employer] 04-17-2018 08:55-0500 Body surface area Derived from formula 2.19 m2 Alireza Gutierrez MD Work Phone: [employer]; [employer] 04-17-2018 08:55-0500 Body weight 101.61 kg Alireza Gutierrez MD Work Phone: [employer]; [employer] 04-17-2018 08:55-0500 Diastolic blood pressure 84 mm[Hg] Alireza Gutierrez MD Work Phone: [employer]; [employer] Comment on above: Patient Position: Sitting; Cuff Location : Left Arm; Cuff Size: Large 04-17-2018 08:55-0500 Heart rate 73 /min Alireza Guteirrez MD Work Phone: [employer]; [employer] Comment on above: Pattern: Regular 04-17-2018 08:55-0500 Systolic blood pressure 140 mm[Hg] Alireza Gutierrez MD Work Phone: [employer]; [employer] Comment on above: Patient Position: Sitting; Cuff Location : Left Arm; Cuff Size: Large 10-05-2017 10:10-0400 Body height 177.8 cm Virginie Morton RN [employer]; [employer] 10-05-2017 10:10-0400 Body mass index (BMI) [Ratio] 30.85 kg/m2 Virginie Morton RN [employer]; [employer] 10-05-2017 10:10-0400 Body surface area Derived from formula 2.15 m2 Virginie Morton RN [employer]; [employer] 10-05-2017 10:10-0400 Body weight 97.52 kg Virginie Morton RN [employer]; [employer] 10-05-2017 10:10-0400 Diastolic blood pressure 71 mm[Hg] Virginie Morton RN [employer]; [employer]. Comment on above: Patient Position: Sitting; Cuff Location : Left Arm; Cuff Size: Large 10-05-2017 10:10-0400 Heart rate 76 /min Virginie Morton RN [facility], [facility].; [employer]. Comment on above: Pattern: Regular 10-05-2017 10:10-0400 Systolic blood pressure 133 mm[Hg] Virginie Morton RN [facility], [facility].; [employer] Comment on above: Patient Position: Sitting; Cuff Location : Left Arm; Cuff Size: Large 05-04-2017 08:39-0500 Body height 177.8 cm Sejal Diaz LPN [facility], [employer], [employer]. 05-04-2017 08:39-0500 Body mass index (BMI) [Ratio] 31.28 kg/m2 Sejal Diaz LPN [facility], Inc.; [employer], [employer]. 05-04-2017 08:39-0500 Body surface area Derived from formula 2.17 m2 Sejal Diaz LPN [facility], [facility].; [employer], [employer]. 05-04-2017 08:39-0500 Body weight 98.88 kg Sejal Diaz LPN [facility], [facility].; [employer], [employer]. 05-04-2017 08:39-0500 Diastolic blood pressure 88 mm[Hg] Sejal Diaz LPN [facility], Inc.; [employer] Comment on above: Patient Position: Sitting; Cuff Location : Left Arm; Cuff Size: Standard 05-04-2017 08:39-0500 Heart rate 75 /min Sejal Diaz LPN [place] [employer] [facility], [employer].; [employer] Comment on above: Pattern: Regular 05-04-2017 08:39-0500 Systolic blood pressure 160 mm[Hg] Sejal Diaz LPN [place] [employer] [facility], [employer].; [employer] Comment on above: Patient Position: Sitting; Cuff Location : Left Arm; Cuff Size: Standard 04-13-2017 09:32-0500 Body height 177.8 cm Alireza Gutierrez MD Work Phone: [employer]; [employer] 04-13-2017 09:32-0500 Body mass index (BMI) [Ratio] 31.14 kg/m2 Alireza Gutierrez MD Work Phone: [employer]; [employer] 04-13-2017 09:32-0500 Body surface area Derived from formula 2.16 m2 Alireza Gutierrez MD Work Phone: [employer]; [employer] 04-13-2017 09:32-0500 Body weight 98.43 kg Alireza Gutierrez MD Work Phone: [employer]; [employer] 04-13-2017 09:32-0500 Diastolic blood pressure 84 mm[Hg] Alireza Gutierrez MD Work Phone: [employer]; [employer] Comment on above: Patient Position: Sitting; Cuff Location : Left Arm; Cuff Size: Standard 04-13-2017 09:32-0500 Heart rate 82 /min Alireza Gutierrez MD Work Phone: [employer]; [employer] Comment on above: Pattern: Regular 04-13-2017 09:32-0500 Systolic blood pressure 135 mm[Hg] Alireza Gutierrez MD Work Phone: [employer]; [employer] Comment on above: Patient Position: Sitting; Cuff Location : Left Arm; Cuff Size: Standard 11-29-2016 20:42-0400 BP Diastolic 85 mm[Hg] Rigoberto Prieto [facility] Work Phone: 11-29-2016 20:42-0400 BP Systolic 146 mm[Hg] Rigoberto Prieto [facility] Work Phone: 11-29-2016 20:42-0400 Pulse (Heart Rate) 93 /min Rigoberto Prieto [facility] Work Phone: 11-29-2016 20:42-0400 Pulse Oximetry 95 % Rigoberto Prieto [facility] Work Phone: 11-29-2016 20:42-0400 Respiratory Rate 18 /min Rigoberto Prieto [facility] Work Phone: 11-29-2016 18:08-0400 BMI (Body Mass Index) 30.13 kg/m2 Rigoberto Prieto [facility] Work Phone: 11-29-2016 18:08-0400 Body Temperature 98.8 [degF] Rigoberto Prieto [facility] Work Phone: 11-29-2016 18:08-0400 Height 177.8 cm Rigoberto Prieto [facility] Work Phone: 11-29-2016 18:08-0400 Weight 95.25 kg Rigoberto Prieto [facility] Work Phone: 10-16-2016 08:10-0400 Body weight 98.43 kg Sejal Diaz LPN [facility], Inc.; [employer], [employer]. 10-16-2016 08:10-0400 Diastolic blood pressure 68 mm[Hg] Sejal Diaz LPN [place] [employer] [facility], Inc.; [employer], [employer]. Comment on above: Patient Position: Sitting; Cuff Location : Left Arm; Cuff Size: Standard 10-16-2016 08:10-0400 Heart rate 85 /min Sejal Diaz LPN [place] [employer] [facility], Inc.; [employer] Comment on above: Pattern: Regular 10-16-2016 08:10-0400 Systolic blood pressure 126 mm[Hg] Sejal Diaz LPN [place] [employer] [facility], Inc.; [employer], [employer]. Comment on above: Patient Position: Sitting; Cuff Location : Left Arm; Cuff Size: Standard 04-17-2016 08:08-0500 Body height 177.8 cm Sejal Diaz LPN [place] [employer] [facility], Inc.; [employer] 04-17-2016 08:08-0500 Body mass index (BMI) [Ratio] 33.29 kg/m2 Sejal Diaz LPN [facility], Inc.; [employer] 04-17-2016 08:08-0500 Body surface area Derived from formula 2.22 m2 Sejal Diaz TOVA [place] [employer] [facility], Inc.; [employer], [employer]. 04-17-2016 08:08-0500 Body weight 105.24 kg Sejal Diaz MORNING SHOW HOST [facility], Inc.; [employer], [employer]. 04-17-2016 08:08-0500 Diastolic blood pressure 82 mm[Hg] Sejal Diaz MORNING SHOW HOST [facility], Inc.; [employer], [employer]. Comment on above: Patient Position: Sitting; Cuff Location : Left Arm; Cuff Size: Standard 04-17-2016 08:08-0500 Systolic blood pressure 144 mm[Hg] Sejal Diaz MORNING SHOW HOST [place] [employer] [facility], Inc.; [employer], [employer]. Comment on above: Patient Position: Sitting; Cuff Location : Left Arm; Cuff Size: Standard 02-21-2016 08:00-0400 Body temperature 97.3 [degF] Sejal Diaz TOVA [place] [employer] [facility], Inc.; [employer] 02-21-2016 08:00-0400 Body weight 102.97 kg Sejal Diaz MORNING SHOW HOST [place] [employer] [facility], [employer].; [employer], [employer]. 02-21-2016 08:00-0400 Diastolic blood pressure 85 mm[Hg] Sejal Diaz MORNING SHOW HOST [place] [employer] [facility], [employer].; [employer], [employer]. Comment on above: Patient Position: Sitting; Cuff Location : Left Arm; Cuff Size: Standard 02-21-2016 08:00-0400 Heart rate 83 /min Sejal Daiz TOVA [place] [employer] [facility], Inc.; [employer], [employer]. Comment on above: Pattern: Regular 02-21-2016 08:00-0400 Systolic blood pressure 130 mm[Hg] Sejal iDaz TOVA [employer] [facility], [employer].; [employer] Comment on above: Patient Position: Sitting; Cuff Location : Left Arm; Cuff Size: Standard 2016 08:07-0400 Body height 177.8 cm Carlito MONAHAN Work Phone: [employer], [employer].; [employer] 2016 08:07-0400 Body mass index (BMI) [Ratio] 32.43 kg/m2 Carlito CURRANC Work Phone: [employer]; [employer] 2016 08:07-0400 Body surface area Derived from formula 2.2 m2 Carlito Butt Manuel [employer]TAIN[employer] Work Phone: [employer]; [employer] 2016 08:07-0400 Body temperature 97.7 [degF] Carlito Jackson [employer] Work Phone: [employer]; [employer] 2016 08:07-0400 Body weight 102.51 kg Carlito Jackson [employer] Work Phone: [employer]; [employer] 2016 08:07-0400 Diastolic blood pressure 88 mm[Hg] Carlito Jackson [employer] Work Phone: [employer]; [employer] Comment on above: Patient Position: Sitting; Cuff Location : Left Arm; Cuff Size: Standard 2016 08:07-0400 Heart rate 62 /min Carlito Jackson [employer] Work Phone: [employer]; [employer] Comment on above: Pattern: Regular 2016 08:07-0400 Inhaled oxygen concentration 20 % Carlito Butt Manuel [employer] Work Phone: [employer]; [employer] Comment on above: Room air 2016 08:07-0400 Inhaled oxygen concentration 21 % Carlito Filomena Manuel [employer] Work Phone: [employer]; [employer] Comment on above: Room air 2016 08:07-0400 SaO2% (BldA) [Mass fraction] 92 % Carlito uBtt Manuel [employer] Work Phone: [employer]; [employer] 2016 08:07-0400 Systolic blood pressure 150 mm[Hg] Carlito MONAHAN Work Phone: [place] [employer] [facility].; [employer] Comment on above: Patient Position: Sitting; Cuff Location : Left Arm; Cuff Size: Standard 01-14-2016 07:12-0400 Body weight 105.69 kg Alireza Gutierrez MD Work Phone: [place] [employer] 01-14-2016 07:12-0400 Diastolic blood pressure 82 mm[Hg] Alireza Gutierrez MD Work Phone: [place] [employer].; [employer] Comment on above: Patient Position: Sitting; Cuff Location : Left Arm; Cuff Size: Standard 01-14-2016 07:12-0400 Heart rate 86 /min Alireza Gutierrez MD Work Phone: [employer], [employer].; [employer] Comment on above: Pattern: Regular 01-14-2016 07:12-0400 Systolic blood pressure 132 mm[Hg] Alireza Gutierrez MD Work Phone: [employer], [employer].; [employer] Comment on above: Patient Position: Sitting; Cuff Location : Left Arm; Cuff Size: Standard 07-09-2015 07:01-0500 Body height 177.8 cm Shanel Ashlee MORNING SHOW HOST [employer] [facility], Inc.; [employer] 07-09-2015 07:01-0500 Body mass index (BMI) [Ratio] 33 kg/m2 [facility] Ashlee [facility] [employer] [facility], Inc.; [employer] 07-09-2015 07:01-0500 Body surface area Derived from formula 2.22 m2 [facility], Inc.; [employer] 07-09-2015 07:01-0500 Body weight 104.33 kg [facility] Ashlee MORNING SHOW HOST [employer] [facility], Inc.; [employer], [employer]. 07-09-2015 07:01-0500 Diastolic blood pressure 84 mm[Hg] ShanelPadma Rosado TOVA [facility], Inc.; [employer] [facility], [employer]. Comment on above: Patient Position: Sitting; Cuff Location : Left Arm; Cuff Size: Large 07-09-2015 07:01-0500 Heart rate 118 /min Luisa Rosado [facility], Inc.; [employer], [employer]. Comment on above: Pattern: Regular 07-09-2015 07:01-0500 Systolic blood pressure 147 mm[Hg] Luisa Rosado [facility], Inc.; [employer] Comment on above: Patient Position: Sitting; Cuff Location : Left Arm; Cuff Size: Large 01-08-2015 08:24-0400 Body weight 98.88 kg Sejal Diaz [facility], Inc.; [employer], [employer]. 01-08-2015 08:24-0400 Diastolic blood pressure 72 mm[Hg] Sejal Diaz [facility], Inc.; [employer], [employer]. Comment on above: Patient Position: Sitting; Cuff Location : Left Arm; Cuff Size: Standard 01-08-2015 08:24-0400 Heart rate 80 /min Sejal Diaz [facility], Inc.; [employer], [employer]. Comment on above: Pattern: Regular 01-08-2015 08:24-0400 Systolic blood pressure 128 mm[Hg] Sejal Diaz [facility], Inc.; [employer], [employer]. Comment on above: Patient Position: Sitting; Cuff Location : Left Arm; Cuff Size: Standard 07-08-2014 08:06-0400 Body height 177.8 cm Luisa Rouse [facility], Inc.; [employer], [employer]. 07-08-2014 08:06-0400 Body mass index (BMI) [Ratio] 32.14 kg/m2 [facility], Inc.; [employer] 07-08-2014 08:06-0400 Body surface area Derived from formula 2.19 m2 [facility], Inc.; [employer] 07-08-2014 08:06-0400 Body weight 101.61 kg Shanel [facility], Inc.; [employer] [facility], [employer]. 07-08-2014 08:06-0400 Diastolic blood pressure 82 mm[Hg] Luisa Rosado LPN [facility], Inc.; [employer], [employer]. Comment on above: Patient Position: Sitting; Cuff Location : Left Arm; Cuff Size: Large 07-08-2014 08:06-0400 Heart rate 77 /min Luisa Rosado LPN [facility], Inc.; [employer], [employer]. Comment on above: Pattern: Regular 07-08-2014 08:06-0400 Systolic blood pressure 137 mm[Hg] Luisa Rosado LPN [facility], Inc.; [employer], [employer]. Comment on above: Patient Position: Sitting; Cuff Location : Left Arm; Cuff Size: Large 2014 15:11-0400 Body height 177.8 cm Luisa Rosado MORNING SHOW HOST [facility], Inc.; [employer] 2014 15:11-0400 Body mass index (BMI) [Ratio] 28.84 kg/m2 Luisa Rosado [facility], Inc.; [employer] 2014 15:11-0400 Body surface area Derived from formula 2.09 m2 Luisa Rosado MORNING SHOW HOST [facility], Inc.; [employer] 2014 15:11-0400 Body weight 91.17 kg Luisa Rosado MORNING SHOW HOST [facility], Inc.; [employer] 2014 15:11-0400 Diastolic blood pressure 70 mm[Hg] Luisa Rosado MORNING SHOW HOST [facility], Inc.; [employer], [employer]. Comment on above: Patient Position: Sitting; Cuff Location : Left Arm; Cuff Size: Large 2014 15:11-0400 Heart rate 80 /min Luisa Rosado MORNING SHOW HOST [facility], Inc.; [employer], [employer] Comment on above: Pattern: Regular 2014 15:11-0400 Systolic blood pressure 142 mm[Hg] Luisa Rosado MORNING SHOW HOST [facility], Inc.; [employer], [employer] Comment on above: Patient Position: Sitting; Cuff Location : Left Arm; Cuff Size: Large 01-06-2014 08:05-0400 Body weight 91.17 kg Sejal Diaz TOVA [facility], Inc.; [employer] 01-06-2014 08:05-0400 Diastolic blood pressure 73 mm[Hg] Sejal Diaz MORNING SHOW HOST [facility], Inc.; [employer] Comment on above: Patient Position: Sitting; Cuff Location : Left Arm; Cuff Size: Standard 01-06-2014 08:05-0400 Heart rate 76 /min Sejal Diaz TOVA [facility], Inc.; [employer] Comment on above: Pattern: Regular 01-06-2014 08:05-0400 Systolic blood pressure 112 mm[Hg] Sejal Diaz [facility], Inc.; [employer], [employer]. Comment on above: Patient Position: Sitting; Cuff Location : Left Arm; Cuff Size: Standard 07-01-2013 07:55-0500 Body height 177.8 cm Luisa Rosado [facility], Inc.; [employer] 07-01-2013 07:55-0500 Body mass index (BMI) [Ratio] 29.13 kg/m2 Luisa Rosado [facility], Inc.; [employer] 07-01-2013 07:55-0500 Body surface area Derived from formula 2.1 m2 ShanelPadma Rileyey MORNING SHOW HOST [facility], Inc.; [employer] [facility], Inc. 07-01-2013 07:55-0500 Body weight 92.08 kg Luisa Rosado [facility], Inc.; [employer], [employer]. 07-01-2013 07:55-0500 Diastolic blood pressure 84 mm[Hg] Luisa Rosado [facility], Inc.; [employer], [employer]. Comment on above: Patient Position: Sitting; Cuff Location : Left Arm; Cuff Size: Large 07-01-2013 07:55-0500 Heart rate 106 /min Luisa Rosado [facility], Inc.; [employer] Comment on above: Pattern: Regular 07-01-2013 07:55-0500 Systolic blood pressure 127 mm[Hg] Luisa Rosado [facility], Inc.; [employer]. Comment on above: Patient Position: Sitting; Cuff Location : Left Arm; Cuff Size: Large 12-31-2012 08:26-0400 Body height 177.8 cm Shilpa Brown [facility] [employer]. 12-31-2012 08:26-0400 Body mass index (BMI) [Ratio] 29.7 kg/m2 [facility] [employer] [facility], Inc.; [employer]. 12-31-2012 08:26-0400 Body surface area Derived from formula 2.12 m2 [facility]ilpa [facility] [employer] [facility], [facility].; [employer]. 12-31-2012 08:26-0400 Body weight 93.9 kg Shilpa M Leanna [facility] [employer] [facility] HospitalYa[facility].; [employer]. 12-31-2012 08:26-0400 Diastolic blood pressure 74 mm[Hg] Shilpa Brown Leanna [facility] [employer] [facility] HospitalYa[facility].; [employer] Comment on above: Patient Position: Sitting; Cuff Location : Left Arm; Cuff Size: Standard 12-31-2012 08:26-0400 Heart rate 99 /min [facility] [employer] [facility], [employer].; [employer] Comment on above: Pattern: Regular 12-31-2012 08:26-0400 Systolic blood pressure 135 mm[Hg] Shilpa Ram [facility] [employer] [facility].; [employer] Comment on above: Patient Position: Sitting; Cuff Location : Left Arm; Cuff Size: Standard 08-22-2012 09:49-0400 Body height 177.8 cm Di Orozco [facility] [employer] [facility], [employer].; [employer]. 08-22-2012 09:49-0400 Body mass index (BMI) [Ratio] 31.76 kg/m2 Di Orozco [facility] [employer] [facility].; [employer]. 08-22-2012 09:49-0400 Body surface area Derived from formula 2.18 m2 Di Rodriguezluis BERNARDO [facility], Inc.; [employer] [facility], Inc. 08-22-2012 09:49-0400 Body weight 100.42 kg Di Rodriguezaddykaren TOVA [facility], Inc.; [employer] 08-22-2012 09:49-0400 Diastolic blood pressure 82 mm[Hg] Di Ernesto [facility], Inc.; [employer], [employer] Comment on above: Patient Position: Sitting; Cuff Location : Left Arm; Cuff Size: Standard 08-22-2012 09:49-0400 Heart rate 82 /min Di Ernesto BERNARDO [facility], Inc.; [employer] Comment on above: Pattern: Regular 08-22-2012 09:49-0400 Systolic blood pressure 136 mm[Hg] Di Rodriguezluis [facility], Inc.; [employer], [employer] Comment on above: Patient Position: Sitting; Cuff Location : Left Arm; Cuff Size: Standard 03-05-2012 07:59-0500 Body height 177.8 cm Luisa Rosado MORNING SHOW HOST [facility], Inc.; [employer] 03-05-2012 07:59-0500 Body mass index (BMI) [Ratio] 32 kg/m2 Luisa Rosado TOVA [facility], Inc.; [employer] [facility], Inc. 03-05-2012 07:59-0500 Body surface area Derived from formula 2.19 m2 Luisa Guerrerouckey TOVA [facility], Inc.; [employer], [employer] 03-05-2012 07:59-0500 Body weight 101.15 kg Luisa Guerrerouckey [facility], Inc.; [employer], [employer] 03-05-2012 07:59-0500 Diastolic blood pressure 88 mm[Hg] Luisa Rosado TOVA [facility], Inc.; [employer], [employer] Comment on above: Patient Position: Sitting; Cuff Location : Left Arm; Cuff Size: Large 03-05-2012 07:59-0500 Heart rate 101 /min Luisa Rosado LPN [facility], Inc.; [employer] [facility], [employer]. Comment on above: Pattern: Regular 03-05-2012 07:59-0500 Systolic blood pressure 129 mm[Hg] Luisa Rosado LPN [facility], Inc.; [employer], [employer]. Comment on above: Patient Position: Sitting; Cuff Location : Left Arm; Cuff Size: Large 09-05-2011 07:57-0400 Body height 177.8 cm Luisa Rosado LPN [facility], Inc.; [employer] [facility], [employer]. 09-05-2011 07:57-0400 Body mass index (BMI) [Ratio] 31.14 kg/m2 Luisa Rosado [facility], Inc.; [employer] [facility], [employer]. 09-05-2011 07:57-0400 Body surface area Derived from formula 2.16 m2 Shanel Ashlee MORNING SHOW HOST [facility], Inc.; [employer] [facility], [employer]. 09-05-2011 07:57-0400 Body weight 98.43 kg Luisa Rosado LPN [facility], [facility].; [employer] [facility], [employer]. 09-05-2011 07:57-0400 Diastolic blood pressure 72 mm[Hg] Luisa Rosado LPN [facility], [facility] [employer] [facility], [employer]. Comment on above: Patient Position: Sitting; Cuff Location : Left Arm; Cuff Size: Large 09-05-2011 07:57-0400 Heart rate 81 /min Luisa Rosado LPN [facility], [facility] [employer] [facility], [employer]. Comment on above: Pattern: Regular 09-05-2011 07:57-0400 Systolic blood pressure 125 mm[Hg] Luisa Rosado MORNING SHOW HOST [facility], [facility] [employer], [employer]. Comment on above: Patient Position: Sitting; Cuff Location : Left Arm; Cuff Size: Large 03-07-2011 08:09-0500 Body height 177.8 cm Luisa Rosado MORNING SHOW HOST [facility] [employer], [employer]. 03-07-2011 08:09-0500 Body mass index (BMI) [Ratio] 31.42 kg/m2 Luisa Rosado MORNING SHOW HOST [facility], [facility].; [employer] [facility], Inc. 03-07-2011 08:09-0500 Body surface area Derived from formula 2.17 m2 Luisa Rosado MORNING SHOW HOST [facility].; [employer] [facility], Inc. 03-07-2011 08:09-0500 Body weight 99.34 kg Luisa Rosado [facility], [facility].; [employer], [employer]. 03-07-2011 08:09-0500 Diastolic blood pressure 80 mm[Hg] Luisa Rosado LPN [facility], [facility] [employer], [employer]. Comment on above: Patient Position: Sitting; Cuff Location : Left Arm; Cuff Size: Large 03-07-2011 08:09-0500 Heart rate 80 /min Luisa Rosado MORNING SHOW HOST [facility] [employer], [employer]. Comment on above: Pattern: Regular 03-07-2011 08:09-0500 Systolic blood pressure 129 mm[Hg] Luisa Rosado MORNING SHOW HOST [facility] [employer], [employer]. Comment on above: Patient Position: Sitting; Cuff Location : Left Arm; Cuff Size: Large 09-06-2010 14:17-0400 Body weight 99.79 kg Luisa Rosado MORNING SHOW HOST [facility].; [employer], Inc[employer] 09-06-2010 14:17-0400 Diastolic blood pressure 80 mm[Hg] Luisa Rosado MORNING SHOW HOST [facility] [employer], Inc. Comment on above: Patient Position: Sitting; Cuff Location : Left Arm; Cuff Size: Large 09-06-2010 14:17-0400 Heart rate 77 /min Luisa Rosado MORNING SHOW HOST [facility] [employer], [employer]. Comment on above: Pattern: Regular 09-06-2010 14:17-0400 Systolic blood pressure 140 mm[Hg] Luisa Rosado MORNING SHOW HOST [facility] [employer], [employer]. Comment on above: Patient Position: Sitting; Cuff Location : Left Arm; Cuff Size: Large 08-17-2010 16:28-0400 Body height 177.8 cm Ivette Weller MORNING SHOW HOST [facility].; [employer], Inc[employer] 08-17-2010 16:28-0400 Body mass index (BMI) [Ratio] 31.77 kg/m2 Ivette Wander HardwickRandall MORNING SHOW HOST [facility].; [employer], Inc[employer] 08-17-2010 16:28-0400 Body surface area Derived from formula 2.18 m2 Ivette Wander HardwickNithin MORNING SHOW HOST [place] [employer] [facility], Inc.; [employer], Inc[employer] 08-17-2010 16:28-0400 Body temperature 99.7 [degF] Ivette Wander HardwickNithin [facility], Inc.; [employer], Inc. Comment on above: Method: Tympanic 08-17-2010 16:28-0400 Body weight 100.43 kg Ivette Weller [facility] [employer] [facility], Inc.; [employer], Inc[employer] 08-17-2010 16:28-0400 Diastolic blood pressure 80 mm[Hg] Ivette Wander HardwickNithin [facility] [employer] [facility] [employer], Inc[employer] Comment on above: Patient Position: Sitting; Cuff Location : Left Arm; Cuff Size: Large 08-17-2010 16:28-0400 Heart rate 88 /min Ivette Wander Weller [facility], [facility].; [employer], [employer] Comment on above: Pattern: Regular 08-17-2010 16:28-0400 Systolic blood pressure 144 mm[Hg] Ivette Wander HardwickNithin MORNING SHOW HOST [employer] [facility], Inc.; [employer], Inc[employer] Comment on above: Patient Position: Sitting; Cuff Location : Left Arm; Cuff Size: Large 07-19-2010 08:18-0400 Body height 177.8 cm Luisa Rosado [facility], Inc.; [employer], [employer]. 07-19-2010 08:18-0400 Body mass index (BMI) [Ratio] 31.28 kg/m2 Luisa Rosado [facility], Inc.; [employer], Inc[employer] 07-19-2010 08:18-0400 Body surface area Derived from formula 2.17 m2 Luisa Rosado [facility], Inc.; [employer]. 07-19-2010 08:18-0400 Body weight 98.88 kg Luisa Rosado [facility], [facility].; [employer], Inc. 07-19-2010 08:18-0400 Diastolic blood pressure 73 mm[Hg] Luisa Rosado [facility].; [employer], [employer]. Comment on above: Patient Position: Sitting; Cuff Location : Left Arm; Cuff Size: Large 07-19-2010 08:18-0400 Heart rate 81 /min Luisa Rosado [facility] [employer], [employer]. Comment on above: Pattern: Regular 07-19-2010 08:18-0400 Systolic blood pressure 130 mm[Hg] Luisa Rosado [facility] [employer], Inc[employer] Comment on above: Patient Position: Sitting; Cuff Location : Left Arm; Cuff Size: Large 06-10-2010 11:00-0500 Body temperature 98 [degF] Sejalmaria teresa Diaz [facility].; [employer], Inc[employer] 06-10-2010 11:00-0500 Body weight 98.88 kg Sejal Diaz [facility] [employer] [facility], Inc.; [employer], [employer]. 06-10-2010 11:00-0500 Diastolic blood pressure 76 mm[Hg] Sejalmaria teresa Diaz [facility] [employer] [facility], Inc.; [employer], [employer]. Comment on above: Patient Position: Sitting; Cuff Location : Left Arm; Cuff Size: Standard 06-10-2010 11:00-0500 Heart rate 77 /min Sejal Diaz MORNING SHOW HOST [place] [employer] [facility], Inc.; [employer] Comment on above: Pattern: Regular 06-10-2010 11:00-0500 Systolic blood pressure 137 mm[Hg] Sejal E Alisson [facility] [employer] [facility], [employer].; [employer] Comment on above: Patient Position: Sitting; Cuff Location : Left Arm; Cuff Size: Standard 05-10-2010 09:13-0500 Body height 177.8 cm Luisa Rosado [facility] [employer] [facility], Inc.; [employer], [employer]. 05-10-2010 09:13-0500 Body mass index (BMI) [Ratio] 30.99 kg/m2 Luisa Rosado MORNING SHOW HOST [place] [employer] [facility], Inc.; [employer], Inc[employer] 05-10-2010 09:13-0500 Body surface area Derived from formula 2.16 m2 Luisa Rosado [facility].; [employer], Inc. 05-10-2010 09:13-0500 Body weight 97.98 kg Luisa Rosado [facility] [employer], Inc[employer] 05-10-2010 09:13-0500 Diastolic blood pressure 74 mm[Hg] Luisa Rosado [facility] [employer] [facility], Inc.; [employer], [employer] Comment on above: Patient Position: Sitting; Cuff Location : Left Arm; Cuff Size: Large 05-10-2010 09:13-0500 Heart rate 72 /min Luisa Rosado [facility] [employer], [employer] Comment on above: Pattern: Regular 05-10-2010 09:13-0500 Systolic blood pressure 120 mm[Hg] Luisa Rosado [facility] [employer] [facility], Inc.; [employer], [employer] Comment on above: Patient Position: Sitting; Cuff Location : Left Arm; Cuff Size: Large 03-09-2010 15:05-0500 Body height 177.8 cm Di Orozco LPN [place] [employer] [facility], Inc.; [employer], [employer] 03-09-2010 15:05-0500 Body mass index (BMI) [Ratio] 30.49 kg/m2 Di Orozco MORNING SHOW HOST [place] [employer] [facility], Inc.; [employer], Inc[employer] 03-09-2010 15:05-0500 Body surface area Derived from formula 2.14 m2 Di Orozoc [facility] [employer] [facility], Inc.; [employer], Inc[employer] 03-09-2010 15:05-0500 Body weight 96.39 kg Di Ernesto [facility] [employer] [facility], Inc.; [employer], [employer] 03-09-2010 15:05-0500 Diastolic blood pressure 75 mm[Hg] [facility] [employer] [facility], Inc.; [employer], [employer] Comment on above: Patient Position: Sitting; Cuff Location : Left Arm; Cuff Size: Standard 03-09-2010 15:05-0500 Heart rate 73 /min Di [facility]roczo LPN [facility] [employer] Comment on above: Pattern: Regular 03-09-2010 15:05-0500 Systolic blood pressure 129 mm[Hg] Di Orozco LPN [employer] [facility] [employer] Comment on above: Patient Position: Sitting; Cuff Location : Left Arm; Cuff Size: Standard Encounters Encounter Date Encounter Type Care Provider Facility Start: 10-21-2024 ambulatory Alireza Gutierrez Facility:[facility] Start: 10-03-2024 End: 10-03-[address] Albert Burt MD -[facility] Work Phone: Start: 10-03-2024 End: 10-03-[address] Alireza Gutierrez MD Work Phone: [facility] Work Phone: Start: 07-01-2024 End: 07-01-2024 Patient encounter procedure Alireza Gutierrez MD [facility]: [facility] [employer] Start: 07-01-2024 End: 07-01-2024 Periodic preventive med est patient 65yrs& older Alireza Gutierrez MD Work [facility]: [facility] Start: 07-01-2024 Patient encounter procedure Jackie Keene LPN [place] [employer] [facility] Start: 05-14-2024 End: 05-14-2024 Orders Alireza Gutierrez MD [facility] [employer] [facility] Start: 05-14-2024 ambulatory [facility] Start: 04-29-2024 End: 04-29-2024 ambulatory Alireza Gutierrez Facility:[facility] Start: 04-24-2024 End: 04-24-2024 ambulatory [facility] Facility:[facility] Start: 04-15-2024 End: 04-15-2024 Ravi Gutierrez MD Work Phone: [employer] Start: 04-11-2024 End: 04-11-2024 ambulatory Hema Ureña Facility:[facility] Start: 04-03-2024 End: 04-03-2024 Office outpatient visit 15 minutes Alireza Gutierrez MD Work Phone: [employer] Start: 03-11-2024 End: 03-11-2024 ambulatory Alireza Gutierrez Facility:[facility] Start: 02-06-2024 End: 02-06-2024 Orders Alireza Gutierrez MD Work Phone: [employer] Start: 12-05-2023 ambulatory ALIREZA GUTIERREZ [facility] Start: 12-05-2023 End: 12-05-2023 Orders Alireza Gutierrez MD Work Phone: [employer] Start: 11-14-2023 End: 11-14-2023 Office outpatient visit 25 minutes Alireza Gutierrez MD Work Phone: [employer] Start: 11-14-2023 Follow-up encounter Alireza burch MD Work Phone: [employer] Start: 05-15-2023 End: 05-15-2023 Patient encounter procedure Alireza Gutierrez MD Work Phone: [employer]; [employer] Start: 05-15-2023 End: 05-15-2023 Periodic preventive med est patient 65yrs& older Alireza Gutierrez MD Work Phone: [employer] Start: 05-08-2023 End: 05-08-2023 Orders Alireza Gutierrez MD Work Phone: [employer] Start: 05-07-2023 End: 05-07-[address] Alireza Gutierrez Work Phone: [facility] Work Phone: Start: 05-07-2023 End: 05-07-[address] Alireza Gutierrez Work Phone: [facility] Work Phone: Start: 04-16-2023 End: 04-16-[address] Alireza Gutierrez Work Phone: [facility] Work Phone: Start: 04-13-2023 End: 04-13-[address] Alireaz Gutierrez Work Phone: [facility] Work Phone: Start: 04-13-2023 End: 04-13-[address] Alireza Gutierrez Work Phone: [facility] Work Phone: Start: 11-15-2022 End: 11-15-2022 Office outpatient visit 15 minutes Alireza Gutierrez MD Work Phone: [employer] Start: 05-17-2022 End: 05-17-2022 Patient encounter procedure Alireza Gutierrez MD Work Phone: [employer]; [employer] Start: 05-17-2022 End: 05-17-2022 Periodic preventive med est patient 65yrs& older Alireza Gutierrez MD Work Phone: [employer] Start: 05-11-2022 End: 05-11-2022 ambulatory [facility] Work Phone: Start: 05-11-2022 End: 05-11-2022 Patient encounter procedure [facility] Start: 05-10-2022 End: 05-11-2022 Orders Alireza Gutierrez MD Work Phone: [employer] Start: 04-05-2022 End: 04-05-2022 ambulatory [facility] Work Phone: Start: 04-05-2022 End: 04-05-2022 Patient encounter procedure [facility] Start: 04-03-2022 End: 04-03-2022 Orders Alireza Gutierrez MD Work Phone: [employer] Start: 11-02-2021 End: 11-02-2021 Orders Alireza Gutierrez MD Work Phone: [employer] Start: 11-02-2021 End: 11-02-2021 Office outpatient visit 25 minutes Alireza Gutierrez MD Work Phone: [employer] Start: 08-18-2021 End: 08-18-2021 [facility] Start: 08-05-2021 End: 08-05-2021 Admission to same day surgery [facility] Start: 04-13-2021 End: 04-13-2021 Patient encounter procedure Alireza Gutierrez MD Work Phone: [employer]; [employer] Start: 04-13-2021 End: 04-13-2021 Periodic preventive med est patient 65yrs& older Alireza Gutierrez MD Work Phone: [employer] Start: 04-01-2021 End: 04-04-2021 Orders Alireza Gutierrez MD Work Phone: [employer] Start: 10-19-2020 End: 10-19-2020 Office outpatient visit 25 minutes Alireza Gutierrez MD Work Phone: [employer] Start: 04-20-2020 End: 04-20-2020 Patient encounter procedure Alireza Gutierrez MD Work Phone: [employer]; [employer] Start: 04-20-2020 End: 04-20-2020 Periodic preventive med est patient 65yrs& older Alireza Gutierrez MD Work Phone: [employer] Start: 04-13-2020 End: 04-14-2020 Orders Alireza Gutierrez MD Work Phone: [employer] Start: 02-09-2020 End: 02-09-2020 Orders Alireza Gutierrez MD Work Phone: [employer] Start: 09-29-2019 End: 09-29-2019 Office outpatient visit 15 minutes Alireza Gutierrez MD Work Phone: [employer] Start: 04-16-2019 End: 04-16-2019 Patient encounter procedure Alireza Gutierrez MD Work Phone: [employer]; [employer] Start: 04-16-2019 End: 04-16-2019 Periodic preventive med est patient 65yrs& older Alireza Gutierrez MD Work Phone: [employer] Start: 04-04-2019 End: 04-07-2019 Orders Alireza Gutierrez MD Work Phone: [employer] Start: 01-15-2019 End: 01-15-2019 Telephone follow-up Alireza Gutierrez MD Work Phone: [employer] Start: 10-18-2018 End: 10-18-2018 Office outpatient visit 25 minutes Alireza Gutierrez MD Work Phone: [employer] Start: 04-17-2018 End: 04-17-2018 Office outpatient visit 15 minutes Alireza Gutierrez MD Work Phone: [employer] Start: 10-05-2017 End: 10-05-2017 Patient encounter procedure Alireza Gutierrez MD Work Phone: [employer]; [employer] Start: 10-05-2017 End: 10-05-2017 Periodic preventive med est patient 65yrs& older Alireza Gutierrez MD Work Phone: [employer] Start: 09-21-2017 End: 09-21-2017 Ravi Gutierrez MD Work Phone: [employer] Start: 05-04-2017 End: 05-04-2017 Orders Alireza Gutierrez MD Work Phone: [employer] Start: 05-04-2017 End: 05-04-2017 Office outpatient visit 15 minutes Alireza Gutierrez MD Work Phone: [employer] Start: 04-13-2017 End: 04-13-2017 Office outpatient visit 15 minutes Alireza Gutierrez MD Work Phone: [employer] Start: 04-10-2017 End: 04-10-2017 Historical Summary Alireza Gutierrez MD Work Phone: [employer] Start: 04-09-2017 End: 04-10-2017 Orders Alireza Gutierrez MD Work Phone: [employer] Start: 04-04-2017 End: 04-04-2017 Orders Alireza Gutierrez MD Work Phone: [employer] Start: 04-03-2017 End: 04-03-2017 Orders Alireza Gutierrez MD Work Phone: [employer] Start: 11-29-2016 End: 11-30-2016 Emergency department patient visit [facility] Start: 11-29-2016 End: 11-29-2016 Emergency department patient visit [facility] Work Phone: [facility] Emergency Department Comment on above: Hyponatremia (Primar y Dx);Hypokalemia;Alcohol intoxication, with unspecified complication (HCC) Start: 10-16-2016 End: 10-16-2016 Office outpatient visit 15 minutes Alireza Gutierrez MD Work Phone: [employer] Start: 08-01-2016 End: 08-01-2016 Medication Alireza Gutierrez MD Work Phone: [employer] Start: 05-30-2016 End: 05-30-2016 Historical Summary Alireza Gutierrez MD Work Phone: [employer] Start: 04-17-2016 End: 04-17-2016 Orders Alireza Gutierrez MD Work Phone: [employer] Start: 04-17-2016 End: 04-17-2016 Patient encounter procedure Alireza Gutierrez MD Work Phone: [employer] Start: 02-21-2016 End: 02-21-2016 Office outpatient visit 15 minutes Alireza Gutierrez MD Work Phone: [employer] Start: 2016 End: 2016 Patient encounter procedure Alireza Gutierrez MD Work Phone: [employer] Start: 01-14-2016 End: 01-14-2016 Patient encounter procedure Alireza Gutierrez MD Work Phone: [employer] Start: 07-13-2015 End: 07-13-2015 Orders Alireza Gutierrez MD Work Phone: [employer] Start: 07-09-2015 End: 07-09-2015 Office outpatient visit 15 minutes Alireza Gutierrez MD Work Phone: [employer] Start: 04-15-2015 End: 04-15-2015 Nursing evaluation of patient and report Alireza Gutierrez MD Work Phone: [employer] Start: 01-08-2015 End: 01-08-2015 Office outpatient visit 15 minutes Alireza Gutierrez MD Work Phone: [employer] Start: 11-23-2014 End: 11-23-2014 Medication Alireza Gutierrez MD Work Phone: [employer] Start: 07-08-2014 End: 07-08-2014 Office outpatient visit 15 minutes Alireza Gutierrez MD Work Phone: [employer] Start: 06-23-2014 End: 06-24-2014 Orders Alireza Gutierrez MD Work Phone: [employer] Start: 02-24-2014 End: 02-24-2014 Orders Alireza Gutierrez MD Work Phone: [employer] Start: 2014 End: 2014 Patient encounter procedure Alireza Gutierrez MD Work Phone: [employer] Start: 01-06-2014 End: 01-06-2014 Office outpatient visit 25 minutes Alireza Gutierrez MD Work Phone: [employer] Start: 12-23-2013 End: 12-23-2013 Historical Summary Alireza Gutierrez MD Work Phone: [employer] Start: 07-01-2013 End: 07-01-2013 Patient encounter procedure Alireza Gutierrez MD Work Phone: [employer] Start: 03-17-2013 End: 03-17-2013 Medication Alireza Gutierrez MD Work Phone: [employer] Start: 12-31-2012 End: 12-31-2012 Patient encounter procedure Alireza Gutierrez MD Work Phone: [employer] Start: 09-06-2012 End: 09-06-2012 Orders Alireza Gutierrez MD Work Phone: [employer] Start: 09-03-2012 End: 09-03-2012 Patient encounter procedure Alireza Gutierrez MD Work Phone: [employer] Start: 08-30-2012 End: 08-30-2012 Orders Alireza Gutierrez MD Work Phone: [employer] Start: 08-23-2012 End: 08-23-2012 Orders Alireza Gutierrez MD Work Phone: [employer] Start: 08-22-2012 End: 08-22-2012 Orders Alireza Gutierrez MD Work Phone: [employer] Start: 08-22-2012 End: 08-22-2012 Patient encounter procedure Alireza Gutierrez MD Work Phone: [employer] Start: 03-05-2012 End: 03-05-2012 Patient encounter procedure Alireza Gutierrez MD Work Phone: [employer] Start: 02-29-2012 End: 03-01-2012 Orders Alireza Gutierrez MD Work Phone: [employer] Start: 12-25-2011 End: 12-25-2011 Medication Alireza Gutierrez MD Work Phone: [employer] Start: 09-05-2011 End: 09-05-2011 Patient encounter procedure Alireza Gutierrez MD Work Phone: [employer] Start: 03-07-2011 End: 03-07-2011 Patient encounter procedure Alireza Gutierrez MD Work Phone: [employer] Start: 11-23-2010 End: 11-23-2010 Orders Alireza Gutierrez MD Work Phone: [employer] Start: 11-23-2010 End: 11-23-2010 Medication Alireza Gutierrez MD Work Phone: [employer] Start: 09-14-2010 End: 09-14-2010 Medication Alireza Gutierrez MD Work Phone: [employer] Start: 09-06-2010 End: 09-06-2010 Patient encounter procedure Alireza Gutierrez MD Work Phone: [employer] Start: 08-17-2010 End: 08-18-2010 Patient encounter procedure Alireza Gutierrez MD Work Phone: [employer] Start: 07-19-2010 End: 07-19-2010 Patient encounter procedure Alireza Gutierrez MD Work Phone: [employer] Start: 06-10-2010 End: 06-10-2010 Patient encounter procedure Alireza Gutierrez MD Work Phone: [employer] Start: 05-10-2010 End: 05-10-2010 Medication Alireza Gutierrez MD Work Phone: [employer] Start: 05-10-2010 End: 05-10-2010 Patient encounter procedure Alireza Gutierrez MD Work Phone: [employer] Start: 03-09-2010 End: 03-09-2010 Patient encounter procedure Alireza Gutierrez MD Work Phone: [employer] Patient encounter procedure Patty Gamboa MORNING SHOW HOST [employer]; [employer] [facility]. Patient encounter procedure Johnson Bernal MORNING SHOW [employer]; [employer] Patient encounter procedure Shanel Ashlee MORNING SHOW [employer]; [employer] [facility]. Patient encounter procedure Jackie Keene MORNING SHOW HOST [employer]; [employer] Procedures Date Procedure Procedure Detail Performing Clinician Start: 07-01-2024 End: 07-01-2024 Adv care pln/ no alt dcsn mkr docd or refusal Alireza Gutierrez MD Work Phone: Start: 07-01-2024 End: 07-01-2024 Depression screening Alireza Gutierrez MD Work Phone: Start: 07-01-2024 End: 07-01-2024 Falls risk assessment documented Alireza Gutierrez MD Work Phone: Start: 07-01-2024 End: 07-01-2024 Pos clin depres scrn f/u doc Alireza Gutierrez MD Work Phone: Start: 07-01-2024 End: 07-01-2024 PPPS, subseq visit Alireza Gutierrez MD Work Phone: Start: 07-01-2024 End: 07-01-2024 Pt falls assess docd w/o fall/injury past year Alireza Gutierrez MD Work Phone: Start: 07-01-2024 End: 07-01-2024 Scr dep neg, no plan reqd Alireza Gutierrez MD Work Phone: Start: 05-14-2024 End: 05-14-2024 Comprehensive metabolic 2000 panel - Serum or Plasma Jackie Keene LPN Start: 05-14-2024 End: 05-14-2024 Lab findings surveillance Jackie Keene LPN Comment on above: 104 Start: 05-14-2024 End: 05-14-2024 Lipid panel results documented & reviewed Jackie Keene LPN Comment on above: TC 147 HDL 76 LDL 59 TRI 43 Start: 05-14-2024 End: 05-14-2024 Thyrotropin [Units/volume] in Serum or Plasma Jackie Keene LPN Comment on above: 2.30 Start: 12-05-2023 End: 12-06-2023 Radex hip unilateral with pelvis 2-3 views Alireza Gutierrez MD Work Phone: Start: 05-15-2023 End: 05-15-2023 Adv care pln tlkd & alt dcsn maker docd Alireza Gutierrez MD Work Phone: Start: 05-15-2023 End: 05-15-2023 Depression screening Alireza Gutierrez MD Work Phone: Start: 05-15-2023 End: 05-15-2023 Falls risk assessment documented Alireza Gutierrez MD Work Phone: Start: 05-15-2023 End: 05-15-2023 PPPS, subseq visit Alireza Gutierrez MD Work Phone: Start: 05-15-2023 End: 05-15-2023 Pt falls assess docd 2/> falls/fall w/injury/yr Alireza Gutierrez MD Work Phone: Start: 05-15-2023 End: 05-15-2023 Scr dep neg, no plan reqd Alireza Gutierrez MD Work Phone: Start: 05-08-2023 End: 05-08-2023 Lab findings surveillance Luisa Guerrerodana conway [employer] Comment on above: 91 Start: 05-08-2023 End: 05-08-2023 Lipid panel results documented & reviewed Luisa Guerrerouckey [employer] Start: 05-07-2023 MRI of cervical spine Karen Gutierrez Work Phone: Start: 05-07-2023 MRI of lumbar spine Dr. Alireza Gutierrez Work Phone: Start: 05-17-2022 End: 05-17-2022 Adv care pln/ no alt dcsn mkr docd or refusal Alireza Gutierrez MD Work Phone: Start: 05-17-2022 End: 05-17-2022 Depression screening Alireza Gutierrez MD Work Phone: Start: 05-17-2022 End: 05-17-2022 Falls risk assessment documented Alireza Gutierrez MD Work Phone: Start: 05-17-2022 End: 05-17-2022 PPPS, subseq visit Alireza Gutierrez MD Work Phone: Start: 05-17-2022 End: 05-17-2022 Pt falls assess docd w/o fall/injury past year Alireza Gutierrez MD Work Phone: Start: 05-17-2022 End: 05-17-2022 Scr dep neg, no plan reqd Alireza Gutierrez MD Work Phone: Start: 05-11-2022 Computed tomography of abdomen and pelvis with contrast Start: 05-10-2022 End: 05-10-2022 Lab findings surveillance Shilpa scott [employer] Comment on above: 102 CMP Start: 05-10-2022 End: 05-10-2022 Lipid panel results documented & reviewed Shilpa Ram [employer] Start: 05-10-2022 End: 05-10-2022 Prostate specific antigen measurement Shilpa Ram [employer] Comment on above: 0.57 Start: 03-30-2022 End: 03-30-2022 Screening colonoscopy Alireza Gutierrez MD Work Phone: Comment on above: Edilberto, has some rad iation colitis, no further testing needed Start: 08-18-2021 Fluoroscopic guidance Start: 08-18-2021 Open reduction with internal fixation Start: 08-18-2021 Radiography of ankle Start: 08-05-2021 Fluoroscopic guidance Start: 08-05-2021 Radiography of ankle Start: 08-05-2021 ORIF, Ankle, Externa l Fixation (Left) Start: 08-05-2021 Plain chest X-ray Start: 04-13-2021 End: 04-13-2021 Depression screening Alireza Gutierrez MD Work Phone: Start: 04-13-2021 End: 04-13-2021 Falls risk assessment documented Alireza Gutierrez MD Work Phone: Start: 04-13-2021 End: 04-13-2021 PPPS, subseq visit Alireza Gutierrez MD Work Phone: Start: 04-13-2021 End: 04-13-2021 Pt falls assess docd w/o fall/injury past year Alireza Gutierrez MD Work Phone: Start: 04-13-2021 End: 04-13-2021 Scr dep neg, no plan reqd Alireza Gutierrez MD Work Phone: Start: 04-01-2021 End: 04-01-2021 Flu immunize order/admin FLOAT NURSE Start: 04-20-2020 End: 04-20-2020 Depression screening Alireza Gutierrez MD Work Phone: Start: 04-20-2020 End: 04-20-2020 Falls risk assessment documented Alireza Gutierrez MD Work Phone: Start: 04-20-2020 End: 04-20-2020 No Known Past Surgical History Shilpa Brown Leanna SPENCERN Start: 04-20-2020 End: 04-20-2020 PPPS, subseq visit Alireza Gutierrez MD Work Phone: Start: 04-20-2020 End: 04-20-2020 Pt falls assess docd w/o fall/injury past year Alireza Gutierrez MD Work Phone: Start: 04-20-2020 End: 04-20-2020 Scr dep neg, no plan reqd Alireza Gutierrez MD Work Phone: Start: 04-13-2020 End: 04-13-2020 Comprehensive metabolic 2000 panel - Serum or Plasma Shilpa Ram LPN Start: 04-16-2019 End: 04-16-2019 Depression screening Alireza Gutierrez MD Work Phone: Start: 04-16-2019 End: 04-16-2019 Falls risk assessment documented Alireza Gutierrez MD Work Phone: Start: 04-16-2019 End: 04-16-2019 Flu immunize order/admin Alireza Jones Work Phone: Start: 04-16-2019 End: 04-16-2019 PPPS, subseq visit Alireza Gutierrez MD Work Phone: Start: 04-16-2019 End: 04-16-2019 Pt falls assess docd 2/> falls/fall w/injury/yr Alireza Gutierrez MD Work Phone: Start: 04-16-2019 End: 04-16-2019 Scr dep neg, no plan reqd Alireza Gutierrez MD Work Phone: Start: 06-12-2018 End: 06-12-2018 Transurethral Resection of Bladder Tumor Shilpa Stephanie Ram LPN Start: 10-05-2017 End: 10-05-2017 Most recent diastolic blood pressure < 80 mm hg Alireza Gutierrez MD Work Phone: Start: 10-05-2017 End: 10-05-2017 Most recent systolic blood press 130-139mm hg Alireza Gutierrez MD Work Phone: Start: 10-05-2017 End: 10-05-2017 PPPS, subseq visit Alireza Gutierrez MD Work Phone: Start: 10-05-2017 End: 10-05-2017 Falls risk assessment documented Alireza Gutierrez MD Work Phone: Start: 10-05-2017 End: 10-05-2017 Depression screen annual Alireza Jones Work Phone: Start: 05-04-2017 End: 05-04-2017 Body mass index documented Alireza Gutierrez MD Work Phone: Start: 05-04-2017 End: 05-04-2017 Most recent diastolic blood pressure 80-89 mm hg Alireza Gutierrez MD Work Phone: Start: 05-04-2017 End: 05-04-2017 Most recent systolic blood pres>/equal 140 mm hg Alireza Gutierrez MD Work Phone: Start: 04-13-2017 End: 04-13-2017 Body mass index documented Alireza Gutierrez MD Work Phone: Start: 04-13-2017 End: 04-13-2017 Most recent diastolic blood pressure 80-89 mm hg Alireza Gutierrez MD Work Phone: Start: 04-13-2017 End: 04-13-2017 Most recent systolic blood press 130-139mm hg Alireza Gutierrez MD Work Phone: Start: 10-16-2016 End: 10-16-2016 Depression screen annual Alireza Jones Work Phone: Start: 10-16-2016 End: 10-16-2016 Falls risk assessment documented Alireza Gutierrez MD Work Phone: Start: 04-17-2016 End: 04-17-2016 Pt falls assess docd w/o fall/injury past year Alireza Gutierrez MD Work Phone: Start: 2016 End: 02-18-2016 Chest x-ray Carlito Jackson TUG CAPTAIN-C Work Phone: Start: 02-24-2014 End: 02-24-2014 Removal sutures under anesthesia same surgeon Alireza Gutierrez MD Work Phone: Start: 2014 End: 2014 Exc b9 lesion mrgn xcp sk tg s/n/h/f/g 0.5 cm/< Alireza Gutierrez MD Work Phone: Start: 09-06-2012 End: 09-11-2012 Mri spinal canal lumbar w/o contrast material Alireza Gutierrez MD Work Phone: Start: 09-03-2012 End: 09-06-2012 Radex spine lumbosacral 2/3 views Alireza Gutierrez MD Work Phone: Start: 09-03-2012 End: 09-24-2012 Duplex scan extracranial art compl bi study Stephanie Gagnon PA-C Work Phone: Start: 08-26-2012 End: 08-30-2012 Mri brain brain stem w/o contrast material Stephanie Mendezer PA-C Work Phone: Comment on above: Brain CT showed evid ence of a lacunar infarct in the basal ganglia on the left side. Start: 08-22-2012 End: 08-23-2012 Ct head/brain w/o contrast material Stephanie Gagnon PA-C Work Phone: Comment on above: Hold patient and rafi l results to Stephanie Gagnon Start: 08-22-2012 End: 08-22-2012 Radex wrist 2 views Stephanie Mendezer PA- C Work Phone: Comment on above: Hold patient and rafi l results to Stephanie Gagnon Plan of Treatment Date Care Activity Detail Author Start: 01-06-2025 Patient encounter procedure Medical; RTN OFFICE VISIT - 6 mo rtn [employer] [employer] Start: 06-Jan-2025 10:00-04:00 MD Alireza Gutierrez Appointment Request [facility] Start: 12-30-2024 Nursing evaluation of patient and report Medical; Nurse visit - fasting labs-- [facility] Start: 30-Dec-2024 10:00-04:00 NURSE, FLOAT Appointment Request [facility] Start: 05-28-2024 Patient encounter procedure Medical; PHYSICAL - AWV [facility] [employer] Start: 28-May-2024 10:50-05:00 MD Alireza Gutierrez Appointment Request [facility] Start: 05-14-2024 Lipid panel LIPID PANEL (99116) Start: 14-May-2024 Request [facility]; [facility] Start: 05-14-2024 Assay of thyroid stimulating hormone tsh [employer] [facility] [employer] Start: 05-14-2024 Comprehensive metabolic panel [employer] [facility] Start: 05-14-2024 Nursing evaluation of patient and report [employer] Start: 12-05-2023 Radex hip unilateral with pelvis 2-3 views Hip/pelvis x-ray, left (59398) Start: 05-Dec-2023 Intent [facility]; [facility] Start: 11-14-2023 Assay of thyroid stimulating hormone tsh TSH (THYROID STIMULATING HORMONE) (01356) Start: 14-Nov-2023 10:25-04:00 Request [employer]; [facility] Start: 11-14-2023 Blood count complete auto&auto difrntl wbc CBC, PLATELETS & AUT DIFF (F) ([id number]) Start: 14-Nov-2023 10:25-04:00 Request [employer]; [facility] Start: 11-14-2023 Patient encounter procedure [employer] Start: 05-15-2023 Patient encounter procedure Medical; PHYSICAL - AWV [facility] [employer] Start: 15-May-2023 10:10 MD Alireza Gutierrez Appointment Request [facility] [employer] Start: 05-08-2023 Comprehensive metabolic panel CMP w/ GFR* (58672) Start: 08-May-2023 Request [employer]; [facility] Start: 05-08-2023 Lipid panel LIPID PANEL (81102) Start: 08-May-2023 Request [employer] [facility]; [facility] Start: 05-08-2023 Nursing evaluation of patient and report Medical; Nurse visit - LILIA LUIS [facility] Start: 08-May-2023 10:00 NURSE, FLOAT Appointment Request [facility] Start: 08-05-2021 Anesthesia closed proc lower leg ankle & foot ANESTH LOWER LEG PROCEDURE [facility] Work Phone: Start: 08-05-2021 Application uniplane external fixation system APPLY BONE FIXATION DEVICE [facility] Work Phone: Start: 08-05-2021 Closed tx bimalleolar ankle fracture w/manj TREATMENT OF ANKLE FRACTURE [facility] Work Phone: MR Cervical spine [facility] MR Lumbar spine [facility] Patient referral [facility] Work Phone: Immunizations Immunization Date Immunization Notes Care Provider Avinash yeung 05-16-2024 influenza, high dose seasonal, preservative-free Alireza Gutierrez MD Work Phone: [facility]; [facility] 05-04-2023 RSV, recombinant, pr otein subunit RSVpreF, 0.5 mL Alireza Gutierrez MD Work Phone: [facility]; [facility] 04-20-2023 COVID-Moderna (100 MCG/0.5 ML) Alireza Gutierrez MD Work Phone: [facility]; [facility] Comment on above: Félix 03-17-2023 zoster vaccine recombinant Alireza Gutierrez MD Work Phone: [facility]; [facility] 03-02-2023 tetanus toxoid, redu angelika diphtheria toxoid, and acellular pertussis vaccine, adsorbed Alireza Gutierrez MD Work Phone: [facility]; [facility] 02-10-2023 influenza, injectabl e, quadrivalent, preservative free Alireza Gutierrez MD Work Phone: [employer] [facility]; [facility] 01-11-2023 zoster vaccine recombinant Alireza Gutierrez MD Work Phone: [employer]; [employer] 04-27-2021 COVID-Moderna (100 MCG/0.5 ML) Alireza Gutierrez MD Work Phone: [facility]; [facility] 04-01-2021 influenza, injectabl e, quadrivalent, contains preservative Alireza Gutierrez MD Work Phone: [facility]; [employer] Comment on above: Site: Right ArmVIS G iven: * Influenza - Inactivated (12/12/18) 07-08-2020 COVID-Moderna (100 MCG/0.5 ML) Alireza Gutierrez MD Work Phone: [facility]; [employer] 06-10-2020 COVID-Moderna (100 MCG/0.5 ML) Alireza Gutierrez MD Work Phone: [facility]; [facility] 04-20-2020 pneumococcal polysaccharide vaccine, 23 valent Alireza Gutierrez MD Work Phone: [facility]; [employer]. Comment on above: Site: Left DeltoidVI S Given: * Pneumococcal Polysaccharide (PPSV23) (08/21/14) 03-06-2020 influenza, injectabl e, quadrivalent, contains preservative Alireza Gutierrez MD Work Phone: [facility]; [facility] Comment on above: pharmacy 04-16-2019 influenza virus vacc ine, unspecified formulation Alireza Gutierrez MD Work Phone: [employer] [facility]; [employer] 04-16-2019 influenza, injectabl e, quadrivalent, contains preservative Alireza Gutierrez MD Work Phone: [employer]; [employer] Comment on above: Site: Left ArmVIS Gi elijah: * Influenza - Inactivated (12/04/14) 10-05-2017 diphtheria, tetanus toxoids and acellular pertussis vaccine, unspecified formulation Alireza Gutierrez MD Work Phone: [facility] [facility]; [facility] 04-13-2017 influenza, injectabl e, quadrivalent, contains preservative Alireza Gutierrez MD Work Phone: [employer] [facility]; [facility] Comment on above: Site: Left DeltoidVI S Given: * Influenza - Inactivated (12/04/14) 04-17-2016 pneumococcal conjuga te vaccine, 13 valent Alireza Gutierrez MD Work Phone: [facility]; [facility] Work Phone: Comment on above: Site: Deltoid (Left) VIS Given: * Pneumococcal Conjugate (PCV13) (03/04/15) 01-14-2016 unknown vaccine or i mmune globulin Alireza Gutierrez MD Work Phone: [facility]; [facility] 01-14-2016 influenza, injectabl e, quadrivalent, contains preservative Alireza Gutierrez MD Work Phone: [facility]; [facility] Comment on above: Site: Deltoid (Left) VIS Given: * Influenza - Inactivated (12/04/14) 04-15-2015 influenza, seasonal, injectable Alireza Gutierrez MD Work Phone: [facility]; [facility] Comment on above: Site: Deltoid (Left) VIS Given: * Inactivated Influenza (12/04/2014) 04-15-2015 IMMUNIZATION ADMIN ([id number]) Alireza Gutierrez MD Work Phone: [facility]; [facility] 2014 influenza, seasonal, injectable Alireza Gutierrez MD Work Phone: [facility]; [facility] Comment on above: Site: Deltoid (Left) VIS Given: * Influenza, Inactivated () 2014 ADMINISTRATION OF INFLUENZA VIRUS VACCINE (G0008) Alireza Gutierrez MD Work Phone: [facility] [place]. 07-01-2013 ADMINISTRATION OF INFLUENZA VIRUS VACCINE (G0008) Alireza Gutierrez MD Work Phone: [facility]; [employer]. 07-01-2013 influenza, seasonal, injectable Alireza Gutierrez MD Work Phone: [facility]; [employer] Comment on above: Site: Deltoid (Left) VIS Given: * Inactivated Influenza Vaccine (12/08/08) * Inactivated Influenza Vaccine (11/22/10) * Influenza vaccine [id number], inactivated (10/30/2011) * Influenza, Inactivated () * VIS Given (Unspecified) 03-05-2012 influenza, seasonal, injectable Alireza Gutierrez MD Work Phone: [facility]; [employer] Comment on above: Site: Deltoid (Left) VIS Given: * Inactivated Influenza Vaccine (12/08/08) * Inactivated Influenza Vaccine (11/22/10) * Influenza vaccine [id number], inactivated (10/30/2011) * VIS Given (Unspecified) 03-05-2012 ADMINISTRATION OF INFLUENZA VIRUS VACCINE (G0008) Alireza Gutierrez MD Work Phone: [facility]; [employer]. 03-07-2011 influenza, seasonal, injectable Alireza Gutierrez MD Work Phone: [facility]; [place] [employer]. Comment on above: Site: Deltoid (Left) VIS Given: * Inactivated Influenza Vaccine (12/08/08) * Inactivated Influenza Vaccine (11/22/10) * Inactivated Influenza Vaccine (11/22/10) * Inactivated Influenza Vaccine (11/22/10) * Inactivated Influenza Vaccine (11/22/10) * Inactivated Influenza Vaccine (11/22/10) * Inactivated Influenza Vaccine (11/22/10) * VIS Given (Unspecified) * VIS Given (Unspecified) Payers Date Payer Category Payer Self-pay [id number] 2024 Unknown [id number] 2010 Medicare [id number] 2010 Medicare [id number] 1945 Unknown [id number] [id number] Unknown Unknown [id number] 2.16.8 [id number] Unknown [id number] 2.16.8 [id number] Unknown [id number] 2.16.8 [id number] Unknown [id number] 2.16.8 [id number] Unknown [id number] 2.16.8 [id number] Unknown [id number] 2.16.8 [id number] Unknown [id number] [id number] [id number] Social History Date Type Detail Facility Start: 11-29-2016 End: 10-03-2024 Tobacco smoking status TXIS Former smoker [facility] End: 11-29-1974 History of tobacco use Current smoker [facility] Work Phone: Sex Assigned At Not on file [facility] Work Phone: Start: 08-04-2021 End: 04-16-2023 Tobacco smoking status [facility] Unknown if ever smoked [facility] Start: 06-05-2018 [facility] Start: 1945 Sex Assigned At Male [facility] Alcohol Use [facility] Current Work/Study Status: Current Work/Study Status: ; Retired. [facility] Tobacco Use: Tobacco Use: ; F ormer smoker. [facility] Retired [facility] [employer] [facility] Work Phone: Medical Equipment Procedure Code Equipment Code Equipment Origin al Text Equipment Identifier Dates ORIF, ankle 1.4MM kwire FDA Start: 08-18-2021 ORIF, ankle Low Pro [place] Screw FDA Start : 08-18-2021 ORIF, ankle Temp Fixation Pin FDA Start: 08-18-2021 ORIF, ankle cancellous screw FDA Start: 08-18-2021 ORIF, ankle cancellous screw full FDA St art: 08-18-2021 ORIF, ankle headed screw FDA Start: 08-18-2021 ORIF, ankle headed screw FDA Start: 08-18-2021 ORIF, ankle locking screw FDA Start: 08-18-2021 ORIF, ankle washer FDA Start: 08-18-2021 ORIF, ankle 1.4MM kwire FDA Start: 08-18-2021 ORIF, ankle 3.5MM LO PRO COR T SCREW FDA Start: 08-18-2021 ORIF, ankle 3.5MM locking screw FDA Star t: 08-18-2021 ORIF, ankle 3.5MM locking screw FDA Star t: 08-18-2021 ORIF, ankle [place] Synchfix FDA Start: 08-18-2021 ORIF, ankle LO PRO CORBIN SCREW FDA Start: 08-18-2021 ORIF, ankle Lateral fibula P late lt FDA Start: 08-18-2021 ORIF, ankle Low Pro [place]bin Screw FDA Start : 08-18-2021 ORIF, ankle 1.4MM kwire FDA Start: 08-18-2021 ORIF, ankle Low Pro [place]bin Screw FDA Start : 08-18-2021 ORIF, ankle Temp Fixation Pin FDA Start: 08-18-2021 ORIF, ankle cancellous screw FDA Start: 08-18-2021 ORIF, ankle cancellous screw full FDA St art: 08-18-2021 ORIF, ankle headed screw FDA Start: 08-18-2021 ORIF, ankle headed screw FDA Start: 08-18-2021 ORIF, ankle locking screw FDA Start: 08-18-2021 ORIF, ankle washer FDA Start: 08-18-2021 ORIF, ankle 1.4MM kwire FDA Start: 08-18-2021 ORIF, ankle 3.5MM LO PRO COR T SCREW FDA Start: 08-18-2021 ORIF, ankle 3.5MM locking screw FDA Star t: 08-18-2021 ORIF, ankle 3.5MM locking screw FDA Star t: 08-18-2021 ORIF, ankle [place] Synchfix FDA Start: 08-18-2021 ORIF, ankle LO PRO CORBIN SCREW FDA Start: 08-18-2021 ORIF, ankle Lateral fibula P late lt FDA Start: 08-18-2021 ORIF, ankle Low Pro Corbin Screw FDA Start : 08-18-2021 ORIF, ankle 1.4MM kwire FDA Start: 08-18-2021 ORIF, ankle Low Pro Corbin Screw FDA Start : 08-18-2021 ORIF, ankle Temp Fixation Pin FDA Start: 08-18-2021 ORIF, ankle cancellous screw FDA Start: 08-18-2021 ORIF, ankle cancellous screw full FDA St art: 08-18-2021 ORIF, ankle headed screw FDA Start: 08-18-2021 ORIF, ankle headed screw FDA Start: 08-18-2021 ORIF, ankle locking screw FDA Start: 08-18-2021 ORIF, ankle washer FDA Start: 08-18-2021 ORIF, ankle 1.4MM kwire FDA Start: 08-18-2021 ORIF, ankle 3.5MM LO PRO COR T SCREW FDA Start: 08-18-2021 ORIF, ankle 3.5MM locking screw FDA Star t: 08-18-2021 ORIF, ankle 3.5MM locking screw FDA Star t: 08-18-2021 ORIF, ankle [place] Synchfix FDA Start: 08-18-2021 ORIF, ankle LO PRO CORBIN SCREW FDA Start: 08-18-2021 ORIF, ankle Lateral fibula P late lt FDA Start: 08-18-2021 ORIF, ankle Low Pro Corbin Screw FDA Start : 08-18-2021 ORIF, ankle 1.4MM kwire FDA Start: 08-18-2021 ORIF, ankle Low Pro Corbin Screw FDA Start : 08-18-2021 ORIF, ankle Temp Fixation Pin FDA Start: 08-18-2021 ORIF, ankle cancellous screw FDA Start: 08-18-2021 ORIF, ankle cancellous screw full FDA St art: 08-18-2021 ORIF, ankle headed screw FDA Start: 08-18-2021 ORIF, ankle headed screw FDA Start: 08-18-2021 ORIF, ankle locking screw FDA Start: 08-18-2021 ORIF, ankle washer FDA Start: 08-18-2021 ORIF, ankle 1.4MM kwire FDA Start: 08-18-2021 ORIF, ankle 3.5MM LO PRO COR T SCREW FDA Start: 08-18-2021 ORIF, ankle 3.5MM locking screw FDA Star t: 08-18-2021 ORIF, ankle 3.5MM locking screw FDA Star t: 08-18-2021 ORIF, ankle [place] Syn[employer]fix FDA Start: 08-18-2021 ORIF, ankle LO PRO CORBIN SCREW FDA Start: 08-18-2021 ORIF, ankle Lateral fibula P late lt FDA Start: 08-18-2021 ORIF, ankle Low Pro Corbin Screw FDA Start : 08-18-2021 ORIF, ankle 1.4MM kwire FDA Start: 08-18-2021 ORIF, ankle Low Pro Corbin Screw FDA Start : 08-18-2021 ORIF, ankle Temp Fixation Pin FDA Start: 08-18-2021 ORIF, ankle cancellous screw FDA Start: 08-18-2021 ORIF, ankle cancellous screw full FDA St art: 08-18-2021 ORIF, ankle headed screw FDA Start: 08-18-2021 ORIF, ankle headed screw FDA Start: 08-18-2021 ORIF, ankle locking screw FDA Start: 08-18-2021 ORIF, ankle washer FDA Start: 08-18-2021 ORIF, ankle 1.4MM kwire FDA Start: 08-18-2021 ORIF, ankle 3.5MM LO PRO COR T SCREW FDA Start: 08-18-2021 ORIF, ankle 3.5MM locking screw FDA Star t: 08-18-2021 ORIF, ankle 3.5MM locking screw FDA Star t: 08-18-2021 ORIF, ankle [place] Syn[employer] FDA Start: 08-18-2021 ORIF, ankle LO PRO CORBIN SCREW FDA Start: 08-18-2021 ORIF, ankle Lateral fibula P late lt FDA Start: 08-18-2021 ORIF, ankle Low Pro Corbin Screw FDA Start : 08-18-2021 ([id number]) Orthopaedic bone pin, non-bioabsorbable ()[id number] FDA Start: 08-05-2021 ([id number]) Orthopaedic bone pin, non-bioabsorbable ()[id number] FDA Start: 08-05-2021 Mental Status Date Assessment Result Facility 08-18-2021 Cognitive function Voice/Name [facility] Work Phone: 08-05-2021 Cognitive function Voice/Name [facility] Work Phone: Evaluation note Note Date & Type Note Facility Evaluation note Diagnosis Onset Date Fracture of ankle, bimalleolar, left, closed acute [facility] Work Phone: Evaluation note Note Date & Type Note Facility Evaluation note No assessment information availa [facility] Work Phone: Evaluation note Note Date & Type Note Facility Evaluation note Diagnosis Onset Date Lumbar spondylosis acute Spinal stenosis of cervicothoracic region acute [facility] Work Phone: Hospital Discharge instructions Note Date & Type Note Facility Hospital Discharge instructions Additional Instructions Follow preprinted instructions from your surgeons office. [facility] Work Phone: Reason for referral (narrative) Note Date & Type Note Facility Reason for referral (narrative) No reason for referral information available [facility] Work Phone: Summary Purpose Family History No Family History Records Found Cancer Status:Active Comments:Father. Cerebrovascular Accident Status:Active Comment [...] Comments:Family Members In General. Mother. Advance Directives No Advanced Directives Records Found Advance Directive Response Recorded Date/ Time Living Will Yes August 04, 2021 10:48am Power of Panel Laminator Yes August 04 10:48am Advance Directive Response Recorded Date/ Time Name of Medical Power of Panel Laminator SPOUSE August 04, 2021 10:48am Living Will Yes August 12, 2021 11:00am Power of Panel Laminator Yes August 12 11:00am Advance Directive Response Recorded Date/ Time Living Will Yes August 12, 2021 10:00am Power of Panel Laminator Yes August 12 10:00am Living Will - Effective on . Expiration [...] available upon request. Effective:30-May-2022 Discharge Instructions * Rigoberto Prieto, DO - 11/29/2016 Until you follow up with Dr. Gutierrez start adding some salt to your diet. Both your sodium and your potassium were low today Hypokalemia: Care Instructions Your Care Instructions Hypokalemia (say ly-rc-eal-JEROD-yves-uh) is a low level of potassium. The [...] Log into your personal health record on [email or web address] and enter G358 in the Education box to learn more about Hypokalemia: Care Instructions. Current as of: November 25, 2015 Content Version: 11.2 0742-9681 [employer]. Care instructions adapted under license by your healthcare professional. If you have questions about a medical condition or this instruction, always ask your healthcare professional. [employer] disclaims any warranty or liability for your use of this information. Hyponatremia: Care Instructions Your Care Instructions Hyponatremia (say xn-ro-nxy-TREE-yves-uh) means that you don't have enough sodium [...] Log into your personal health record on [email or web address] and enter U075 in the Education box to learn more about Hyponatremia: Care Instructions. Current as of: February 11, 2016 Content Version: 11.2 5300-1070 [employer]. Care instructions adapted under license by your healthcare professional. If you have questions about a medical condition or this instruction, always ask your healthcare professional. [employer] disclaims any warranty or liability for your [...] Log into your personal health record on [email or web address] and enter H758 in the Education box to learn more about Learning About Alcohol Misuse. Current as of: May 02, 2016 Content Version: 11.2 4153-3729 [employer]. Care instructions adapted under license by your healthcare professional. If you have questions about a medical condition or this instruction, always ask your healthcare professional. [employer] disclaims any warranty or liability for your use of this information. in this encounter Assessments Diagnosis Hyponatremia - Primary Hyposmolality and/or hyponatremia Hypokalemia Hypopotassemia Alcohol intoxication, with u nspecified complication (HCC) Chief Complaint and Reason for Visit Chief Complaint LT ANKLE CLSD RED BI MALLEOLAR FX PAPO EXTERNAL FIXA Reason for Visit Fracture of ankle, b imalleolar, left, closed Chief Complaint LT ANKLE CLSD RED BI MALLEOLAR FX PAPO EXTERNAL FIXA LT ANKLE REMOVAL EXTERNAL FIXATOR, ORIF Reason for Visit Fracture of ankle, b imalleolar, left, closed Chief Complaint HEMATURIA Chief Complaint LUMBAR SPINE Reason for Visit Lumbar spondylosis Spinal stenosis of cervicothoracic region Chief Complaint LUMBAR SPINE CERVICAL/LUMBAR PAIN Reason for Visit Lumbar spondylosis Spinal stenosis of cervicothoracic region Chief Complaint Admit Date LEG WEAKNESS October 03, 2024 10:52 am Additional Source Comments (unrecognized sect ion and content) No Status Records FoundNo Status Records FoundNo Status Records FoundNo Status Records FoundNo Status Records Found INFORMATION SOURCE (unrecogn ized section and content) DATE CREATED AUTHOR 10/24/2017 [facility] DATE CREATED AUTHOR AUTHOR'S ORGANIZ ATION 12/08/2023 [facility] DATE CREATED AUTHOR AUTHOR'S ORGANIZ ATION 05/17/2024 [facility] DATE CREATED AUTHOR AUTHOR'S ORGANIZ ATION 05/18/2024 [facility] DATE CREATED AUTHOR AUTHOR'S ORGANIZ ATION 10/15/2024 [facility] Reason for Visit (unrecogniz ed section and content) Reason Comments Extremity Weakness Goals (unrecognized section and content) Goals may be documented in a n alternate sectionGoals may be documented in an alternate sectionGoals may be documented in an alternate sectionGoals may be documented in an alternate sectionGoals may be documented in an alternate sectionGoals may be documented in an alternate sectionGoals may be documented in an alternate section Care Teams (unrecognized sec tion and content) Team Status: Active Member Role Status Dates Dr. Alireza Gutierrez MD Family Provider Active Dr. Alireza Gutierrez MD Primary Care Provider Active Team Status: Inactive Member Role Status Dates Dr. Alireza Gutierrez MD Primary Care Provider Active Dr. Prasad Pitt MD Attending Provider Active Team Status: Inactive Member Role Status Dates Dr. Alireza Gutierrez MD Primary Care Provider, Referring Provider Active Dr. Gustavo Miranda DO Attending Provider Active Team Status: Inactive Member Role Status Dates Dr. Alireza Gutierrez MD Primary Care Provider Active Dr. Prasad Pitt MD Attending Provider, Referr ing Provider Active Team Status: Inactive Member Role Status Dates Dr. Alireza Gutierrez MD Primary Care Provider Active Dr. Gustavo Miranda DO Attending Provider, Referring P vlad Active Team Status: Inactive Member Role Status Dates Dr. Alireza Gutierrez MD Primary Care Provider Active Start: October 03, 2024 End: October 03, 2024 Dr. Alireza Gutierrez MD Referring Provider Active S tart: October 03, 2024 End: October 03, 2024 Dr. Albert Burt MD Attending Provider Active Start: October 03, 2024 End: October 03, 2024 FOR RECORDS PERTAINING TO PATIENTS WHO ARE [...] BE BASED ON THE PRIMARY CLINICAL RECORDS. [facility] [employer] [facility]. provides no warranty or guarantee of the accuracy or completeness of information in this document.
--- NOTE | 2024-10-21 09:09 | NEURO ---
NCS and/or EMG Patient Report Ordering Doctor: Albert Burt DATE OF SERVICE: 10/21/24 Clinical Summary: 79 year old male patient with symptoms of weakness in the thighs and numbness in the feet. Nerve Conduction Studies Summary: Nerve conduction studies were performed in the bilateral lower extremities. The left sural SNAP was absent. The left peroneal-EDB CMAP amplitude was absent. The right peroneal-EDB CMAP amplitude was reduced diffusely. The right peroneal motor conduction velocity was reduced distally. The right peroneal and bilateral tibial F-wave onset latency was prolonged. Needle Examination Summary: Needle examination of select muscles of the bilateral lower extremities demonstrated an increased amplitude, increased duration, and polyphasia in the motor unit potentials of the left peroneus longus and tensor fascia luis muscles. Impression: This is an abnormal study. There is electrodiagnostic evidence of the following - 1) Predominantly axonal, sensorimotor, peripheral polyneuropathy 2) Chronic, mild, left L5 radiculopathy Multi Select Codes Neurology Neurology Interp Codes: 68122-28 Musc test done w/n test comp (interp) (2) and 21085-49 Nrv cndj test 9-10 studies (interp)
== END | disposition home or self-care (01) ==
PROVIDERS: PCP Family Medicine; Referring Provider Psychiatry & Neurology Neurology; Visit Provider Psychiatry & Neurology Neurology
DX: R29.898 Other symptoms and signs involving the musculoskeletal system (principal)
CPT/HCPCS: 95886; 95911

== ENCOUNTER 2024-11-20 10:00 | Outpatient (CLI) | payer MEDICARE, OTHER, SELFPAY ==
--- NOTE | 2024-11-21 09:08 | EKG12_ITS ---
Test Reason : PRE OP
[2024-11-21 09:55] LABS: Hematocrit 20.9 % (40-54); Hemoglobin 7.6 g/dL (13.0-16.5); Immature Granulocytes Count 0.070 X10^3/uL (0.0-0.0); Mean Corp Hgb Conc 36.4 g/dL (32-36); Mean Corpuscular Volume 92.1 fL (80-94); Mean Platelet Vol. 9.0 fl (6.2-12.0); NRBC Flagged by Analyzer 0 % (0-5); Platelet Count 155 K/mm3 (150-450); RBC Distribution Width CV 12.2 % (11.6-14.6); RBC Distribution Width SD 41.2 fl (35.1-43.9); Red Blood Count 2.27 M/mm3 (4.6-6.2); White Blood Count 5.6 K/mm3 (4.4-11.0)
[2024-11-21 10:02] LABS: Prothrombin Time (Protime)PT. 13.5 SECONDS (11.7-14.9)
[2024-11-21 10:03] LABS: Partial Thromboplast Time 28.5 Seconds (24.1-36.2)
[2024-11-21 10:48] LABS: AST(SGOT) 18 U/L (<=37); Alanine Aminotransfer ALT/SGPT 13 U/L (<=46); Albumin, Serum 3.2 g/dL (3.4-4.8); Alkaline Phosphatase 84 U/L (40-129); Anion Gap 8 (5-15); BUN 11 mg/dL (4-19); BUN/Creat Ratio 8.7 RATIO (10-20); Bilirubin, Direct 0.21 mg/dL (0.00-0.30); Calcium,Total 8.5 mg/dL (7.6-11.0); Carbon Dioxide 22.3 mmol/L (21.0-32.0); Chloride 92 mmol/L (98-108); Globulin 2.2 g/dL (2.2-4.2); Glucose 115 mg/dL (70-99); Potassium 5.1 mmol/L (3.3-5.1)
--- NOTE | 2024-11-21 11:35 | PAT.ANESEVAL ---
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 When Was Last Pacemaker Check QUESTION #4 FULL TEXT: You/Your Family Experience fever (hyperthermia) with Anesthesia Last Oral Intake Last Oral intake: Last Oral Intake NPO since Meds taken in AM with sips of water? Meds patient instructed to take am of surgery PONV PONV - frontload driver: PONV - frontload driver Female Yes 11/20/24 10:09 HX of Motion Sickness No 11/20/24 10:09 HX of N/V After Surgery No 11/20/24 10:09 Non-Smoker Yes 11/20/24 10:09 Duration of Surgery greater Yes 11/20/24 10:09 than 60 minutes Number of Risk Factors 3 11/20/24 10:09 PONV Score Moderate Risk 11/20/24 10:09 Height & Weight Height & Weight: Anesthesia: Height & Weight Height 5 ft 10 in 10/03/24 11:02 Respiratory Assessment Respiratory Assessment - frontload driver: Respiratory Tract Infection Hx - frontload driver Hx Respiratory Tract Infection No 11/20/24 10:09 STOP Sleep Apnea STOP Sleep Apnea - frontload driver: STOP Sleep Apnea - frontload driver Hx Hypertension Yes: CONTROLLED WITH MEDS 11/20/24 10:09 Hx Sleep Apnea No 11/20/24 10:09 CPAP BIPAP Do you snore loudly (louder No 11/20/24 10:09 than talking or can be heard Do you often feel tired/ No 11/20/24 10:09 fatigued/ sleepy during daytime? Has anyone observed you stop No 11/20/24 10:09 breathing during sleep? STOP Results Negative 11/20/24 10:09 QUESTION #5 FULL TEXT : Do you snore loudly (louder than talking or can be heard through closed doors)? 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 Specify any problems Hx of Preganancy in last 3 N/A 11/20/24 10:09 Months Nurse Filling Out Transfusion [id number] 11/20/24 10:09 & Questions: Date: 11/20/24 11/20/24 10:09 Time: 10:14 11/20/24 10:09 Patient unable to answer at this time (ie. confused, unrespo /Reproduction History /Reproductive History - frontload driver: /Reproductive Hx- frontload driver Hx Now Gestational Age (in weeks): EDC: Hx Hx Para Hx Section SAB No 08/12/21 11:00 PFSH Medical History Walker as ambulation aid Hx of reduction of closed dislocation Loss of hearing Wears glasses Alcohol use Cancer Uses wheelchair Prostate disease Bladder disease Blood clot in vein Restless legs Easy bruising Back pain Injury of back Migraine headache Injury of head and neck TIA (transient ischemic attack) Loss of consciousness Syncope Former smoker History of edema History of stress test Hypertension Home Medications ?Medication ?Instructions ?Recorded ?Last Taken ?Type aspirin 81 mg tablet,delayed 81 mg PO QHS 06/05/18 11/18/24 History release atorvastatin 20 mg tablet 20 mg PO QHS 08/04/21 Unknown History tamsulosin 0.4 mg capsule (Flomax) 0.4 mg PO QHS 08/04/21 Unknown History fluticasone propionate 50 1 spray intranasal QDAY PRN nasal 03/11/24 Unknown History mcg/actuation nasal congestion spray,suspension (Flonase Allergy Relief) potassium chloride 20 mEq 40 meq PO DAILY 03/11/24 Unknown History tablet,extended release(part/cryst) (Klor-Con M) amlodipine 10 mg tablet 10 mg PO QHS 10/03/24 Unknown History cod liver oil 1 cap PO BID 10/03/24 Unknown History finasteride 5 mg tablet 5 mg PO QDAY 10/03/24 Unknown History ibuprofen 200 mg tablet 200 mg PO Q6H PRN fever or pain 10/03/24 Unknown History ketoconazole 2 % shampoo 1 applic topical DAILY PRN dry skin 10/03/24 Unknown History metoprolol tartrate 100 mg tablet 100 mg PO .COMPLEX 10/03/24 Unknown History otlmvxoznewl-cjtzidvu-ofsigx 1 tab PO DAILY 11/20/24 Unknown History tablet (Milltrium Senior tablet) Allergy/AdvReac Type Severity Reaction Status Date / Time No Known Allergies Allergy Verified 11/20/24 10:01 Surgical History Hx of cystoscopy Hx of colonoscopy Social History household members: spouse current occupational status: retired Smoking Status: Former smoker alcohol intake: current caffeine: Yes Audit: Pertinent Findings Pertinent Findings Additional pertinent findings: Patient had labs done on November 21, 2024. Hemoglobin is decreased at 7.6. Sodium is decreased at 122. Recommendation Anesthesia Recommendation Anesthesia recommendation: F/U recommended (Patient's hemoglobin is very low at 7.6. His sodium is critically low at 122. Patient needs to be medically tuned up. He may need a transfusion prior to surgery. He may also need a renal consult to evaluate his low sodium.)
== END 2024-11-20 19:00 | disposition home or self-care (01) ==
LOC: SDC 03-04 10:23
PROVIDERS: Student in an Organized Health Care Education/Training Program; PCP Family Medicine; Referring Provider Urology; Visit Provider Urology
DX: Z01.818 Encounter for other preprocedural examination (principal); I10 Essential (primary) hypertension; Z87.891 Personal history of nicotine dependence; Z79.82 Long term (current) use of aspirin; Z79.899 Other long term (current) drug therapy; D64.9 Anemia, unspecified; E87.1 Hypo-osmolality and hyponatremia; Z53.09 Procedure and treatment not carried out because of other contraindication; Z86.718 Personal history of other venous thrombosis and embolism; I25.2 Old myocardial infarction
CPT/HCPCS: 36415; 80048; 80076; 85025; 85610; 85730; 93005

== ENCOUNTER 2024-12-10 11:43 | Emergency (ER) | payer MEDICARE, OTHER, SELFPAY ==
[2024-12-10 11:45] VITALS: BP 138/74; PULSE 84; RESP 19; TEMP 36.8; O2SAT 97
[2024-12-10 11:47] VITALS: BP 138/74; PULSE 84; RESP 19; TEMP 36.8; O2SAT 97
--- NOTE | 2024-12-10 12:08 | CT_ITS ---
PROCEDURE: ABDOMEN/PELVIS WITHOUT CONT 12/10/2024 REASON FOR EXAM: URINARY RETENTION TECHNIQUE: ABDOMEN/PELVIS WITHOUT CONT Noncontrast technique limits evaluation of the abdominal and pelvic viscera. Coronal and Sagittal reconstruction series were provided. One or more dose reduction techniques were used (e.g., Automated exposure control, adjustment of the mA and/or kV according to patient size, use of iterative reconstruction technique). RADIATION DOSE SUMMARY: CTDlvol: 10.42 mGy DLP: 541.52 mGycm COMPARISON: Prior study dated May 11, 2022. FINDINGS: Lung bases: Minimal linear scarring at the left lung base. Small pericardial effusion. There is calcification of the mitral valve annulus. Coronary artery calcification. Liver: Stable small hepatic cysts. Gallbladder: Gallbladder is unremarkable. Spleen: Normal size. Pancreas: Normal size. No surrounding inflammation. Adrenals: Stable small adenoma in the right adrenal gland. This measures 1.6 cm. Kidneys: Once again, there is a mild degree of right hydronephrosis. 2 tiny calculi are seen in the right ureteropelvic junction. Bladder: A Baldwin catheter is seen. There is diffuse irregular bladder wall thickening of the bladder. A neoplastic process should be ruled out. The prostate is slightly enlarged. Central calcifications are seen. Bowel: Colonic diverticulosis without diverticulitis. Appendix: The appendix is not identified. There is no inflammatory process identified in the right lower quadrant to suggest appendicitis. Lymph nodes: Unremarkable. Vasculature: Moderate diffuse atherosclerotic calcifications of the abdominal aorta and the major visceral branches. Peritoneum / Retroperitoneum: Unremarkable Bones: Degenerative changes of the spine. Loss of height of the superior endplate of the L4 and L2 vertebrae. CT/Abdomen/Pelvis without Cont IMPRESSION: Diffuse bladder wall thickening. A neoplastic process should be ruled out. Mild degree of right hydronephrosis. 2 tiny calculi are seen in the right lisa l pelvis. Reading Location: [facility]
--- NOTE | 2024-12-10 12:19 | EDS_ITS ---
HPI History of Present Illness Chief Complaint: Complaint Narrative Narrative: Chief complaint and HPI: Urinary retention. 79-year-old male with past medical history of BPH history of prostate cancer status post radiation 10 years ago, and hematuria who follows with urology Dr. Pitt presents for evaluation of urinary retention. History taken by patient as well as medical record that patient has from outlying facility. Patient states he was scheduled to have surgery with Dr. Pitt for BPH and hematuria however while visiting in [facility] he ended up with emergent surgery in October for hematuria. He had a cystoscopy with partial prostate removal as well as stent placed in the ureter. Patient states he had a follow-up with the surgeon yesterday Dr. Valera in which his Baldwin catheter was removed. Patient states he has been unable to urinate since Baldwin catheter has been removed. Endorses some nausea. Suprapubic abdominal pain. Denies any fever, chills. Review of systems: See HPI Medications: As listed on the chart Allergies: As listed on the chart PFSH: Per chart Vital signs: As listed on the chart. Reviewed. Physical exam: Gen: A&O x3, NAD Head: Normocephalic, atraumatic Eyes: No sclera icterus, conjunctiva clear ENT: Moist mucous membranes Neck: Trachea midline, No JVD CV: RRR, no murmurs, no peripheral edema Resp: Lungs CTA BL, no w/r/c GI: Abd soft, distended suprapubically, tender to palpation suprapubically : No CVA tenderness. Circumcised penis. No penile tenderness. Blood at the penile meatus. No penile or testicular swelling. Normal lie and position of the testicles. No testicular tenderness, masses, or skin changes. Cremasteric reflexes intact and equal bilaterally. No rashes. No palpable hernias. Musc: Full ROM, no deformity Skin: Warm, dry Neuro: Alert, oriented, grossly intact, sensation intact Psych: Cooperative, appropriate mood and affect [facility] Medical History (Updated 12/10/24 @ 14:[address] Jadon Ward, ) Walker as ambulation aid Hx of reduction of closed dislocation Loss of hearing Wears glasses Alcohol use Cancer Uses wheelchair Prostate disease Bladder disease Blood clot in vein Restless legs Easy bruising Back pain Injury of back Migraine headache Injury of head and neck TIA (transient ischemic attack) Loss of consciousness Syncope Former smoker History of edema History of stress test Hypertension Home Medications ?Medication ?Instructions ?Recorded ?Last Taken ?Type aspirin 81 mg tablet,delayed 81 mg PO QHS 06/05/18 History release atorvastatin 20 mg tablet 20 mg PO QHS 08/04/21 Unknow n History tamsulosin 0.4 mg capsule (Flomax) 0.4 mg PO QHS 08/04 Unknown History fluticasone propionate 50 1 spray intranasal QDAY PRN nasal 03/11/24 Unknown History mcg/actuation nasal congestion spray,suspension (Flonase Allergy Relief) potassium chloride 20 mEq 40 meq PO DAILY 03/11/24 Unk nown History tablet,extended release(part/cryst) (Klor-Con M) amlodipine 10 mg tablet 10 mg PO QHS 10/03/24 Unknow n History cod liver oil 1 cap PO BID 10/03/24 Unknow n History finasteride 5 mg tablet 5 mg PO QDAY 10/03/24 Unknow n History ibuprofen 200 mg tablet 200 mg PO Q6H PRN fever or p ain 10/03/24 Unknown History ketoconazole 2 % shampoo 1 applic topical DAILY PRN d ry skin 10/03/24 Unknown History metoprolol tartrate 100 mg tablet 100 mg PO .COMPLEX 0 10/03/24 Unknown History pvuyvbfwibsd-swqcjwts-gfqzir 1 tab PO DAILY 11/20/24 U nknown History tablet (Milltrium Senior tablet) Allergy/AdvReac Type Severity Reaction Status Date / Time No Known Allergies Allergy Verified 12/10/24 11:48 Family History no significant family his Surgical History Hx of cystoscopy Hx of colonoscopy Social History household members: spouse current occupational status: retired Smoking Status: Former smoker alcohol intake: current caffeine: Yes EXAM Physical Exam Const Vital Signs: 12/10/24 11:45 12/10/24 11:47 12/10/24 13:43 Temperature 98.3 F 98.3 F Temperature Source Oral Oral Pulse Rate 84 84 78 Respiratory Rate 19 H 19 H Blood Pressure 138/74 H 138/74 H 147/78 H Blood Pressure Mean 95 95 101 Pulse Ox 97 97 99 Oxygen Delivery Method Room Air Room Air 12/10/24 14:25 Temperature 98.3 F Temperature Source Pulse Rate 80 Respiratory Rate 16 Blood Pressure 164/90 H Blood Pressure Mean 114 Pulse Ox 100 Oxygen Delivery Method MDM MDM MDM Narrative Medical decision making narrative: 79-year-old male with past medical history of BPH history of prostate cancer status post radiation 10 years ago, and hematuria who follows with urology Dr. Pitt presents for evaluation of urinary retention. History taken by patient as well as medical record that patient has from outlying facility. Patient states he was scheduled to have surgery with Dr. Pitt for BPH and hematuria however while visiting in [facility] he ended up with emergent surgery in October for hematuria. He had a cystoscopy with partial prostate removal as well as stent placed in the ureter. Patient states he had a follow-up with the surgeon yesterday Dr. Valera in which his Baldwin catheter was removed. Patient states he has been unable to urinate since Baldwin catheter has been removed. He has a distended bladder on physical exam with blood at the penile meatus. Differential diagnosis includes but is not limited to urinary retention, hematuria, nephrolithiasis, electrolyte abnormality, CHRISTINA. Patient had 1400 mL on bladder scan. Baldwin catheter will be placed with basic labs and CT abdomen pelvis without contrast. Patient has gross hematuria after catheter placement. Irrigation ordered. CBC without leukocytosis. Patient has anemia with a hemoglobin of 10.1 however on 11/21 his hemoglobin was 7.6. Platelet count unremarkable. BMP unremarkable without CHRISTINA. CT abdomen pelvis shows diffuse bladder wall thickening. A neoplastic process should be ruled out. Mild degree of right hydronephrosis. 2 tiny calculi are seen in the right renal pelvis. I do not see a stent present, patient states the stent was removed yesterday. On reevaluation, his urine is now clear. Given that patient follows with urology, I did call Dr. Pitt and patient was discussed. He agrees discharge home with the catheter and follow-up in his office. Upon discharge, I did realize I forgot to order a UA. Will order now. Patient and family was informed that if it is positive for infection I will send in antibiotics. They confirmed understanding of the plan. Patient stable to discharge home. Impression: 1. Hematuria 2. Urinary retention secondary to #1 3. Chronic anemia Lab Data Labs: Laboratory Results - last 24 hr 12/10/24 12:35 WBC 5.7 RBC 3.08 L Hgb 10.1 L Hct 29.4 L MCV 95.5 H MCH 32.8 H MCHC 34.4 RDW Std Deviation 52.7 H RDW Coeff of Arleen 15.2 H Plt Count 175 MPV 9.2 Immature Gran % (Auto) 0.500 Neut % (Auto) 69.3 Lymph % (Auto) 15.8 L Centre % (Auto) 10.9 H Eos % (Auto) 2.8 Baso % (Auto) 0.7 Absolute Neuts (auto) 3.9 Absolute Lymphs (auto) 0.90 Nucleated RBC % 0 Platelet Estimate ADEQUATE Sodium 133 Potassium 4.9 Chloride 99 Carbon Dioxide 20.3 L Anion Gap 13 BUN 12 Creatinine 1.14 Est GFR (MDRD) Non-Af 65 BUN/Creatinine Ratio 10.6 Glucose 97 Calcium 9.1 Radiography Diagnostic Testing: Clinical Impression(s) from Imaging Studies Abdomen/Pelvis CT 12/10/24 12:08 IMPRESSION: Diffuse bladder wall thickening. A neoplastic process should be ruled out. Mild degree of right hydronephrosis. 2 tiny calculi are seen in the right renal pelvis. Reading Location: [id number] Discharge Plan Triage Chief Complaint: Complaint ED Provider: Jadon Ward Dx/Rx/DC Orders Clinical Impression: Hematuria, Urinary retention Instructions: ED Hematuria, ED Urinary Retention, Male Prescriptions: No Action finasteride 5 mg tablet 5 mg PO QDAY fluticasone propionate [Flonase Allergy Relief] 50 mcg/actuation spray,suspension 1 spray intranasal QDAY PRN (Reason: nasal congestion) Rx Instructions: administer into each nostril cod liver oil Capsule 1 cap PO BID Patient Comments: 530mg amlodipine 10 mg tablet 10 mg PO QHS ketoconazole 2 % shampoo 1 applic topical DAILY PRN (Reason: dry skin) ibuprofen 200 mg tablet 200 mg PO Q6H PRN (Reason: fever or pain) aspirin 81 MG tablet 81 mg PO QHS potassium chloride [Klor-Con M20] 20 mEq tablet,ER particles/crystals 40 meq PO DAILY Rx Instructions: 1500 metoprolol tartrate 100 mg tablet 100 mg PO .COMPLEX Rx Instructions: 100 mg orally 1/2 tablet in the am and 1 tablet in the pm; atorvastatin 20 mg Tablet 20 mg PO QHS tamsulosin [Flomax] 0.4 mg Capsule 0.4 mg PO QHS Milltrium Senior Tablet 1 tab PO DAILY Primary Care Provider: Alireza Dotson Referrals: Prasad Pitt MD [Med Staff - Active Staff] - 3-5 Days Alireza Dotson MD [Primary Care Provider] - 3-5 Days Activity Restrictions/Additional Instructions: Follow-up with urology. Return back to the ED symptoms change or worsen. Baldwin catheter to remain in place. Print Language: Greenlandic Disposition Disposition: Home, Self Care
[2024-12-10 12:46] LABS: Hematocrit 29.4 % (40-54); Hemoglobin 10.1 g/dL (13.0-16.5); Immature Granulocytes Count 0.030 X10^3/uL (0.0-0.0); Mean Corp Hgb Conc 34.4 g/dL (32-36); Mean Corpuscular Volume 95.5 fL (80-94); Mean Platelet Vol. 9.2 fl (6.2-12.0); NRBC Flagged by Analyzer 0 % (0-5); POSITIVE COUNT YES; Platelet Count 175 K/mm3 (150-450); RBC Distribution Width CV 15.2 % (11.6-14.6); RBC Distribution Width SD 52.7 fl (35.1-43.9); Red Blood Count 3.08 M/mm3 (4.6-6.2); White Blood Count 5.7 K/mm3 (4.4-11.0)
[2024-12-10] MEDS: Lidocaine Jelly 2% 20 ML Syringe (URO-JET) 1 APPLIC TOPICAL (12:47)
[2024-12-10 13:05] LABS: Anion Gap 13 (5-15); BUN 12 mg/dL (4-19); BUN/Creat Ratio 10.6 RATIO (10-20); Calcium,Total 9.1 mg/dL (7.6-11.0); Carbon Dioxide 20.3 mmol/L (21.0-32.0); Chloride 99 mmol/L (98-108); Glucose 97 mg/dL (70-99); Potassium 4.9 mmol/L (3.3-5.1)
[2024-12-10 13:23] LABS: Differential Indicated SCAN CRITERIA MET
[2024-12-10 13:43] VITALS: BP 147/78; PULSE 78; O2SAT 99
[2024-12-10 13:49] VITALS: BMI 29.9
[2024-12-10 14:25] VITALS: BP 164/90; PULSE 80; RESP 16; TEMP 36.8; O2SAT 100
[2024-12-10 14:53] LABS: Mucous, Urine 0 SEEN /hpf (<or=2+); Squamous Epithelial Cells - UA 0 SEEN /hpf (0-5)
[2024-12-10 15:03] LABS: Color, Urine Red (Yellow); Glucose, Dipstick Normal (Normal); Ketone-Dipstick Negative (Negative); Leukocyte Esterase-Dipstick Negative /ul (Negative); Nitrite-Dipstick Negative (Negative); Occult Blood-Urine 250 /ul (Negative); Protein-Dipstick 100 mg/dl (Negative); Specific Gravity, Urine 1.005 (1.002-1.030); Urine Bilirubin Dipstick Negative (Negative)
[2024-12-10 15:13] LABS: Red Blood Cells-Urine 50-100 SEEN /hpf (0-5)
== END 2024-12-10 14:49 | disposition home or self-care (01) ==
PROVIDERS: Emergency Provider Surgery; PCP Family Medicine; Visit Provider Surgery
DX: N40.1 Benign prostatic hyperplasia with lower urinary tract symptoms (principal); R33.8 Other retention of urine; R31.9 Hematuria, unspecified; I10 Essential (primary) hypertension; D64.9 Anemia, unspecified; Z79.82 Long term (current) use of aspirin; Z79.899 Other long term (current) drug therapy; Z85.46 Personal history of malignant neoplasm of prostate; Z86.73 Personal history of transient ischemic attack (TIA), and cerebral infarction without residual deficits; Z87.891 Personal history of nicotine dependence
CPT/HCPCS: 51702; 74176; 80048; 81001; 85025; 87086; 99284; A4216

== ENCOUNTER 2024-12-10 19:54 | Emergency (ER) | payer MEDICARE, OTHER, SELFPAY ==
[2024-12-10 19:54] VITALS: BP 146/80; PULSE 78; RESP 16; TEMP 36.9; O2SAT 98
[2024-12-10 20:51] LABS: Mucous, Urine 0 SEEN /hpf (<or=2+)
[2024-12-10 21:29] LABS: Color, Urine Red (Yellow); Glucose, Dipstick Normal (Normal); Ketone-Dipstick 5 mg/dl (Negative); Leukocyte Esterase-Dipstick 25 /ul (Negative); Nitrite-Dipstick Negative (Negative); Occult Blood-Urine 250 /ul (Negative); Protein-Dipstick 500 mg/dl (Negative); Specific Gravity, Urine 1.010 (1.002-1.030); Urine Bilirubin Dipstick Negative (Negative)
[2024-12-10 21:57] VITALS: BP 151/85; PULSE 76; O2SAT 99
[2024-12-10 21:59] LABS: Hematocrit 29.7 % (40-54); Hemoglobin 10.2 g/dL (13.0-16.5); Immature Granulocytes Count 0.040 X10^3/uL (0.0-0.0); Mean Corp Hgb Conc 34.3 g/dL (32-36); Mean Corpuscular Volume 94.3 fL (80-94); Mean Platelet Vol. 8.8 fl (6.2-12.0); NRBC Flagged by Analyzer 0 % (0-5); Platelet Count 162 K/mm3 (150-450); RBC Distribution Width CV 15.1 % (11.6-14.6); RBC Distribution Width SD 52.1 fl (35.1-43.9); Red Blood Count 3.15 M/mm3 (4.6-6.2); White Blood Count 8.0 K/mm3 (4.4-11.0)
--- NOTE | 2024-12-10 22:03 | EX.ED.GUMALE ---
HPI History of Present Illness Chief Complaint: Baldwin C/O Informant: patient, spouse/S.O. and family Narrative Narrative: Presents to the ED spouse and son. Reports was seen in the ED earlier Baldwin catheter was placed due to retention at 1400 cc of urine out. They reported on the way home started having blood. He is on aspirin. No other blood thinners. Denies abdominal cramping. No fever or chills. History of prostate cancer in the past chronic intermittent Baldwin catheters. He states 2 weeks ago fell with Baldwin catheter being pulled. He was seen in [facility] states there was blood. They reported he had severe anemia requiring total of 3 units of blood. Reports urology has seen him had cystostomy requiring cauterization per family. He followed up yesterday in the office stared at the Baldwin catheter removed was told if he cannot urinate to go to the ED. Today in of the ED 11 AM discharged at 2 with a Baldwin catheter. Reported as lightened up slightly. Prior similar symptoms: Yes PFSH PFSH Medical History Walker as ambulation aid Hx of reduction of closed dislocation Loss of hearing Wears glasses Alcohol use Cancer Uses wheelchair Prostate disease Bladder disease Blood clot in vein Restless legs Easy bruising Back pain Injury of back Migraine headache Injury of head and neck TIA (transient ischemic attack) Loss of consciousness Syncope Former smoker History of edema History of stress test Hypertension Home Medications ?Medication ?Instructions ?Recorded ?Last Taken ?Type aspirin 81 mg tablet,delayed 81 mg PO QHS 06/05/18 11/18/24 History release atorvastatin 20 mg tablet 20 mg PO QHS 08/04/21 Unknown History tamsulosin 0.4 mg capsule (Flomax) 0.4 mg PO QHS 08/04/21 Unknown History fluticasone propionate 50 1 spray intranasal QDAY PRN nasal 03/11/24 Unknown History mcg/actuation nasal congestion spray,suspension (Flonase Allergy Relief) potassium chloride 20 mEq 40 meq PO DAILY 03/11/24 Unknown History tablet,extended release(part/cryst) (Klor-Con M) amlodipine 10 mg tablet 10 mg PO QHS 10/03/24 Unknown History cod liver oil 1 cap PO BID 10/03/24 Unknown History finasteride 5 mg tablet 5 mg PO QDAY 10/03/24 Unknown History ibuprofen 200 mg tablet 200 mg PO Q6H PRN fever or pain 10/03/24 Unknown History ketoconazole 2 % shampoo 1 applic topical DAILY PRN dry skin 10/03/24 Unknown History metoprolol tartrate 100 mg tablet 100 mg PO .COMPLEX 10/03/24 Unknown History [id number]-[id number] 1 tab PO DAILY 11/20/24 Unknown History tablet (Milltrium Senior tablet) Allergy/AdvReac Type Severity Reaction Status Date / Time No Known Allergies Allergy Verified 12/10/24 19:56 Family History no significant family his Surgical History Hx of cystoscopy Hx of colonoscopy Social History household members: spouse current occupational status: retired Smoking Status: Former smoker alcohol intake: current caffeine: Yes ROS ROS ED Constitutional Constitutional ED: Denies chills, fever(s) or sweats ENT ENT ED: Denies sore throat Cardiovascular Cardiovascular: Denies chest pain, leg edema, palpitations or racing heartbeat Respiratory/Chest Respiratory/Chest: Denies cough, dyspnea or dyspnea on exertion Gastrointestinal Gastrointestinal: Denies abdominal pain, diarrhea, nausea or vomiting Genitourinary Genitourinary ED: Reports other Details: Hematuria ; Denies dysuria, hematuria or urinary frequency Musculoskeletal Musculoskeletal: Denies back pain, extremity pain or neck pain Integumentary Denies rash or wounds Neurologic Neurologic: Denies headache(s), paresthesias or weakness EXAM Physical Exam Const Vital Signs: 12/10/24 19:54 12/10/24 21:57 12/10/24 22:53 Temperature 98.4 F 98.4 F Temperature Source Temporal Pulse Rate 78 76 76 Respiratory Rate 16 16 Blood Pressure 146/80 H 151/85 H 164/86 H Blood Pressure Mean 102 107 112 Pulse Ox 98 99 99 Oxygen Delivery Method Room Air Room Air 12/10/24 22:54 Temperature Temperature Source Pulse Rate Respiratory Rate Blood Pressure 134/86 H Blood Pressure Mean 102 Pulse Ox Oxygen Delivery Method Positive well nourished and well developed General Appearance ED: well developed and NAD HEENT Reports moist mucous membranes normocephalic and atraumatic Eyes General Eye ED: Yes normal appearance of both eyes; Negative for pale conjunctiva Neck full ROM Chest Wall Chest: Negative for tenderness Resp normal respiratory effort and normal air movement Effort and Inspection: symmetric chest movement; Negative for respiratory distress Cardio regular rate, regular rhythm and no murmurs Peripheral Pulses: pulses 2+ throughout GI normal to inspection, nondistended, normoactive bowel sounds and non-tender Palpation: Negative for guarding or rebound tenderness present Narrative: Three-way Baldwin catheter noted, there was blood in the Baldwin bag. Extremity normal to inspection General Extremety ED: Negative for edema or tenderness General Extremity: Negative for edema Neuro oriented x3 and no sensory deficits noted Sensorium / Orientation: awake and alert Skin no rashes or lesions noted and no wounds MDM MDM MDM Narrative Medical decision making narrative: Interventions / MDM: Differential diagnosis: Hematuria, indwelling Baldwin catheter, anemia Diagnosis considered but do not suspect: UTI however urine negative My EKG interpretation: N/A Imaging independently reviewed and interpreted by myself: N/A External documents reviewed: Discussing with nurse to took care of patient earlier. Apparently had urine retention with initial Baldwin was placed there was blood therefore this was switched over to a three-way as bladder irrigation was performed. It cleared up. Hemoglobin 10.1 in the lab earlier today. Test considered but not ordered:N/A ED course: Patient vital stable nontoxic blood in Baldwin catheter. Family concerned due to his recent history requiring blood transfusion. He states hemoglobin is greater than 8 discharged 2 weeks ago. He has three-way catheter, continuous bladder irrigation will be performed. Will check labs and urine. Urine with blood no infection hemoglobin 10.2 stable from earlier today. After 4 L of bladder irrigation is cleared up. He is on baby aspirin he has no coronary stents or peripheral stents. They reported many strokes in the past. I did discuss with his urologist Dr. Pitt agrees with holding aspirin. He will follow-up with the patient in 1 week in the office. Discussed this with patient and family they will call tomorrow for an appointment. Return precaution discussed. All questions were answered. Re-evaluation: stable Disposition discussed with patient/family/significant other: Patient and family Case discussed with consulting clinician: Urology This note was generated with [employer] dictation software. It may contain incorrect words, spelling, and punctuation that were not noted in checking the note before signing. Lab Data Attestation: I reviewed the patient's lab results. Labs: Laboratory Results - last 24 hr 12/10/24 12/10/24 20:40 21:32 WBC 8.0 RBC 3.15 L Hgb 10.2 L Hct 29.7 L MCV 94.3 H MCH 32.4 H MCHC 34.3 RDW Std Deviation 52.1 H RDW Coeff of Arleen 15.1 H Plt Count 162 MPV 8.8 Immature Gran % (Auto) 0.500 Neut % (Auto) 77.7 H Lymph % (Auto) 8.8 L [place] % (Auto) 10.3 H Eos % (Auto) 2.3 Baso % (Auto) 0.4 Absolute Neuts (auto) 6.2 Absolute Lymphs (auto) 0.70 L Nucleated RBC % 0 Sodium 132 L Potassium 4.1 Chloride 97 L Carbon Dioxide 20.7 L Anion Gap 14 BUN 12 Creatinine 1.05 Est GFR (MDRD) Non-Af 72 BUN/Creatinine Ratio 11.2 Glucose 94 Calcium 9.0 Urine Color Red Urine Clarity Turbid Urine pH 7.0 Ur Specific [place] 1.010 Urine Protein 500 H Urine Glucose (UA) Normal Urine Ketones 5 H Urine Occult Blood 250 H Urine Nitrite Negative Urine Bilirubin Negative Urine Urobilinogen Normal Ur Leukocyte Esterase 25 H Urine RBC > 100 SEEN Urine WBC 5-10 SEEN Ur Squamous Epith Cells 0-5 SEEN Urine Bacteria 0 SEEN Urine Mucus 0 SEEN Discharge Plan Triage Chief Complaint: Baldwin C/O ED Provider: Mello Kilgore Dx/Rx/DC Orders Clinical Impression: Hematuria, Baldwin catheter in place Instructions: ED Baldwin Catheter, Care, ED Hematuria Prescriptions: No Action finasteride 5 mg tablet 5 mg PO QDAY fluticasone propionate [Flonase Allergy Relief] 50 mcg/actuation spray,suspension 1 spray intranasal QDAY PRN (Reason: nasal congestion) Rx Instructions: administer into each nostril cod liver oil Capsule 1 cap PO BID Patient Comments: 530mg amlodipine 10 mg tablet 10 mg PO QHS ketoconazole 2 % shampoo 1 applic topical DAILY PRN (Reason: dry skin) ibuprofen 200 mg tablet 200 mg PO Q6H PRN (Reason: fever or pain) aspirin 81 MG tablet 81 mg PO QHS potassium chloride [Klor-Con M20] 20 mEq tablet,ER particles/crystals 40 meq PO DAILY Rx Instructions: 1500 metoprolol tartrate 100 mg tablet 100 mg PO .COMPLEX Rx Instructions: 100 mg orally 1/2 tablet in the am and 1 tablet in the pm; atorvastatin 20 mg Tablet 20 mg PO QHS tamsulosin [Flomax] 0.4 mg Capsule 0.4 mg PO QHS Milltrium Senior Tablet 1 tab PO DAILY Primary Care Provider: Alireza Dotson Referrals: Prasad Pitt MD [Med Staff - Active Staff] - 1 Week Alireza Dotson MD [Primary Care Provider] - Activity Restrictions/Additional Instructions: Hemoglobin stable at 10.2 earlier was 10.1. Urine without infection. Hold your baby aspirin. Discussed with Dr. Pitt. Follow-up with him in the office in 1 week. Call for an appointment. Print Language: Ukrainian Disposition Disposition: Home, Self Care Discharge Date/Time: 12/10/24 23:06
[2024-12-10 22:13] LABS: Red Blood Cells-Urine > 100 SEEN /hpf (0-5)
[2024-12-10 22:15] LABS: Squamous Epithelial Cells - UA 0-5 SEEN /hpf (0-5)
[2024-12-10 22:35] LABS: Anion Gap 14 (5-15); BUN 12 mg/dL (4-19); BUN/Creat Ratio 11.2 RATIO (10-20); Calcium,Total 9.0 mg/dL (7.6-11.0); Carbon Dioxide 20.7 mmol/L (21.0-32.0); Chloride 97 mmol/L (98-108); Glucose 94 mg/dL (70-99); Potassium 4.1 mmol/L (3.3-5.1)
[2024-12-10 22:53] VITALS: BP 164/86; PULSE 76; RESP 16; TEMP 36.9; O2SAT 99
[2024-12-10 22:54] VITALS: BP 134/86
== END 2024-12-10 23:06 | disposition home or self-care (01) ==
PROVIDERS: Emergency Provider Emergency Medicine; PCP Family Medicine; Visit Provider Emergency Medicine
DX: R31.9 Hematuria, unspecified (principal); N40.1 Benign prostatic hyperplasia with lower urinary tract symptoms; R33.8 Other retention of urine; D64.9 Anemia, unspecified; I10 Essential (primary) hypertension; Z79.82 Long term (current) use of aspirin; Z79.899 Other long term (current) drug therapy; Z85.46 Personal history of malignant neoplasm of prostate; Z86.73 Personal history of transient ischemic attack (TIA), and cerebral infarction without residual deficits; Z87.891 Personal history of nicotine dependence
CPT/HCPCS: 36415; 80048; 81001; 85025; 99282; A4216

== ENCOUNTER 2024-12-16 01:30 | Inpatient (IN) | payer MEDICARE, OTHER, SELFPAY ==
[2024-12-16 10:10] VITALS: BMI 29.2
[2024-12-16 10:32] VITALS: BP 132/73; PULSE 104; RESP 18; TEMP 36.6; O2SAT 96
--- NOTE | 2024-12-16 11:20 | HP.PCM_ITS ---
HPI - General General Date of Admission: 12/16/24 Date of Service: 12/16/24 Chief Complaint: Gross hematuria and bleeding HPI Narrative ELLIOTT CARMONA, is a 79 M who presents To my office with gross hematuria, he has a history of radiation therapy and hormone deprivation therapy for prostate cancer last PSA was 0.19. He also has a history of bladder cancer and had a TURBT in 2019 I saw the patient for recurrent bleeding from the bladder neck and from the prostate area. Cystoscopy was done. He has a history of BPH obstruction and currently taking finasteride and Flomax. He was traveling and then started having significant bleeding and in [facility] he was taken the surgery by an outside urologist and underwent a TURP in [facility] I don't have the records but I have the records the patient himself since then he is experiencing a lot of bleeding he's been in the emergency room several times and he finally came to my office for an appointment it has significant bleeding at this point all I can do is admit the patient can have him put a catheter and wanting the surgery tomorrow to removal the blood clots and cauterized bleeding which presumably is from the prostate bed from the prior surgery. [facility] Medical History Kidney stones Stroke/cerebrovascular accident Walker as ambulation aid Hx of reduction of closed dislocation Loss of hearing Wears glasses Alcohol use Cancer Uses wheelchair Prostate disease Bladder disease Blood clot in vein Restless legs Easy bruising Back pain Injury of back Migraine headache Injury of head and neck TIA (transient ischemic attack) Loss of consciousness Syncope Former smoker History of edema History of stress test Hypertension Home Medications ?Medication ?Instructions ?Recorded ?Last Taken ?Type aspirin 81 mg tablet,delayed 81 mg PO QHS 06/05/18 History release Held on 12/16/24. Instructions: Ordered atorvastatin 20 mg tablet 20 mg PO QHS 08/04/21 Unknow n History tamsulosin 0.4 mg capsule (Flomax) 0.4 mg PO QHS 08/04 Unknown History fluticasone propionate 50 1 spray intranasal QDAY PRN nasal 03/11/24 Unknown History mcg/actuation nasal congestion spray,suspension (Flonase Allergy Relief) potassium chloride 20 mEq 40 meq PO DAILY 03/11/24 Unk nown History tablet,extended release(part/cryst) (Klor-Con M) amlodipine 10 mg tablet 10 mg PO QHS 10/03/24 Unknow n History cod liver oil 1 cap PO BID 10/03/24 Unknow n History finasteride 5 mg tablet 5 mg PO QDAY 10/03/24 Unknow n History ibuprofen 200 mg tablet 200 mg PO Q6H PRN fever or p ain 10/03/24 Unknown History ketoconazole 2 % shampoo 1 applic topical DAILY PRN d ry skin 10/03/24 Unknown History metoprolol tartrate 100 mg tablet 100 mg PO .COMPLEX 0 10/03/24 Unknown History tuaxxffaqjdl-[id number]-oibrag 1 tab PO DAILY 11/20/24 U nknown History tablet (Milltrium Senior tablet) Allergy/AdvReac Type Severity Reaction Status Date / Time No Known Allergies Allergy Verified 12/10/24 19:56 Surgical History Hx of cystoscopy Hx of colonoscopy Social History household members: spouse current occupational status: retired Smoking Status: Former smoker alcohol intake: current caffeine: Yes Vital Signs Vital Signs Vital Signs: 12/16/24 10:32 12/16/24 10:38 Temperature 97.8 F Temperature Source Oral Pulse Rate 104 H Respiratory Rate 18 Respiratory Effort Normal Blood Pressure 132/73 H Blood Pressure Mean 92 Blood Pressure Source Monitor Blood Pressure Position Sitting Blood Pressure Location Left Arm Pulse Ox 96 Oxygen Delivery Method Room Air Room Air Weight Weight: 92.5 kg Body Mass Index (BMI) 29.2 Assessment & Plan Assessment/Plan (1) Baldwin catheter in place: (2) Hematuria: PLAN: NPO at [place], plan to taken the surgery tomorrow for cystoscopy evacuation blood clots and cauterization of bleeding for now the nurses will place a Baldwin catheter in the near gate as necessary to keep the catheter draining (3) Urinary retention: (4) Hematuria:
[2024-12-16 15:13] VITALS: BP 137/63; PULSE 89; RESP 18; TEMP 36.6; O2SAT 97
[2024-12-16] MEDS: 0.9% Normal Saline (1000mL) 1,000 ML 50 ML IV (15:34)
[2024-12-16 21:10] VITALS: O2SAT 97
[2024-12-16 22:00] VITALS: BP 140/65; PULSE 75; RESP 15; TEMP 36.6; O2SAT 95
[2024-12-16 22:18] VITALS: BP 141/72; PULSE 89
[2024-12-16 22:48] VITALS: BP 145/77; PULSE 87; RESP 18; TEMP 36.6; O2SAT 97
[2024-12-17] VITALS (16 sets, daily range): BP systolic 95–172; BP diastolic 66–86; PULSE 76–91; RESP 12–18; TEMP 36.3–37.3; O2SAT 95–98
[2024-12-17 05:58] LABS: Hematocrit 24.5 % (40-54); Hemoglobin 8.3 g/dL (13.0-16.5); Immature Granulocytes Count 0.070 X10^3/uL (0.0-0.0); Mean Corp Hgb Conc 33.9 g/dL (32-36); Mean Corpuscular Volume 93.2 fL (80-94); Mean Platelet Vol. 8.6 fl (6.2-12.0); NRBC Flagged by Analyzer 0 % (0-5); Platelet Count 188 K/mm3 (150-450); RBC Distribution Width CV 13.6 % (11.6-14.6); RBC Distribution Width SD 46.7 fl (35.1-43.9); Red Blood Count 2.63 M/mm3 (4.6-6.2); White Blood Count 6.0 K/mm3 (4.4-11.0)
[2024-12-17 06:21] LABS: Anion Gap 11 (5-15); BUN 6 mg/dL (4-19); BUN/Creat Ratio 6.4 RATIO (10-20); Calcium,Total 8.3 mg/dL (7.6-11.0); Carbon Dioxide 20.4 mmol/L (21.0-32.0); Chloride 96 mmol/L (98-108); Estimated Creatinine Clearance 70.57 ml/min (50-250); Glucose 109 mg/dL (70-99); Potassium 3.9 mmol/L (3.3-5.1)
--- NOTE | 2024-12-17 09:55 | CASEMGMT ---
RN?CM?ASSESSMENT ? RN?CM?to room to meet with patient for initial transition planning/care coordination?assessment.?RN?CM?introduced self and role at [facility].? Pt voices understanding and consents to?assessment?at this time.? Pt resting in bed in no distress at this time.? @ bedside. Pt is A/O at this time and answers all questions appropriately.?? Care providers, pharmacy, and demographics verified/updated at this time. ? Strata: 2 PCP: Dr Alireza Dotson. Pt also goes to [facility] yearly. He has an appt this Sunday, 12/19 @ 10:30 AM. Pt and are hopeful pt will be discharged by tomorrow, 12/18 so he can still make it to this appt on Sunday. Specialists: Dr Pitt-urology, Dr Valera, urology @ [facility], Dr Albert Burt- Neuro, Dr Pastrana & Dr Ureña @ [facility]. Preferred Pharmacy: [facility] @ discharge. Otherwise goes to [facility] in [place]. Insurance: [facility], [employer], [place] benefits. Prescription Benefit:?yes LNOK: Living Arrangements: Lives w/ in home w/ramp entrance. states pt has had back issues for years, but since he passed out & fell ~ 3 wks ago, his mobility has been very limited. He has difficulty with bending/twisting. assists w/all ADL's and does all IADL's/home mgnt tasks now. Pt able to stand with his walker and take a couple steps to his W/C. Transportation:? DME: Has the following DME:?BSC, lift chair, grab bars, walker, W/C, ramp. Pt has a shower chair available, but does not use. ? and pt state no need for further DME at this time.? HHC/SNF: Pt has had HHC through the [place] in the past and has been to [facility]. ? Pt and wish for pt to return home. They are aware therapy to evaluate pt and give recommendations. CM to f/u after therapy evals for any further discharge planning/needs. Pt and voice no further concerns/needs at this time.? Advised them to ask for?CM?if any further questions/concerns/needs arise.? They voice understanding. ? PLAN:??Home w/spousal support and discharge plans in place. PT/OT evals pending. Follow for any recommendations. ? Tano BSN?RN?CM ?
--- NOTE | 2024-12-17 09:55 | CASEMGMT ---
RN?CM?ASSESSMENT ? RN?CM?to room to meet with patient for initial transition planning/care coordination?assessment.?RN?CM?introduced self and role at [facility].? Pt voices understanding and consents to?assessment?at this time.? Pt resting in bed in no distress at this time.? Pt is A/O at this time and answers all questions appropriately.?? Care providers, pharmacy, and demographics verified/updated at this time. ? Strata: PCP: Specialists: Preferred Pharmacy: Insurance: Prescription Benefit:? Living Will/HPOA:? Pt does not currently have LW/HCPOA and declines info at this time. States does not have LW or HCPOA .? Interested in more information but states does not want to talk with SW at this time to complete paperwork.? Provided information on advanced directives. ?Pt made aware SW can be contacted as an out-pt and make appt in the future if desired. LNOK: Living Arrangements: Transportation:?Pt states drives self and states no transportation concerns at this time.? DME: ? Denies using any DME and denies needs.? States has the following DME:? Pt states no need for further DME at this time.? HHC/SNF: ? Pt wishes to return home and states has no concerns with going home at time of discharge. CM?to follow for home oxygen needs and any further discharge planning/needs.? Pt voices no further concerns/needs at this time.? Advised pt to ask for?CM?if any further questions/concerns/needs arise.? Voices understanding. ? PLAN:?? ? Tano BSN?RN?CM ?
[2024-12-17] MEDS: 0.9% Normal Saline (1000mL) 1,000 ML 50 ML IV (11:35)
--- NOTE | 2024-12-17 14:22 | PCM.PRE.AN2 ---
ASA Classification* ASA Classification ASA Classification: 3 Assessment & Plan Anesthesia* Anesthesia Assessment Anesthesia Assessment: Discussed sedation and/or anesthesia options, risks, benefits, and alternatives with patient/parents/legal guardian/POA. Questions invited. The patient/parents/legal guardian/POA seems to understand and agrees to proceed with anesthesia plan. Reviewed the physical assessment, medical history, allergy history and patient home medications list prior to surgery/procedure/anesthetic and documented any changes. Performed airway and anesthesia risk assessments. Anesthesia Type Anesthesia Type: General History Source History Obtained from:: Patient and Chart Anesthesia Focused Assessment* Temperature: 99.1 F Pulse Rate: 82 Blood Pressure: 172/79 Respiratory Rate: 16 Pulse Ox: 97 Oxygen Delivery Method: Room Air Airway Assessment Mouth opens: >3 cm Mallampati Score: III Teeth Condition: Missing (Patient has multiple teeth missing. Rest are tight.) Neck Range of motion (ROM): Limited ROM (Somewhat Decreased) Labs Anesthesia Preop lab: CBC WBC 6.0 K/mm3 (4.4-11.0) 12/17/24 05:40 12/17/24 RBC 2.63 M/mm3 (4.6-6.2) L 12/17/24 05:40 12/17/24 Hgb 8.3 g/dL (13.0-16.5) L 12/17/24 05:40 12/17/24 Hct 24.5 % (40-54) L 12/17/24 05:40 12/17/24 Plt Count 188 K/mm3 (150-450) 12/17/24 05:40 12/17/24 CHEMISTRY Potassium 3.9 mmol/L (3.3-5.1) 12/17/24 05:40 12/17/24 Sodium 127 mmol/L (133-145) L 12/17/24 05:40 12/17/24 BUN 6 mg/dL (4-19) 12/17/24 05:40 12/17/24 Creatinine 0.97 mg/dL (0.70-1.20) 12/17/24 05:40 12/17/24 Glucose 109 mg/dL (70-99) H 12/17/24 05:40 12/17/24 COAG PT 13.5 SECONDS (11.7-14.9) 11/21/24 09:30 11/21/24 Pre-Assessment Diagnosis/Proposed Procedure Planned Operative Procedure(s): Cystoscopy, evacuation of blood clots. 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 When Was Last Pacemaker Check QUESTION #4 FULL TEXT: You/Your Family Experience fever (hyperthermia) with Anesthesia Last Oral Intake Last Oral intake: Last Oral Intake NPO since 00:00 12/16/24 22:48 Meds taken in AM with sips of Yes 12/16/24 22:48 water? Meds patient instructed to Metoprolol and Tylenol 12/16/24 22:48 take am of surgery Any additional information?: Yes Meds taken in AM with sips of water?: Yes PONV PONV - pipe organ builder: PONV - pipe organ builder Female HX of Motion Sickness HX of N/V After Surgery Non-Smoker Duration of Surgery greater than 60 minutes Number of Risk Factors PONV Score Height & Weight Height & Weight: Anesthesia: Height & Weight Height 5 ft 10 in 12/16/24 16:13 Weight: 92.5 kg 12/16/24 22:48 Body Mass Index (BMI) 29.2 12/16/24 10:10 Respiratory Assessment Respiratory Assessment - pipe organ builder: Respiratory Tract Infection Hx - pipe organ builder Hx Respiratory Tract Infection No 12/16/24 22:48 STOP Sleep Apnea STOP Sleep Apnea - pipe organ builder: STOP Sleep Apnea - pipe organ builder Hx Hypertension Yes 12/16/24 10:10 Hx Sleep Apnea No 12/16/24 10:10 CPAP BIPAP Do you snore loudly (louder No 12/16/24 10:10 than talking or can be heard Do you often feel tired/ No 12/16/24 10:10 fatigued/ sleepy during daytime? Has anyone observed you stop No 12/16/24 10:10 breathing during sleep? STOP Results Negative 12/16/24 10:10 QUESTION #5 FULL TEXT : Do you snore loudly (louder than talking or can be heard through closed doors)? 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 Specify any problems Hx of Preganancy in last 3 No 12/16/24 10:10 Months Nurse Filling Out Transfusion KMESSENGE 12/16/24 10:10 & Questions: Date: 12/16/24 12/16/24 10:10 Time: 10:30 12/16/24 10:10 Patient unable to answer at this time (ie. confused, unrespo /Reproduction History /Reproductive History - pipe organ builder: /Reproductive Hx- pipe organ builder Hx Now Gestational Age (in weeks): EDC: Hx Hx Para Hx Section SAB No 08/12/21 11:00 Active Medications Active Medications: Current Medications Generic Name Dose Route Start Last Admin Trade Name Freq PRN Reason Stop Dose Admin Acetaminophen 650 mg 12/16/24 11:27 12/17/24 08:28 Acetaminophen 325 Mg Tablet PO 650 mg Q6H PRN PRN Administration Pain Score 1-10 Amlodipine Besylate 10 mg 12/16/24 22:00 12/16/24 22:17 Amlodipine 10 Mg Tablet PO 10 mg QHS JEREMY Administration Protocol Atorvastatin Calcium 20 mg 12/16/24 22:00 12/16/24 22:11 Atorvastatin Calcium 20 Mg Tablet PO 20 mg QHS JEREMY Administration Finasteride 5 mg 12/17/24 10:00 Finasteride 5 Mg Tablet PO DAILY JEREMY Fluticasone Propionate 1 spray 12/17/24 10:00 Fluticasone 0.05% 1 [place] Nasal.Sry NASAL DAILY PRN nasal congestion Sodium Chloride 250 mls @ 15 mls/hr 12/16/24 10:12 IV .[id number] PRN Saline Flush Sodium Chloride 250 mls @ 15 mls/hr 12/16/24 10:12 IV .[id number] PRN Additional IVPB Infusion Sodium Chloride 1,000 mls @ 50 mls/hr 12/16/24 11:30 12/17/24 11:35 IV 50 mls/hr .Q20H JEREMY Administration Ciprofloxacin 400 mg in 200 mls @ 200 mls/hr 12/16/24 13:00 12/17/24 09:18 Cipro IV 200 mls/hr Q12 JEREMY Administration Lactated Ringer's 1,000 mls @ 15 mls/hr 12/17/24 13:45 IV .Q48H JEREMY Metoprolol Tartrate 100 mg 12/16/24 22:00 12/16/24 22:18 Metoprolol Tartrate 100 Mg Tablet PO 100 mg QHS JEREMY Administration Protocol Metoprolol Tartrate 50 mg 12/17/24 10:00 12/17/24 08:29 Metoprolol Tartrate 50 Mg Tablet PO 50 mg DAILY JEREMY Administration Ondansetron HCl 4 mg 12/16/24 11:27 Ondansetron 4 Mg/2 Ml Vial IV Q8H PRN NAUSEA/VOMITING Oxycodone HCl 5 - 10 mg 12/16/24 11:27 Oxycodone 5 Mg Tablet PO Q6H PRN PRN Pain Score 4-10 Potassium Chloride 40 meq 12/17/24 15:00 Potassium Chloride Oral Tablet 20 Meq PO 1500 JEREMY Sodium Chloride 10 - 40 ml 12/16/24 10:12 0.9% Saline Lock 10 Ml Syringe IV UD PRN SALINE FLUSH Tamsulosin HCl 0.4 mg 12/16/24 22:00 12/16/24 22:11 Tamsulosin Hcl 0.4 Mg Capsule PO 0.4 mg QHS JEREMY Administration PFSH Medical History Kidney stones Stroke/cerebrovascular accident Walker as ambulation aid Hx of reduction of closed dislocation Loss of hearing Wears glasses Alcohol use Cancer Uses wheelchair Prostate disease Bladder disease Blood clot in vein Restless legs Easy bruising Back pain Injury of back Migraine headache Injury of head and neck TIA (transient ischemic attack) Loss of consciousness Syncope Former smoker History of edema History of stress test Hypertension Home Medications ?Medication ?Instructions ?Recorded ?Last Taken ?Type aspirin 81 mg tablet,delayed 81 mg PO QHS 06/05/18 11/18/24 History release Held on 12/16/24. Instructions: MD Ordered atorvastatin 20 mg tablet 20 mg PO QHS 08/04/21 Unknown History tamsulosin 0.4 mg capsule (Flomax) 0.4 mg PO QHS 08/04/21 Unknown History fluticasone propionate 50 1 spray intranasal QDAY PRN nasal 03/11/24 Unknown History mcg/actuation nasal congestion spray,suspension (Flonase Allergy Relief) potassium chloride 20 mEq 40 meq PO DAILY 03/11/24 Unknown History tablet,extended release(part/cryst) (Klor-Con M) amlodipine 10 mg tablet 10 mg PO QHS 10/03/24 Unknown History cod liver oil 1 cap PO BID 10/03/24 Unknown History finasteride 5 mg tablet 5 mg PO QDAY 10/03/24 Unknown History ibuprofen 200 mg tablet 200 mg PO Q6H PRN fever or pain 10/03/24 Unknown History ketoconazole 2 % shampoo 1 applic topical DAILY PRN dry skin 10/03/24 Unknown History metoprolol tartrate 100 mg tablet 100 mg PO .COMPLEX pain 10/03/24 12/17/24 History mvysutzhcpoj-sqvhwjtr-drjkpm 1 tab PO DAILY 11/20/24 Unknown History tablet (Milltrium Senior tablet) Allergy/AdvReac Type Severity Reaction Status Date / Time No Known Allergies Allergy Verified 12/10/24 19:56 Surgical History Hx of cystoscopy Hx of colonoscopy Social History household members: spouse current occupational status: retired Smoking Status: Former smoker alcohol intake: current caffeine: Yes Review of Systems (Anesthesia) ROS Narrative System reviewed and no additional complaints, except as documented.
[2024-12-17] MEDS: 0.9% Normal Saline (1000mL) 500 ML IV (15:41)
[2024-12-17] MEDS: Lidocaine 1% (5 ml sdv) 5 ML Vial IV (15:49)
[2024-12-17] MEDS: fentaNYL 100 MCG/2 ML Ampul 50 MCG IV (15:56)
--- NOTE | 2024-12-17 16:07 | OP.PCM_ITS ---
Operative Report (Standard) Operative Information Date of Procedure: 12/17/24 Pre-Operative Diagnosis: Hemorrhaging from the prostate Post-Operative Diagnosis: The same Surgery/Procedure Performed: Cystoscopy evacuation of blood clots and cauterization of the prostate and bladder neck switch adjuster: No Type of Anesthesia: General RN Documented Start/Stop Times: Operation Date: 12/17/24 14:20 Case Time Into Pre-Op 12/17/24 13:43 Out of Pre-Op 12/17/24 15:40 Anesthesia Start 12/17/24 15:41 Into Room 12/17/24 15:41 Procedure Start 12/17/24 15:53 Procedure End 12/17/24 16:06 Procedure Start Time: 15:53 Procedure Stop Time: 16:06 Select all DRAINS/GRAFTS/IMPLANTS that apply: None Estimated Blood Loss: Minimal Specimen collected: No Description of surgery: Is a 79-year-old male presents to my office with hemorrhaging he had a procedure done at outside hospital and I have the records but supposedly he had a TURP, presents to my office with bleeding we tried to manage this with the catheter but could not bleeding so he was admitted to the hospital taken to surgery today to evacuate the blood clots and cauterize the eyes was because of the bleeding Patient was taken back to the operating room after induction of anesthesia he was placed upon on the table Baldwin catheter was removed he was cleaned prepped and draped you sterile fashion went into the bladder with a 26 [place] continuous-flow resectoscope once I got inside the bladder there was a significant bout of clots within the bladder these were all evacuated out and then I saw some active pumping bleeding from the bladder neck I used the button Olympus bipolar resectoscope and I cauterized this I then cauterized the prostate extensively turned off the irrigation there is no active bleeding we then put a catheter in the bladder a 22 [place] three-way catheter for continuous bladder irrigation patient ascetic was reversed taken back to the PACU in good condition he did have a wide open channel from what appeared to be a TURP and look the sphincter was intact so we will keep him overnight for irrigation and will take the catheter out for voiding trial tomorrow. Surgical Findings: Blood clots in the bladder removed and cauterization from the bladder neck cauterized in the prostate cauterized Complications Complications: No Admit VTE Documentation VTE Present on Admission: No VTE Mechan Device Prophylaxis: SCD's VTE Pharm Prophylaxis ordered?: No
--- NOTE | 2024-12-17 16:16 | PCM.POST.ANE ---
Anesthesia: Postop Eval I Current Vital Signs Temperature: 97.4 F Pulse Rate: 91 Blood Pressure: 95/79 Respiratory Rate: 16 Pulse Ox: 96 Oxygen Delivery Method: Room Air Assessment Airway patent: Yes Spontaneous unlabored respirations: Yes Mental status: Awake nausea: No Vomiting: No Anesthesia Complication: No Fluid Hydration Crystalloid volume administer (ml): 500 Total IV fluid infused: 500 Progress Note Anesthesia document: Postop Eval 1 completed: Yes
--- NOTE | 2024-12-17 16:45 | NURSING ---
Patient return from OR at this time. Awake but drowsy. Tolerated procedure well. CBI in place with clear urine flowing. Dinner ordered.
[2024-12-17] MEDS: Potassium Chloride Oral Tablet 20 MEQ 40 MEQ PO (17:54)
[2024-12-18] VITALS (9 sets, daily range): BP systolic 115–149; BP diastolic 66–76; PULSE 74–95; RESP 15–18; TEMP 36.5–36.8; O2SAT 94–98
[2024-12-18] MEDS: 0.9% Normal Saline (1000mL) 1,000 ML 50 ML IV (02:28)
--- NOTE | 2024-12-18 07:24 | PCM.DC.SUM ---
Providers Date of Admission: 12/16/24 Primary Care Physician: Dr. Alireza Dotson MD Reason For Visit: HEMATURIA/BLEEDING Diagnosis Discharge Diagnosis (1) Baldwin catheter in place: Status: Inactive Code(s): Z97.8 - Presence of other specified devices (2) Hematuria: Status: Inactive Code(s): R31.9 - Hematuria, unspecified Plan: NPO at [place], plan to taken the surgery tomorrow for cystoscopy evacuation blood clots and cauterization of bleeding for now the nurses will place a Baldwin catheter in the near gate as necessary to keep the catheter draining (3) Urinary retention: Status: Inactive Code(s): R33.9 - Retention of urine, unspecified Medications at Discharge Home Medications aspirin 81 mg tablet,delayed release 81 mg PO QHS 06/05/18 Held on 12/18/24. Instructions: Resume on 01/01/25. atorvastatin 20 mg tablet 20 mg PO QHS 08/04/21 tamsulosin 0.4 mg capsule (Flomax) 0.4 mg PO QHS 08/04/21 fluticasone propionate 50 mcg/actuation nasal spray,suspension (Flonase Allergy Relief) 1 spray intranasal QDAY PRN nasal congestion 03/11/24 potassium chloride 20 mEq tablet,extended release(part/cryst) (Klor-Con M) 40 meq PO DAILY 03/11/24 amlodipine 10 mg tablet 10 mg PO QHS 10/03/24 cod liver oil 1 cap PO BID 10/03/24 finasteride 5 mg tablet 5 mg PO QDAY 10/03/24 ibuprofen 200 mg tablet 200 mg PO Q6H PRN fever or pain 10/03/24 ketoconazole 2 % shampoo 1 applic topical DAILY PRN dry skin 10/03/24 metoprolol tartrate 100 mg tablet 100 mg PO .COMPLEX pain 10/03/24 vfsghvwcsucm-zeqmoafp-tyntcx tablet (Milltrium Senior tablet) 1 tab PO DAILY 11/20/24 Hospital Course Operations - (cauterization of bleeding from prostate and bladder neck) Medical Records Data Medical Nutrition Assessment Dietitian: Malnutrition Criteria Met Start: 12/16/24 16:20 Freq: Status: Active Protocol: Document 12/16/24 16:21 LO (Rec: 12/16/24 16:21 LO [id number]) Nutrition Malnutrition Evidence of Yes Malnutrition Exists Malnutrition (severe Acute Illness/Injury ): Evidenced By Suboptimal Energy Intake (Severe),Weight Loss (Severe) Clinical Problem Acute Disease or Injury Related Malnutrition Etiology severe related to suboptimal appetite 2/2 back pain Signs/Symptoms as evidenced by 23.1lb (10.1%) weight loss in ~1 month and PO intakes meeting <75% of estimated nutrition need for ~1 month. Status Active Problem Recommendation Dietitian Continue Regular diet to optimize oral intakes. Recommendations/ Changes Weight / BMI Weight Weight: 92.5 kg Body Mass Index (BMI) 29.2 ABG / Lab / Microbiology Data 12/17/24 05:40 12/17/24 05:40 D/C Instructions DC O2, CPAP, BIPAP Needs Home O2 Discharge instructions: No Meaningful Use Info Meaningful Use Meaningful Use Diagnoses (Choose all that apply): None applicable Discharge Plan Admission Admit Date/Time: 12/16/24 01:30 Primary Reason for Your Visit: cauterization of bladder Attending Provider: Prasad Pitt Primary Care Provider: Alireza Dotson Discharge Orders/Prescriptions Prescriptions: Continued finasteride 5 mg tablet 5 mg PO QDAY fluticasone propionate [Flonase Allergy Relief] 50 mcg/actuation spray,suspension 1 spray intranasal QDAY PRN (Reason: nasal congestion) Rx Instructions: administer into each nostril cod liver oil Capsule 1 cap PO BID Patient Comments: 530mg amlodipine 10 mg tablet 10 mg PO QHS ketoconazole 2 % shampoo 1 applic topical DAILY PRN (Reason: dry skin) ibuprofen 200 mg tablet 200 mg PO Q6H PRN (Reason: fever or pain) potassium chloride [Klor-Con M20] 20 mEq tablet,ER particles/crystals 40 meq PO DAILY Rx Instructions: 1500 metoprolol tartrate 100 mg tablet 100 mg PO .COMPLEX Rx Instructions: 100 mg orally 1/2 tablet in the am and 1 tablet in the pm; atorvastatin 20 mg Tablet 20 mg PO QHS tamsulosin [Flomax] 0.4 mg Capsule 0.4 mg PO QHS Milltrium Senior Tablet 1 tab PO DAILY Held aspirin 81 MG tablet 81 mg PO QHS Hold Instructions: Resume on 01/01/25. Referrals / Follow Up: Alireza Dotson MD [Primary Care Provider] - Disposition Disposition (needs filled in before D/C Order can be placed): Home, Self Care
--- NOTE | 2024-12-18 07:25 | DCINST_ITS ---
Discharge Instructions DC O2, CPAP, BIPAP needs Home O2 Discharge instructions: No Dressing / Incision Discharge Activity: Return to Normal Activity and May Not Drive (while taking narcotic pain medications.) Dressing / Incision Call your doctor if you observe: Fever of 101 or Higher Follow Up Care Please Follow Up With: Prasad Pitt MD When: Call [phone] for an appointment Test Results: Test results from this visit will be discussed in further detail at your follow- up appointment, if applicable. Discharge Plan Admission Admit Date/Time: 12/16/24 01:30 Primary Reason for Your Visit: cauterization of bladder Attending Provider: Prasad Pitt Primary Care Provider: Alireza Dotson Discharge Orders/Prescriptions Prescriptions: Continued finasteride 5 mg tablet 5 mg PO QDAY fluticasone propionate [Flonase Allergy Relief] 50 mcg/actuation spray,suspension 1 spray intranasal QDAY PRN (Reason: nasal congestion) Rx Instructions: administer into each nostril cod liver oil Capsule 1 cap PO BID Patient Comments: 530mg amlodipine 10 mg tablet 10 mg PO QHS ketoconazole 2 % shampoo 1 applic topical DAILY PRN (Reason: dry skin) ibuprofen 200 mg tablet 200 mg PO Q6H PRN (Reason: fever or pain) potassium chloride [Klor-Con M20] 20 mEq tablet,ER particles/crystals 40 meq PO DAILY Rx Instructions: 1500 metoprolol tartrate 100 mg tablet 100 mg PO .COMPLEX Rx Instructions: 100 mg orally 1/2 tablet in the am and 1 tablet in the pm; atorvastatin 20 mg Tablet 20 mg PO QHS tamsulosin [Flomax] 0.4 mg Capsule 0.4 mg PO QHS Milltrium Senior Tablet 1 tab PO DAILY Held aspirin 81 MG tablet 81 mg PO QHS Hold Instructions: Resume on 01/01/25. Referrals / Follow Up: Alireza Dotson MD [Primary Care Provider] - Disposition Disposition (needs filled in before D/C Order can be placed): Home, Self Care
[2024-12-18 07:48] LABS: Hematocrit 23.6 % (40-54); Hemoglobin 8.1 g/dL (13.0-16.5); Immature Granulocytes Count 0.070 X10^3/uL (0.0-0.0); Mean Corp Hgb Conc 34.3 g/dL (32-36); Mean Corpuscular Volume 92.9 fL (80-94); Mean Platelet Vol. 8.5 fl (6.2-12.0); NRBC Flagged by Analyzer 0 % (0-5); Platelet Count 203 K/mm3 (150-450); RBC Distribution Width CV 13.6 % (11.6-14.6); RBC Distribution Width SD 46.6 fl (35.1-43.9); Red Blood Count 2.54 M/mm3 (4.6-6.2); White Blood Count 5.3 K/mm3 (4.4-11.0)
[2024-12-18 08:11] LABS: Anion Gap 10 (5-15); BUN 5 mg/dL (4-19); BUN/Creat Ratio 5.1 RATIO (10-20); Calcium,Total 8.3 mg/dL (7.6-11.0); Carbon Dioxide 22.4 mmol/L (21.0-32.0); Chloride 96 mmol/L (98-108); Estimated Creatinine Clearance 73.61 ml/min (50-250); Glucose 101 mg/dL (70-99); Potassium 4.0 mmol/L (3.3-5.1)
--- NOTE | 2024-12-18 10:21 | CASEMGMT ---
[facility], updated [facility]oc.
--- NOTE | 2024-12-18 11:42 | CASEMGMT ---
Addendum entered by Ivana Wetzel 12/18/24 12:06: Addendum: Pt states he has had a catheter in the past and feels comfortable caring for it should he be dc'd with one again. Pt denies any current smoking but states he drinks too much. Pt would not give an amount. SW aware. Pt and deny any further needs at this time. Original Note: RN CM into pt room, pt sitting up in chair with beside her. Pt has not been evaluated by PT yet as pt was off floor when attempted. Pt states he used to go to [facility] as an outpt but at this time and for the last month his legs have not been working quite right. Pt is agreeable to [facility] and he states that [facility] does this and prefers them as he is familiar with them. TC to [facility], spoke with Katlyn, she states they are able to accept pt. Faxed H&P, DC instructions, order and face sheet to [facility] at this time. Updated pt on acceptance.
--- NOTE | 2024-12-18 11:52 | PHA.DC.MR.R ---
Pharmacy CT Med Reconciliation Pharmacy Service has performed discharge medication reconciliation for this patient. No new medications at time of discharge medication list review. medications reviewed are from previously reported home medications. The patient's discharge medication list was reviewed for discrepancies and discrepancies were resolved. Medications at Discharge Home Medications aspirin 81 mg tablet,delayed release 81 mg PO QHS 06/05/18 Held on 12/18/24. Instructions: Resume on 01/01/25. atorvastatin 20 mg tablet 20 mg PO QHS 08/04/21 tamsulosin 0.4 mg capsule (Flomax) 0.4 mg PO QHS 08/04/21 fluticasone propionate 50 mcg/actuation nasal spray,suspension (Flonase Allergy Relief) 1 spray intranasal QDAY PRN nasal congestion 03/11/24 potassium chloride 20 mEq tablet,extended release(part/cryst) (Klor-Con M) 40 meq PO DAILY 03/11/24 amlodipine 10 mg tablet 10 mg PO QHS 10/03/24 cod liver oil 1 cap PO BID 10/03/24 finasteride 5 mg tablet 5 mg PO QDAY 10/03/24 ibuprofen 200 mg tablet 200 mg PO Q6H PRN fever or pain 10/03/24 ketoconazole 2 % shampoo 1 applic topical DAILY PRN dry skin 10/03/24 metoprolol tartrate 100 mg tablet 100 mg PO .COMPLEX pain 10/03/24 [id number]-mxzelhjs-kyccii tablet (Milltrium Senior tablet) 1 tab PO DAILY 11/20/24
--- NOTE | 2024-12-18 12:00 | CASEMGMT ---
Social Work Collaboration with CHUY PEREZ today. Patient has history of daily alcohol use. Met with patient in room, introducing to self and social work role. Patient's in the room. Patient agreeable for to be present; did suggest step out and even offered but patient declined. Explored patient's alcohol use. Patient reports does drink and has been drinking for many years, usually about 2 light beers up to about 6. When social work explored whether patient has ever had any issues with alcohol cessation, patient denied stating that would go for months at a time without alcohol when in the . Patient also stated he is 80 years old, indicating that at this point in life, not interested in additional resources when social media editor suggested could provide resources. Patient talkative and attempted to move conversation to politics and importance of voter registration. Supportive listening offered, and let patient know that social work is available should needs arise. present, sitting beside the patient and presenting as supportive. No other needs requested or indicated. -AINSLEY Herrera
[2024-12-18] MEDS: Potassium Chloride Oral Tablet 20 MEQ 40 MEQ PO (16:14)
[2024-12-19] MEDS: 0.9% Normal Saline (1000mL) 1,000 ML 50 ML IV
[2024-12-19 03:43] VITALS: BP 140/74; PULSE 73; RESP 15; TEMP 36.9; O2SAT 96
[2024-12-19 06:43] LABS: Hematocrit 23.3 % (40-54); Hemoglobin 8.0 g/dL (13.0-16.5); Immature Granulocytes Count 0.140 X10^3/uL (0.0-0.0); Mean Corp Hgb Conc 34.3 g/dL (32-36); Mean Corpuscular Volume 92.8 fL (80-94); Mean Platelet Vol. 8.6 fl (6.2-12.0); NRBC Flagged by Analyzer 0 % (0-5); Platelet Count 206 K/mm3 (150-450); RBC Distribution Width CV 13.4 % (11.6-14.6); RBC Distribution Width SD 46.1 fl (35.1-43.9); Red Blood Count 2.51 M/mm3 (4.6-6.2); White Blood Count 5.8 K/mm3 (4.4-11.0)
[2024-12-19 07:32] LABS: Anion Gap 11 (5-15); BUN 5 mg/dL (4-19); BUN/Creat Ratio 6.0 RATIO (10-20); Calcium,Total 8.1 mg/dL (7.6-11.0); Carbon Dioxide 21.3 mmol/L (21.0-32.0); Chloride 98 mmol/L (98-108); Estimated Creatinine Clearance 80.54 ml/min (50-250); Glucose 103 mg/dL (70-99); Potassium 3.9 mmol/L (3.3-5.1)
[2024-12-19 09:20] VITALS: BP 137/70; PULSE 90; RESP 16; TEMP 36.9; O2SAT 97
[2024-12-19 09:26] VITALS: BP 137/70; PULSE 90
--- NOTE | 2024-12-19 11:50 | CASEMGMT ---
CHUY PEREZ into pt room, pt lying in bed with at bedside. Discussed with pt that home therapy was set up prior to therapy evals and CHUY PEREZ wanted to confirm with pt that he feels he still can return home after the evals. Pt states he does not want to go to a SNF. Pt states he feels safe to dc home with [facility]. Pt and deny further needs at this time. Pt to dc today with chioma.
[2024-12-19 14:00] VITALS: BP 149/73; PULSE 84; RESP 16; TEMP 36.6; O2SAT 98
== END 2024-12-19 14:24 | disposition home health service (06) | DRG 662 ==
PROVIDERS: Admitting Provider Urology; PCP Family Medicine; Visit Provider Urology
PROC: 0W3R8ZZ Control Bleeding in Genitourinary Tract, Via Natural or Artificial Opening Endoscopic (ICD-10-PCS; CPT 52214; principal; 2024-12-17 14:10)
DX: R31.9 Hematuria, unspecified (principal); E43 Unspecified severe protein-calorie malnutrition; D68.32 Hemorrhagic disorder due to extrinsic circulating anticoagulants; E87.1 Hypo-osmolality and hyponatremia; I10 Essential (primary) hypertension; Z87.891 Personal history of nicotine dependence; Z79.899 Other long term (current) drug therapy; Z79.82 Long term (current) use of aspirin; Z86.73 Personal history of transient ischemic attack (TIA), and cerebral infarction without residual deficits; Z68.29 Body mass index [BMI] 29.0-29.9, adult
CPT/HCPCS: 36415; 80048; 85025; 97162; 97530; 97802; 99406; J0744; J2405